=== PATIENT | female | born 1965 | race Caucasian/White ===

== ENCOUNTER 2018-03-11 19:14 | Inpatient (IN) ==
[2018-03-11] MEDS ORDERED: Piperacillin/Tazobactam 3.375 GM in 0.9 % Sodium Chloride Mini Bag 100 ML IVPB ONE (19:53)
--- NOTE | 2018-03-11 20:03 | Emergency Department Note ---
Disposition Clinical Impression: Hyperglycemia, Cellulitis Diabetic foot ulcer Qualifiers: Diabetic foot ulcer location: unspecified part of foot Diabetes mellitus type: type 2 Laterality: right Non-pressure ulcer stage: unspecified non-pressure ulcer stage Qualified Code(s): E11.621 - Type 2 diabetes mellitus with foot ulcer Disposition: Admitted As Inpatient Condition: Fair Time of Disposition: 20:56 General Adult HPI - General Chief complaint: ED Wound/Laceration Stated complaint: Rt foot infection Time Seen by Provider: 03/11/18 19:41 Source: patient Mode of arrival: wheelchair Limitations: no limitations Nursing Notes Reviewed: Yes Vital Signs Reviewed: Yes - History of Present Illness HPI Narrative: 52-year-old female with significant past medical history of diabetes who was previously on insulin but no longer presenting to the emergency department chief complaint of right foot infection. Patient states she noticed a small ulceration on the bottom of her right foot approximately one month ago. Over the past week it has acutely gotten worse and severe redness. She was seen by her primary care physician 2 days ago and given clindamycin. She has been taking as prescribed but the redness has gotten worse and now starting to track up her leg. Patient is unable to walk on the foot. She states she is overall just not feeling well. Denies any fevers but does disclose nausea. Pain Scale: 10 - Related Data Home Medications Medication Instructions Recorded Confirmed Bifidobacterium Infantis [Align] 4 mg PO DAILY 04/20/17 03/11/18 Colestipol HCl [Colestid] 2 gm PO DAILY 04/20/17 03/11/18 Dicyclomine [Bentyl] 20 mg PO QID 04/20/17 03/11/18 Gabapentin [Neurontin] 1,200 mg PO HS 04/20/17 03/11/18 Gabapentin [Neurontin] 800 mg PO BID 04/20/17 03/11/18 Insulin ASPART [Novolog Flexpen] 30 unit SQ DAILY 04/20/17 03/11/18 Insulin Glargine,Hum.rec.anlog 35 unit SQ HS 04/20/17 03/11/18 [Lantus Solostar] Lisinopril-HCTZ 10-12.5 [Prinzide 1 tab PO DAILY 04/20/17 03/11/18 10-12.5] Simvastatin [Zocor] 40 mg PO DAILY 04/20/17 03/11/18 Clindamycin HCl [Cleocin HCl] 300 mg PO TID 03/11/18 03/11/18 Previous Rx's Medication Instructions Recorded Acetaminophen [Tylenol] 650 mg PO Q6HR PRN #0 tablet 01/10/16 Allergies Allergy/AdvReac Type Severity Reaction Status Date / Time No Known Allergies Allergy Verified 04/20/17 08:52 All systems ED: reviewed and negative except as stated. Constitutional: Denies: fever, chills Eyes: Reports: as per HPI ENT ED: Reports: as per HPI Cardiovascular: Denies: chest pain, palpitations, dyspnea on exertion Respiratory: Denies: cough, dyspnea, wheezes Gastrointestinal: Reports: nausea. Denies: abdominal pain, vomiting, diarrhea Genitourinary: Reports: as per HPI Musculoskeletal: Reports: as per HPI Integumentary: Reports: other (Ulceration) Neurological: Denies: headache, weakness Psychiatric: Reports: as per HPI Endocrine: Reports: as per HPI Hematological/Lymphatic: Reports: as per HPI Allergic/Immunologic: Reports: as per HPI Past Medical History - Past Medical History Attestation: Yes The following information was validated with the patient. Medical history: Reports: arthritis, DVT, diabetes, GERD, hyperlipidemia, hypertension, pulmonary embolus Surgical history: Reports: , cholecystectomy, orthopedic, other Psychiatric history: Reports: no psych history ASSISTANT HAIRSTYLIST history: Reports: no ASSISTANT HAIRSTYLIST history - Social History Smoking Status: Never smoker Smokeless Tobacco Status: No Alcohol use: Reports: none Drug use: Reports: none Physical Exam - General Limitations: no limitations General appearance: alert, in no apparent distress - Head Head exam: atraumatic, normocephalic, normal inspection - Eye Eye exam: Present: normal appearance. Absent: scleral icterus, conjunctival injection - ENT ENT exam: normal exam, mucous membranes moist - Neck Neck exam: Present: normal inspection, full ROM. Absent: tenderness, meningismus - Chest Chest inspection: Present: normal inspection, symmetric chest wall rise. Absent : tenderness, rash - Respiratory Respiratory exam: Present: normal lung sounds bilaterally. Absent: respiratory distress, wheezes - Cardiovascular Cardiovascular exam: Present: normal rhythm, tachycardia, normal heart sounds - Abdominal Exam Abdominal exam: Present: soft, Non-Tender. Absent: distention, guarding, rebound - Extremities Exam Extremities exam: Present: other (Ulceration noted to the right all of the foot. Redness surrounding the area with tenderness and swelling. Mild redness tracking up the right lower extremity) - Neurological Exam Neurological exam: Present: alert, oriented X3 - Psychiatric Psychiatric exam: Present: normal affect, normal mood - Skin Skin exam: Present: warm, intact Course Course Narrative: 52-year-old female presenting with diabetic ulcer of the right lower extremity. Patient has failed outpatient therapy with clindamycin. Redness is worse and is starting to track up her leg. Patient also is tachycardic and nauseous but otherwise hemodynamically stable. Patient is alert and oriented 3. At this time will obtain basic laboratory analysis including CBC, BMP along with blood cultures. We will start the patient on IV Zosyn and vancomycin and plan to admit her for further evaluation. Patient agrees with this plan. - Reevaluation(s) Reevaluation #1: Patient's laboratory analysis shows hyperglycemia at 512. We will provide the patient with a liter of fluids and 10 units of insulin at this time. Patient does not have a Therefore no concern for DKA. I spoke with the hospitalist manager transition Dr. Ruiz who agrees to accept the patient at this time. Patient remains alert and oriented 3 with hemodynamically stable vital signs. Patient agrees with this plan. Vital Signs Temperature 98.7 F 03/11/18 19:33 Pulse Rate 117 03/11/18 19:33 Respiratory Rate 20 03/11/18 19:33 Blood Pressure 145/97 03/11/18 19:33 O2 Sat by Pulse Oximetry 98 03/11/18 19:33 Temperature 98.7 F 03/11/18 20:43 Pulse Rate 117 03/11/18 20:43 Respiratory Rate 20 03/11/18 20:43 Blood Pressure 145/97 03/11/18 20:43 O2 Sat by Pulse Oximetry 98 03/11/18 20:43 Oxygen Delivery Oxygen Delivery Room Air Medical Decision Making - Lab Data Result diagrams: 03/11/18 19:59 03/11/18 19:59 Lab Results 03/11/18 03/11/18 Range/Units 19:59 19:59 WBC 10.2 (4.3-11.1) K/mcL RBC 4.41 (3.82-4.97) M/mcL Hgb 13.4 (11.5-15.4) g/dL Hct 37.6 (35.3-44.9) % MCV 85.3 (83.0-100.0) fL MCH 30.4 (28.0-33.3) pg MCHC 35.6 H (31.6-35.5) g/dL RDW 11.8 (11.5-14.5) % Plt Count 241 (140-400) K/mcL MPV 9.6 (9.4-12.4) fL Immature Gran % 0.5 (0-4) % Seg Neutrophils % 84.4 % Lymphocytes % 10.9 % Monocytes % 3.9 % Eosinophils % 0.2 % Basophils % 0.1 % Neutrophils # 8.6 (1.6-8.9) K/mcL Lymphocytes # 1.1 (0.6-4.6) K/mcL Monocytes # 0.4 (0.0-1.3) K/mcL Eosinophils # 0.0 (0.0-0.6) K/mcL Basophils # 0.0 (0.0-0.2) K/mcL Sodium 126 L (136-145) mEq/L Potassium 4.4 (3.5-5.1) mEq/L Chloride 93 L (98-107) mEq/L Carbon Dioxide 24 (23-29) mEq/L BUN 11 (6-20) mg/dL Creatinine 0.72 (0.60-1.20) mg/dL Est GFR ( Amer) > 60 (> 60) Est GFR (Non-Af Amer) > 60 (> 60) BUN/Creatinine Ratio 15 (6-26) Glucose 512 H* (70-105) mg/dL Calculated Osmolality 284 (280-300) Calcium 9.6 (8.6-10.3) mg/dL Attestation Statement - Attestation Attestation: I, Mateusz Serrano DO, examined this patient [id number] and my medical decision-making was reviewed with Dr. Kaye Kemp, Resident Physician. I agree with the documented findings, disposition and treatment plan as described except to the extent set forth below. Please see my progress notes for details.
[2018-03-11 20:13] LABS: Basophils % 0.1 %; Eosinophils % 0.2 %; Hematocrit 37.6 % (35.3-44.9); Hemoglobin 13.4 g/dL (11.5-15.4); Immature Granulocytes % 0.5 % (0-4); Lymphocytes # 1.1 K/mcL (0.6-4.6); Lymphocytes % 10.9 %; Mean Corpuscular HGB Conc 35.6 g/dL (31.6-35.5); Mean Corpuscular Hemoglobin 30.4 pg (28.0-33.3); Mean Corpuscular Volume 85.3 fL (83.0-100.0); Mean Platelet Volume 9.6 fL (9.4-12.4); Monocytes # 0.4 K/mcL (0.0-1.3); Monocytes % 3.9 %; Neutrophils # 8.6 K/mcL (1.6-8.9); Platelet Count 241 K/mcL (140-400); Red Blood Count 4.41 M/mcL (3.82-4.97); Red Cell Distribution Width 11.8 % (11.5-14.5); Segmented Neutrophils % 84.4 %
[2018-03-11] MEDS ORDERED: Ondansetron 4 MG/2 ML VIAL IVP ONE (20:20)
[2018-03-11 20:42] LABS: BUN/Creatinine Ratio 15 (6-26); Blood Urea Nitrogen 11 mg/dL (6-20); Calcium 9.6 mg/dL (8.6-10.3); Carbon Dioxide 24 mEq/L (23-29); Chloride 93 mEq/L (98-107); Glucose 512 mg/dL (70-105); Osmolality,Calculated 284 (280-300); Potassium 4.4 mEq/L (3.5-5.1); Sodium 126 mEq/L (136-145); eGFR For Non-African Americans > 60 (> 60)
[2018-03-11] MEDS ORDERED: Insulin Human Regular 10 UNIT in 0.9 % Sodium Chloride 10 ML IV ONE (20:43)
[2018-03-11] MEDS ORDERED: 0.9 % Sodium Chloride 1,000 ML IVC ONE (20:44)
[2018-03-11] MEDS ORDERED: *HR* HYDROcodone/Acet 5/325 mg TABLET PO ONE (20:56)
[2018-03-11 21:05] LABS: Estimated Average Glucose 332 mg/dl; Hemoglobin A1C 13.2 %
--- NOTE | 2018-03-11 21:07 | Emergency Department Note ---
Disposition Clinical Impression: Hyperglycemia, Cellulitis Diabetic foot ulcer Qualifiers: Diabetic foot ulcer location: unspecified part of foot Diabetes mellitus type: type 2 Laterality: right Non-pressure ulcer stage: unspecified non-pressure ulcer stage Qualified Code(s): E11.621 - Type 2 diabetes mellitus with foot ulcer Disposition: Admitted As Inpatient Condition: Fair Time of Disposition: 21:07 General Adult HPI - General Chief complaint: ED Extremity Problem,Nontraumatic Stated complaint: Rt foot infection Time Seen by Provider: 03/11/18 19:41 Source: patient Mode of arrival: wheelchair Limitations: no limitations - History of Present Illness Pain Scale: 10 - Related Data Home Medications Medication Instructions Recorded Confirmed Bifidobacterium Infantis [Align] 4 mg PO DAILY 04/20/17 03/11/18 Colestipol HCl [Colestid] 2 gm PO DAILY 04/20/17 03/11/18 Dicyclomine [Bentyl] 20 mg PO QID 04/20/17 03/11/18 Gabapentin [Neurontin] 1,200 mg PO HS 04/20/17 03/11/18 Gabapentin [Neurontin] 800 mg PO BID 04/20/17 03/11/18 Insulin ASPART [Novolog Flexpen] 30 unit SQ DAILY 04/20/17 03/11/18 Insulin Glargine,Hum.rec.anlog 35 unit SQ HS 04/20/17 03/11/18 [Lantus Solostar] Lisinopril-HCTZ 10-12.5 [Prinzide 1 tab PO DAILY 04/20/17 03/11/18 10-12.5] Simvastatin [Zocor] 40 mg PO DAILY 04/20/17 03/11/18 Clindamycin HCl [Cleocin HCl] 300 mg PO TID 03/11/18 03/11/18 Previous Rx's Medication Instructions Recorded Acetaminophen [Tylenol] 650 mg PO Q6HR PRN #0 tablet 01/10/16 Allergies Allergy/AdvReac Type Severity Reaction Status Date / Time No Known Allergies Allergy Verified 04/20/17 08:52 Constitutional: Denies: fever, chills Eyes: Reports: as per HPI ENT ED: Reports: as per HPI Cardiovascular: Denies: chest pain, palpitations, dyspnea on exertion Respiratory: Denies: cough, dyspnea, wheezes Gastrointestinal: Reports: nausea. Denies: abdominal pain, vomiting, diarrhea Genitourinary: Reports: as per HPI Musculoskeletal: Reports: as per HPI Integumentary: Reports: other (Ulceration) Neurological: Denies: headache, weakness Psychiatric: Reports: as per HPI Endocrine: Reports: as per HPI Hematological/Lymphatic: Reports: as per HPI Allergic/Immunologic: Reports: as per HPI Past Medical History - Past Medical History Medical history: Reports: arthritis, DVT, diabetes, GERD, hyperlipidemia, hypertension, pulmonary embolus Surgical history: Reports: , cholecystectomy, orthopedic, other Psychiatric history: Reports: no psych history AIRPLANE COVERER history: Reports: no AIRPLANE COVERER history - Social History Smoking Status: Never smoker Smokeless Tobacco Status: No Alcohol use: Reports: none Drug use: Reports: none Physical Exam - General Limitations: no limitations General appearance: alert, in no apparent distress Course Vital Signs Temperature 98.7 F 03/11/18 19:33 Pulse Rate 117 03/11/18 19:33 Respiratory Rate 20 03/11/18 19:33 Blood Pressure 145/97 03/11/18 19:33 O2 Sat by Pulse Oximetry 98 03/11/18 19:33 Temperature 98.7 F 03/11/18 20:43 Pulse Rate 117 03/11/18 20:43 Respiratory Rate 20 03/11/18 20:43 Blood Pressure 145/97 03/11/18 20:43 O2 Sat by Pulse Oximetry 98 03/11/18 20:43 Oxygen Delivery Oxygen Delivery Room Air Medical Decision Making - Lab Data Result diagrams: 03/11/18 19:59 03/11/18 19:59 Lab Results 03/11/18 03/11/18 Range/Units 19:59 19:59 WBC 10.2 (4.3-11.1) K/mcL RBC 4.41 (3.82-4.97) M/mcL Hgb 13.4 (11.5-15.4) g/dL Hct 37.6 (35.3-44.9) % MCV 85.3 (83.0-100.0) fL MCH 30.4 (28.0-33.3) pg MCHC 35.6 H (31.6-35.5) g/dL RDW 11.8 (11.5-14.5) % Plt Count 241 (140-400) K/mcL MPV 9.6 (9.4-12.4) fL Immature Gran % 0.5 (0-4) % Seg Neutrophils % 84.4 % Lymphocytes % 10.9 % Monocytes % 3.9 % Eosinophils % 0.2 % Basophils % 0.1 % Neutrophils # 8.6 (1.6-8.9) K/mcL Lymphocytes # 1.1 (0.6-4.6) K/mcL Monocytes # 0.4 (0.0-1.3) K/mcL Eosinophils # 0.0 (0.0-0.6) K/mcL Basophils # 0.0 (0.0-0.2) K/mcL Sodium 126 L (136-145) mEq/L Potassium 4.4 (3.5-5.1) mEq/L Chloride 93 L (98-107) mEq/L Carbon Dioxide 24 (23-29) mEq/L BUN 11 (6-20) mg/dL Creatinine 0.72 (0.60-1.20) mg/dL Est GFR ( Amer) > 60 (> 60) Est GFR (Non-Af Amer) > 60 (> 60) BUN/Creatinine Ratio 15 (6-26) Glucose 512 H* (70-105) mg/dL Calculated Osmolality 284 (280-300) Calcium 9.6 (8.6-10.3) mg/dL Attestation Statement - Attestation Attestation: I, Mateusz Serrano DO, examined this patient [id number] and my medical decision-making was reviewed with Dr. Kaye Kemp, Resident Physician. I agree with the documented findings, disposition and treatment plan as described except to the extent set forth below. Please see my progress notes for details. 52-year-old female presents emergency room for evaluation of right foot wound. Patient has had poorly controlled diabetes for several months. She has not been able to get her medications for her diabetes secondary to insurance related issues. Currently she is denying chest pain shortness of breath headache vision changes nausea vomiting or diarrhea. No fevers no chills. Patient has had generalized funny sensation across her body over the last several days mainly when this wound or redness is coming up on her foot. Patient denies any trauma or injuries no puncture wounds noted. She is up-to- date on her tetanus within the last 5 years. She has not traveled outside the country and has no other concerning issues. Main complaint is the wound in the foot no redness. On physical exam she has warmth redness and discomfort into the calf of the right leg and goes down over the ankle and into the foot. At the plantar aspect of the great toe over the base of the MTP the patient has redness and what appears to be diabetic foot ulcer that still has skin and thickened callus over the apex of the MTP with redness and stranding going away from it. There is concern for diabetic foot ulcer is infected. X-ray was completed yesterday outside facility did not show any bony deterioration or abnormality. Refrain from reordering x-ray this time. Patient will be started on IV antibiotics as well as fluids. She was tachycardic initially but was afebrile. Being labs including CBC and chemistry will be added on at this time as well as a glucose and an A1c. Concern is noted for the patient having severe. Controlled glucose that is requiring other intervention. She does not have any specific history of diabetic ketoacidosis. Patient was symptomatic control. Admission process will be established. See detailed documentation of the physical exam, medical intervention, medical decision-making and disposition the resident physician's note. No critical care provider the patient's treatment course at this time. 2100 Patient has a glucose of greater than 500. 10 units of insulin will be given at this time for symptomatic control. She does not have any signs of diabetic ketoacidosis. IV antibiotics have been provided. Hospitalist Dr. Allred has reviewed the case and has no other recommendations or concern. Patient will be admitted for continuation of care endocrinology evaluation, diabetes control, podiatry evaluation. Patient is informed she is comfortable this plan. No other intervention is required at this point. Patient will be admitted for continuation of care. She will be observed in emergency room until admission process is completed.
[2018-03-12] MEDS ORDERED: Naloxone 0.4 MG/ML INJ IVP PRN (00:21)
[2018-03-12] MEDS ORDERED: D5% in Water 1,000 ML IVC PRN (00:31)
[2018-03-12] MEDS ORDERED: *HR* Dextrose 50 % in Water (Syg) 50 ML SYRINGE IVP PRN (00:31)
[2018-03-12] MEDS ORDERED: Dextrose Gel 15 GM/37.5 ML TUBE PO PRN ×2 (00:31)
--- NOTE | 2018-03-12 00:34 | Internal Med History&Physical ---
Date of Encounter: 03/12/18 Time of Encounter: 00:34 Internal Medicine - H&P: HPI Chief complaint: Diabetic Foot Ulcer Admitted From: Emergency Dept Plans for Post Hospital Care: Home History of present illness: Ms. Santo is a 52 year old female with a past medical history of deep venous thrombosis, diabetes mellitus, GERD, hyperlipidemia, hypertension, pulmonary embolism. She presented to the ED on 03/11 with the chief complaint of worsening redness, pain, and swelling of a right foot wound. She states she visited her PCP 2 days ago and was started on clindamycin however it has not improved. She admits to additional chills, nausea, and intermittent chest pain. She denies fever or shortness of breath. She denies tobacco/acohol/drug use. In the ED she was slightly tachycardic but vital signs were otherwise within normal limits. White count was not elevated. Blood cultures were drawn and she was given 1L bolus normal saline, 1 dose IV Vancomycin and 1 dose IV Zosyn. Past Med Surg Social Fam HX - Past Medical History Medical history: arthritis, DVT, diabetes, GERD, hyperlipidemia, hypertension, pulmonary embolus Psychiatric history: depression - Past Surgical History Surgical History: , cholecystectomy, orthopedic, other, IVC filter Additional surgical history: ANNMARIE FILTER. uterine ablation. right achilles tendon repair. colonoscopy - Social History Smoking Status: Never smoker Smokeless Tobacco Status: No Alcohol use: none Drug use: none - Family History Mother Adopted: [place]: Amelia Age: 70 Living Status: Age at : 70 Cause of : cancer and diabetes Hx Family Cardiac Disorders: Yes (PACEMAKER, [place] X3 WITH STENTS, HTN) Hx Family Respiratory Disorders: Yes (COPD) Hx Family Cancer: Yes (stomach) Hx Family GI Disorders: (GERD) Hx Family Endocrine Disorder: Yes (diabetes) Father Adopted: [place]: Santhosh Age: 36 Family Member Ethnicity: Non- Living Status: Age at : 36 Cause of : etoh Hx Family Cardiac Disorders: No Hx Family Respiratory Disorders: No Hx Family Cancer: No Hx Family GI Disorders: No Hx Family Endocrine Disorder: Yes (cirrohsis) Hx Family Neuromuscular Disorders: No Hx Family Neurologic Disorders: No Hx Family HEENT Disorders: No Hx Family Autoimmune Disorders: No Sister Adopted: [place]: Marsha Age: 36 Living Status: Age at : 36 Cause of : sepsis and diabetes Hx Family Endocrine Disorder: Yes (diabetes) Internal Medicine - H&P: Meds Acetaminophen [Tylenol] 650 mg PO Q6HR PRN #0 tablet 01/10/16 [Rx] Bifidobacterium Infantis [Align] 4 mg PO DAILY 04/20/17 [History] Colestipol HCl [Colestid] 2 gm PO DAILY 04/20/17 [History] Dicyclomine [Bentyl] 20 mg PO QID 04/20/17 [History] Gabapentin [Neurontin] 1,600 mg PO HS 04/20/17 [History] Gabapentin [Neurontin] 800 mg PO BID 04/20/17 [History] Insulin ASPART [Novolog Flexpen] 30 unit SQ DAILY 04/20/17 [History] Insulin Glargine,Hum.rec.anlog [Lantus Solostar] 35 unit SQ HS 04/20/17 [History ] Lisinopril-HCTZ 10-12.5 [Prinzide 10-12.5] 1 tab PO DAILY 04/20/17 [History] Simvastatin [Zocor] 40 mg PO DAILY 04/20/17 [History] Clindamycin HCl [Cleocin HCl] 300 mg PO TID 03/11/18 [History] 3 Allergy/AdvReac Type Severity Reaction Status Date / Time No Known Allergies Allergy Verified 04/20/17 08:52 All Systems PM: A 10-system review of systems was performed and is negative for pertinent findings except as documented above in the HPI. - Constitutional Constitutional: chills, no fever(s), no malaise - Cardiovascular Cardiovascular ROS IM: chest pain, no diaphoresis, no dyspnea, no dyspnea on exertion, no irregular heart rhythm, no palpitations, no syncope - Respiratory Respiratory: no cough, no dyspnea, no dyspnea on exertion - Gastrointestinal Gastrointestinal: nausea, vomiting, no abdominal pain, no diarrhea - Musculoskeletal Musculoskeletal ROS IM: arthralgias, numbness - Integumentary Integumentary IM: erythema, new lesions, non-healing lesions - Neurological Neurological ROS: no abnormal speech, no focal weakness, no weakness - Psychiatric Psychiatric: no confusion - Constitutional Vitals: Temp Pulse Resp BP Pulse Ox 98.9 F 112 14 131/85 99 03/11/18 22:38 03/11/18 22:38 03/11/18 22:38 03/11/18 22:38 03/11/18 22:38 Exam: Patient no acute distress, alert and oriented 3 Cranial nerves II through XII intact Heart in regular rate and rhythm, no murmur or gallop Lungs clear to auscultation bilaterally without wheeze or rales or rhonchi Abdomen soft and nontender with normal bowel sounds present Bilateral lower extremities 1+ pitting edematous Right foot exhibits heavy callus formation the plantar aspect of the first MTP, with surrounding edema and erythema that is contiguous throughout the medial aspect of the forefoot, the edema continues up past the ankle, there is no open wound area Motor is intact in all 5 digits and in the ankle, sensation is intact throughout the foot but diminished in the toes Right foot is tender to palpation throughout up past the ankle and into the lower leg Skin is warm and dry Internal Med - H&P Results - Labs CBC & Chem 7: 03/12/18 01:30 03/11/18 19:59 - Assessment and plan (1) Diabetic foot ulcer Current Visit: Yes Status: Acute Assessment and plan: Patient presented with worsening right foot wound Exam does not reveal open wound however there is most likely ulcer underneath chronic callus formation resulting in concurrent cellulitis She was tried on 2 days of clindamycin via PCP but had increasing redness, swelling, and pain On presentation she was tachycardic but vitals were otherwise within normal limits White blood cell count was within normal limits, does not meet SIRS criteria Received 1 L bolus normal saline, 1 dose of vancomycin, 1 dose Zosyn Blood Cultures drawn, patient has history of MRSA wound 01/05/18 Plan MIVF normal saline 125ml/hr x 2L IV Vancomycin, IV Zosyn Monitor Blood Cultures Podiatry Consult Qualifiers: Diabetic foot ulcer location: unspecified part of foot Diabetes mellitus type: type 2 Laterality: right Non-pressure ulcer stage: unspecified non- pressure ulcer stage Qualified Code(s): E11.621 - Type 2 diabetes mellitus with foot ulcer; L97.519 - Non-pressure chronic ulcer of other part of right foot with unspecified severity (2) Chest pain Current Visit: Yes Status: Acute Assessment and plan: Patient mentioned 1 day of sharp intermittent chest pain Patient does not have cardiac history EKG showed sinus rhythm, troponin <0.03 Plan Continue to monitor Qualifiers: Chest pain type: unspecified Qualified Code(s): R07.9 - Chest pain, unspecified (3) DVT (deep venous thrombosis) Current Visit: Yes Status: Suspected Assessment and plan: Patient complains of right lower leg pain with swelling She has a history of recurrent DVTs and pulmonary embolism She has a Kingsley IVC filter and is not on anticoagulation. Plan Heparin Drip standard dose Doppler scheduled in AM Qualifiers: DVT location: lower extremity Affected thrombotic vein of extremity: unspecified lower extremity distal vein Chronicity: unspecified Laterality: right Qualified Code(s): I82.4Z1 - Acute embolism and thrombosis of unspecified deep veins of right distal lower extremity (4) Hyperglycemia due to type 2 diabetes mellitus Current Visit: Yes Status: Acute Assessment and plan: Glucose found to be 512 on admission She states that she has been unable to get her home insulin because of an insurance change 10 units short-acting insulin were given Glucose recheck was in the low 200s Plan 10 units basal levemir HS low dose SSI protocol with glucose checks ACHS Diabetic Diet Qualifiers: Diabetes mellitus mcc insulin use: with mcc use Qualified Code( s): E11.65 - Type 2 diabetes mellitus with hyperglycemia; Z79.4 - [facility] ( current) use of insulin (5) HTN (hypertension) Current Visit: No Status: Chronic Assessment and plan: Patient has chronic hypertension managed with home medications Blood pressure stable here We will continue home lisinopril Qualifiers: Hypertension type: essential hypertension Qualified Code(s): I10 - Essential (primary) hypertension (6) HLD (hyperlipidemia) Current Visit: No Status: Chronic Assessment and plan: Patient has history of chronic hyperlipidemia managed with home medications We will resume home simvastatin Qualifiers: Hyperlipidemia type: unspecified Qualified Code(s): E78.5 - Hyperlipidemia , unspecified (7) DVT prophylaxis Current Visit: No Status: Acute Assessment and plan: Heparin drip - Time Spent With Patient Total time spent is greater than 50% in coordination of care (as documented) at patient's floor/unit and/or counseling patient:
[2018-03-12] MEDS ORDERED: *HR* Heparin 5,000 UNIT/ML VIAL IVP PRN ×2 (01:14)
[2018-03-12] MEDS ORDERED: *HR* Heparin 5,000 UNIT/ML VIAL IVP ONE (01:14)
[2018-03-12] MEDS ORDERED: Heparin 25,000 UNIT/500 ML D5W 25,000 UNIT/500 ML BAG IVC SCH (01:15)
[2018-03-12] MEDS: Gabapentin 400 MG CAPSULE PO SCH ×4 (01:22→20:09)
[2018-03-12] MEDS: 0.9 % Sodium Chloride 1,000 ML IVC SCH ×2 (01:23→10:26)
[2018-03-12 01:56] LABS: Basophils % 0.2 %; Eosinophils # 0.1 K/mcL (0.0-0.6); Eosinophils % 0.6 %; Hematocrit 32.7 % (35.3-44.9); Immature Granulocytes % 0.3 % (0-4); Lymphocytes # 1.8 K/mcL (0.6-4.6); Lymphocytes % 18.1 %; Mean Corpuscular HGB Conc 35.2 g/dL (31.6-35.5); Mean Corpuscular Hemoglobin 30.2 pg (28.0-33.3); Mean Corpuscular Volume 85.8 fL (83.0-100.0); Mean Platelet Volume 9.6 fL (9.4-12.4); Monocytes # 0.5 K/mcL (0.0-1.3); Monocytes % 5.2 %; Neutrophils # 7.7 K/mcL (1.6-8.9); Platelet Count 225 K/mcL (140-400); Red Blood Count 3.81 M/mcL (3.82-4.97); Red Cell Distribution Width 11.9 % (11.5-14.5); Segmented Neutrophils % 75.6 %
[2018-03-12 01:58] LABS: Hematocrit 35.3 % (35.3-44.9); Hemoglobin 12.1 g/dL (11.5-15.4); Mean Corpuscular HGB Conc 34.3 g/dL (31.6-35.5); Mean Corpuscular Hemoglobin 29.7 pg (28.0-33.3); Mean Corpuscular Volume 86.7 fL (83.0-100.0); Mean Platelet Volume 9.3 fL (9.4-12.4); Platelet Count 232 K/mcL (140-400); Red Blood Count 4.07 M/mcL (3.82-4.97); Red Cell Distribution Width 11.6 % (11.5-14.5)
[2018-03-12 02:00] LABS: Hemoglobin 11.5 g/dL (11.5-15.4)
[2018-03-12 02:01] LABS: Heparin anti-factor XA UFH 0.04 IU/mL (0.30-0.70); Prothrombin Time 10.8 Seconds (9.4-12.1)
[2018-03-12 02:11] LABS: BUN/Creatinine Ratio 19 (6-26); Blood Urea Nitrogen 9 mg/dL (6-20); Calcium 8.5 mg/dL (8.6-10.3); Carbon Dioxide 21 mEq/L (23-29); Chloride 102 mEq/L (98-107); Glucose 295 mg/dL (70-105); Osmolality,Calculated 286 (280-300); Potassium 3.6 mEq/L (3.5-5.1); Sodium 133 mEq/L (136-145); eGFR For Non-African Americans > 60 (> 60)
[2018-03-12] MEDS ORDERED: Insulin LISPRO 300 UNITS/3 ML VIAL SQ SCH (07:30)
--- NOTE | 2018-03-12 08:53 | Podiatry Progress Note ---
Date of Encounter: 03/12/18 Time of Encounter: 08:50 - Assessment and Plan (1) Cellulitis Current Visit: Yes Status: Acute Continue IV antibiotics. Patient advised to elevate and compression on the right foot. Qualifiers: Qualified Code(s): L03.115 - Cellulitis of right lower limb (2) Diabetic foot ulcer Current Visit: Yes Status: Acute X-rays are reviewed of the right foot. No evidence of soft tissue emphysema at this time. No evidence of foreign body. Given elevated ESR and CRP, I recommend MRI of the right foot to evaluate for soft tissue involvement or deep abscess. Continue IV antibiotics. We will discuss any surgical treatment plan based on MRI results. Qualifiers: Diabetic foot ulcer location: unspecified part of foot Diabetes mellitus type: type 2 Laterality: right Non-pressure ulcer stage: unspecified non- pressure ulcer stage Qualified Code(s): E11.621 - Type 2 diabetes mellitus with foot ulcer; L97.519 - Non-pressure chronic ulcer of other part of right foot with unspecified severity (3) Abscess Current Visit: Yes Status: Acute Culture taken at bedside. Aerobe and anaerobe cultures sent to micro. Antibiotics to be tailored toward sensitivities. Subjective Principal diagnosis: cellulitis Interval history: Ms. Santo is an uncontrolled type II diabetic presenting with acute diabetic foot infection. She reports that she developed worsening redness and drainage from a chronic right plantar foot wound over the past week. She reports nausea over the past 2 days. She denies any history of non-healing wounds or diabetic foot infections. She is not sure what caused the initial wound. The foot feels warm and redness has worsened. Objective - Vital Signs Vital Signs: Vital Signs Temp Pulse Resp BP Pulse Ox 03/12/18 06:54 98.4 F 98 16 121/80 95 03/12/18 03:00 98.5 F 91 15 117/75 97 03/11/18 22:38 98.9 F 112 14 131/85 99 03/11/18 21:50 100.0 F H 18 144/97 Intake and Output 03/11/18 03/12/18 03/12/18 23:59 07:59 15:59 Intake Total 1350 / 1350 0 / 0 Output Total 0 / 0 1050 / 1050 Balance 1350 / 1350 -1050 / -1050 Intake: IV Fluids 1350 / 1350 0.9 % Sodium Chloride 1,000 ML 1000 / 1000 @ 999 mls/hr IVC .Q1H1M [facility] Rx# :[id number] Zosyn 3.375 GM In 0.9 % Sodium 100 / 100 Chloride (Mini-Bag +) 100 ML @ 25 mls/hr IVPB ONCE [facility] Rx#: [id number] Vancocin 1,250 MG In 0.9 % 250 / 250 Sodium Chloride 250 ML @ 167 mls/hr IVPB ONCE [facility] Rx#: [id number] Oral 0 / 0 0 / 0 Output: Urine 0 / 0 1050 / 1050 Other: # Voids 1 # Bowel Movements 0 0 Weight 77.6 kg 76.4 kg Blood Glucose* 512 318 Patient Weight 03/12/18 23:59 Weight 76.4 kg - Exam Exam: Vascular: DP and PT 1+ bilateral. Capillary refill less than 3 seconds all digits. Right forefoot warm to touch. Dermatology: Right plantar first metatarsal head and hyperkeratotic tissue with underlying ulceration approximately 1cm x 1cm x 1.5cm. Small amount of purulence expressed from the ulceration upon debridement. Wound did not probe to bone. Erythema extending dorsally to level of midfoot. Musculoskeletal: Tenderness with palpation right plantar first MPJ. Mild pain with range of motion of first MPJ. No crepitus noted. Neuro: Sensation diminished to forefoot. - Lab Result Diagrams: 03/12/18 01:30 03/12/18 01:05 Labs: Abnormal lab results MPV 9.3 fL (9.4-12.4) L 03/12/18 01:30 Sodium 133 mEq/L (136-145) L 03/12/18 01:05 Carbon Dioxide 21 mEq/L (23-29) L 03/12/18 01:05 Creatinine 0.48 mg/dL (0.60-1.20) L 03/12/18 01:05 Glucose 295 mg/dL (70-105) H 03/12/18 01:05 POC Glucose 277 mg/dL (70-99) H 03/12/18 01:23 Hemoglobin A1c 13.2 % (-5.6) H 03/11/18 20:32 Calcium 8.5 mg/dL (8.6-10.3) L 03/12/18 01:05 Consult Discharge Plan - Plan Referrals: Heriberto Quach DO [Primary Care Provider] -
[2018-03-12] MEDS ORDERED: COLESTIPOL HCL 2 GM PO SCH (09:00)
[2018-03-12] MEDS ORDERED: Insulin DETEMIR 100 UNIT/ML X5UNITS SQ SCH ×2 (09:00→21:00)
[2018-03-12] MEDS: Piperacillin/Tazobactam 3.375 GM in 0.9 % Sodium Chloride Mini Bag 100 ML IVPB SCH ×3 (10:29→23:47)
[2018-03-12] MEDS: Acetaminophen 325 MG TABLET PO PRN (10:56)
--- NOTE | 2018-03-12 11:40 | Internal Med Progress Note ---
Hospitalist Progress Note - Encounter Date of Encounter: 03/12/18 Time of Encounter: 17:00 - Exam Vitals: Temp Pulse Resp BP Pulse Ox 98.4 F 93 16 153/93 98 03/12/18 11:05 03/12/18 11:05 03/12/18 11:05 03/12/18 11:05 03/12/18 11:05 Exam: Patient no acute distress, alert and oriented 3 Cranial nerves II through XII intact Heart in regular rate and rhythm, no murmur or gallop Lungs clear to auscultation bilaterally without wheeze or rales or rhonchi Abdomen soft and nontender with normal bowel sounds present Bilateral lower extremities 1+ pitting edematous Right foot warm and tender to palpation, dressing applied by podiatry team after examination Motor is intact in all 5 digits and in the ankle, sensation is intact throughout the foot but diminished in the toes - Assessment and Plan (1) Chest pain Current Visit: Yes Status: Acute Code(s): R07.9 - Chest pain, unspecified SNOMED Code(s): 22455738 (2) Hyperglycemia due to type 2 diabetes mellitus Current Visit: Yes Status: Acute Code(s): E11.65 - Type 2 diabetes mellitus with hyperglycemia SNOMED Code(s): 705734251943843, 026697173882902 (3) HTN (hypertension) Current Visit: No Status: Chronic Code(s): I10 - Essential (primary) hypertension SNOMED Code(s): 69340991 (4) HLD (hyperlipidemia) Current Visit: No Status: Chronic Code(s): E78.5 - Hyperlipidemia, unspecified SNOMED Code(s): 24894139 (5) DVT prophylaxis Current Visit: No Status: Acute (6) Diabetic foot ulcer Current Visit: Yes Status: Acute (7) DVT (deep venous thrombosis) Current Visit: Yes Status: Suspected (8) Chronic pancreatitis Current Visit: Yes Status: Acute - Summary of Assessment and Plan Summary of Assessment and Plan: Continue current antibiotic, awaiting MRI results, adjust insulin dosing, with her history of chronic diarrhea associated with food, history of pancreatitis in the past. Counseling patient about pancreatic replacement as a therapeutic and diagnostic option, will add pancreatic enzyme and monitor. - Time Spent with Patient Total time spent is greater than 50% in coordination of care (as documented) at patient's floor/unit and/or counseling patient: 25 - 35 minutes Internal Medicine: Result - Labs CBC & Chem 7: 03/12/18 01:30 03/12/18 01:05 Labs: Short CBC 03/12/18 03/12/18 Range/Units 01:05 01:30 WBC 10.2 11.0 (4.3-11.1) K/mcL Hgb 11.5 D 12.1 (11.5-15.4) g/dL Hct 32.7 L 35.3 (35.3-44.9) % Plt Count 225 232 (140-400) K/mcL Neutrophils # 7.7 (1.6-8.9) K/mcL BMP 03/12/18 01:05 Sodium 133 L Potassium 3.6 Chloride 102 Carbon Dioxide 21 L BUN 9 Creatinine 0.48 L Glucose 295 H Calcium 8.5 L Cardiac Enzymes 03/12/18 Range/Units 01:34 Troponin I < 0.03 (< 0.04) ng/mL - ABG Interpretation ABG results: PT/INR, D-dimer PT 10.8 Seconds (9.4-12.1) 03/12/18 01:30 - Impressions Impressions Foot X-Ray 03/12/18 08:47 IMPRESSION: Severe soft tissue swelling of the forefoot which has worsened since 03/10. No radiographic evidence of soft tissue abscess or osteomyelitis. D/ / Jeanmarie Robbins MD / Jeanmarie Robbins MD Interpreting Provider: Jeanmarie Robbins MD Consult Discharge Plan - Plan Referrals: Heriberto Quach DO [Primary Care Provider] - (1) Chest pain Qualifiers: Chest pain type: unspecified Qualified Code(s): R07.9 - Chest pain, unspecified (2) Hyperglycemia due to type 2 diabetes mellitus Qualifiers: Diabetes mellitus shelter insulin use: with director long term care use Qualified Code(s) : E11.65 - Type 2 diabetes mellitus with hyperglycemia; Z79.4 - [facility] ( current) use of insulin (3) HTN (hypertension) Qualifiers: Hypertension type: essential hypertension Qualified Code(s): I10 - Essential (primary) hypertension (4) HLD (hyperlipidemia) Qualifiers: Hyperlipidemia type: unspecified Qualified Code(s): E78.5 - Hyperlipidemia, unspecified (6) Diabetic foot ulcer Qualifiers: Diabetic foot ulcer location: unspecified part of foot Diabetes mellitus type : type 2 Laterality: right Non-pressure ulcer stage: unspecified non-pressure ulcer stage Qualified Code(s): E11.621 - Type 2 diabetes mellitus with foot ulcer; L97.519 - Non-pressure chronic ulcer of other part of right foot with unspecified severity (7) DVT (deep venous thrombosis) Qualifiers: DVT location: lower extremity Affected thrombotic vein of extremity: unspecified lower extremity distal vein Chronicity: unspecified Laterality: right Qualified Code(s): I82.4Z1 - Acute embolism and thrombosis of unspecified deep veins of right distal lower extremity (8) Chronic pancreatitis Qualifiers: Pancreatitis type: idiopathic Qualified Code(s): K86.1 - Other chronic pancreatitis
[2018-03-12] MEDS ORDERED: Gadolinium Contrast Agent (WT Based) IV PRN (12:00)
[2018-03-12] MEDS: Insulin LISPRO 300 UNITS/3 ML VIAL SQ SCH ×3 (13:01→22:21)
[2018-03-12] MEDS: traMADol 50 MG TABLET PO PRN (20:14)
[2018-03-12] MEDS ORDERED: Gabapentin 400 MG CAPSULE PO SCH (21:00)
[2018-03-12] MEDS: Insulin DETEMIR 100 UNIT/ML X5UNITS SQ SCH (22:21)
[2018-03-12] MEDS: *HR* Heparin 5,000 UNIT/ML VIAL SQ SCH (22:22)
[2018-03-13 01:30] LABS: Basophils % 0.4 %; Eosinophils # 0.1 K/mcL (0.0-0.6); Eosinophils % 0.7 %; Hematocrit 32.3 % (35.3-44.9); Hemoglobin 11.3 g/dL (11.5-15.4); Immature Granulocytes % 0.5 % (0-4); Lymphocytes # 1.3 K/mcL (0.6-4.6); Lymphocytes % 15.6 %; Mean Corpuscular Hemoglobin 30.2 pg (28.0-33.3); Mean Corpuscular Volume 86.4 fL (83.0-100.0); Mean Platelet Volume 9.3 fL (9.4-12.4); Monocytes # 0.5 K/mcL (0.0-1.3); Monocytes % 5.7 %; Neutrophils # 6.6 K/mcL (1.6-8.9); Platelet Count 216 K/mcL (140-400); Red Blood Count 3.74 M/mcL (3.82-4.97); Red Cell Distribution Width 11.7 % (11.5-14.5); Segmented Neutrophils % 77.1 %
[2018-03-13 01:54] LABS: BUN/Creatinine Ratio 12 (6-26); Blood Urea Nitrogen 7 mg/dL (6-20); Calcium 8.6 mg/dL (8.6-10.3); Carbon Dioxide 23 mEq/L (23-29); Chloride 99 mEq/L (98-107); Glucose 323 mg/dL (70-105); Magnesium 1.6 mg/dL (1.6-2.6); Osmolality,Calculated 278 (280-300); Phosphorous 2.2 mg/dL (2.7-4.5); Potassium 3.7 mEq/L (3.5-5.1); Sodium 129 mEq/L (136-145); eGFR For Non-African Americans > 60 (> 60)
[2018-03-13] MEDS: traMADol 50 MG TABLET PO PRN (04:08)
[2018-03-13] MEDS: *HR* Heparin 5,000 UNIT/ML VIAL SQ SCH ×3 (06:24→21:39)
[2018-03-13] MEDS: Piperacillin/Tazobactam 3.375 GM in 0.9 % Sodium Chloride Mini Bag 100 ML IVPB SCH ×3 (08:18→23:54)
[2018-03-13] MEDS: Gabapentin 400 MG CAPSULE PO SCH ×3 (08:19→21:39)
[2018-03-13] MEDS: Insulin LISPRO 300 UNITS/3 ML VIAL SQ SCH ×6 (08:19→21:40)
[2018-03-13] MEDS: Insulin DETEMIR 100 UNIT/ML X5UNITS SQ SCH ×2 (09:03→21:45)
--- NOTE | 2018-03-13 11:10 | Podiatry Progress Note ---
Date of Encounter: 03/13/18 Time of Encounter: 11:20 - Assessment and Plan (1) Cellulitis Current Visit: Yes Status: Acute Continue IV antibiotics. Patient advised to elevate and compression on the right foot. Can likely discharge on PO antibiotics tomorrow if improved. Qualifiers: Qualified Code(s): L03.115 - Cellulitis of right lower limb (2) Diabetic foot ulcer Current Visit: Yes Status: Acute X-rays and MRI reviewed. No evidence of soft tissue emphysema at this time. No evidence of deep abscess, osteomyelitis, or septic arthritis. No evidence of foreign body. Continue with local wound care and IV antibiotics. Patient can likely discharge tomorrow with PO antibiotics if cellulitis continues to improve. Will need follow up with Dr. Fredis Moser at [facility] 2 weeks after discharge. Qualifiers: Diabetic foot ulcer location: unspecified part of foot Diabetes mellitus type: type 2 Laterality: right Non-pressure ulcer stage: unspecified non- pressure ulcer stage Qualified Code(s): E11.621 - Type 2 diabetes mellitus with foot ulcer; L97.519 - Non-pressure chronic ulcer of other part of right foot with unspecified severity (3) Abscess Current Visit: Yes Status: Acute Culture taken at bedside. Aerobe and anaerobe cultures pending. Antibiotics to be tailored toward sensitivities. Subjective Principal diagnosis: cellulitis Interval history: Patient reports improvement in pain and swelling. MRI without evidence of deep abscess or septic arthritis. She denies n/v/f/c. Objective - Vital Signs Vital Signs: Vital Signs Temp Pulse Resp BP Pulse Ox 03/13/18 07:15 98.7 F 99 16 146/80 97 03/13/18 04:45 98.2 F 104 14 126/80 95 03/12/18 19:17 99.1 F 96 18 154/95 97 Intake and Output 03/12/18 03/13/18 03/13/18 23:59 07:59 15:59 Intake Total 2080 / 2080 340 / 340 410 / 410 Output Total 800 / 800 400 / 400 Balance 1280 / 1280 -60 / -60 410 / 410 Intake: IV Fluids 1600 / 1600 100 / 100 250 / 250 0.9 % Sodium Chloride 1,000 ML 1000 / 1000 @ 125 mls/hr IVC .Q8H [facility] Rx#: [id number] Heparin 25,000 UNIT/500 ML D5W 250 / 250 25,000 unit In 500 ml @ 14 UNIT /KG/HR 21.728 mls/hr IVC . Q23H1M [facility] Rx#:[id number] Zosyn 3.375 GM In 0.9 % Sodium 100 / 100 100 / 100 Chloride (Mini-Bag +) 100 ML @ 25 mls/hr IVPB Q8HR [facility] Rx#: [id number] Vancocin 1,250 MG In 0.9 % 250 / 250 250 / 250 Sodium Chloride 250 ML @ 167 mls/hr IVPB Q12H [facility] Rx#: [id number] Oral 480 / 480 240 / 240 160 / 160 Output: Urine 800 / 800 400 / 400 Other: Meal Dinner snack Breakfast Percent of Meal Consumed 100% 100% 85% # Bowel Movements 0 Weight 76.1 kg Blood Glucose* 267 320 Patient Weight 03/13/18 23:59 Weight 76.1 kg - Exam Exam: Vascular: DP and PT 1+ bilateral. Capillary refill less than 3 seconds all digits. Right forefoot warm to touch. Dermatology: Right plantar first metatarsal head and hyperkeratotic tissue with underlying ulceration approximately 1cm x 1cm x 1.5cm. No active drainage. Wound did not probe to bone. Erythema extending dorsally to level of midfoot, improved. Edema improved. Musculoskeletal: Tenderness with palpation right plantar first MPJ. Mild pain with range of motion of first MPJ. No crepitus noted. Neuro: Sensation diminished to forefoot. - Lab Result Diagrams: 03/13/18 00:53 03/13/18 00:53 Labs: Abnormal lab results RBC 3.74 M/mcL (3.82-4.97) L 03/13/18 00:53 Hgb 11.3 g/dL (11.5-15.4) L 03/13/18 00:53 Hct 32.3 % (35.3-44.9) L 03/13/18 00:53 MPV 9.3 fL (9.4-12.4) L 03/13/18 00:53 ESR 63 mm/hr (0-15) H 03/12/18 09:47 Heparin Anti-Xa, Unfract 0.18 IU/mL (0.30-0.70) L 03/12/18 14:12 Sodium 129 mEq/L (136-145) L 03/13/18 00:53 Creatinine 0.58 mg/dL (0.60-1.20) L 03/13/18 00:53 Glucose 323 mg/dL (70-105) H 03/13/18 00:53 POC Glucose 320 mg/dL (70-99) H 03/13/18 07:21 Hemoglobin A1c 13.2 % (-5.6) H 03/11/18 20:32 Calculated Osmolality 278 (280-300) L 03/13/18 00:53 Phosphorus 2.2 mg/dL (2.7-4.5) L 03/13/18 00:53 C-Reactive Protein 134 mg/L (Less than 10) H 03/12/18 09:47 Consult Discharge Plan - Plan Referrals: Heriberto Quach DO [Primary Care Provider] -
[2018-03-13] MEDS ORDERED: Magnesium Oxide 400 MG TABLET PO ONE (13:12)
--- NOTE | 2018-03-13 13:18 | Internal Med Progress Note ---
Hospitalist Progress Note - Encounter Date of Encounter: 03/13/18 Time of Encounter: 13:15 - Subjective Interval History: Patient is complaining of palpitation occasionally, her blood sugar continue to be above 200. No chest pain or shortness of breath - Exam Vitals: Temp Pulse Resp BP Pulse Ox 98.3 F 93 16 104/69 95 03/13/18 11:04 03/13/18 11:04 03/13/18 11:04 03/13/18 11:04 03/13/18 11:04 Exam: Patient no acute distress, alert and oriented 3 Cranial nerves II through XII intact Heart in regular rate and rhythm, no murmur or gallop Lungs clear to auscultation bilaterally without wheeze or rales or rhonchi Abdomen soft and nontender with normal bowel sounds present Bilateral lower extremities 1+ pitting edematous, Right foot warm and tender to palpation, dressing changes and wound check done by podiatry will differ that to podiatry team Motor is intact in all 5 digits and in the ankle, sensation is intact throughout the foot but diminished in the toes - Assessment and Plan (1) Chest pain Current Visit: Yes Status: Acute Code(s): R07.9 - Chest pain, unspecified SNOMED Code(s): 36199557 (2) Hyperglycemia due to type 2 diabetes mellitus Current Visit: Yes Status: Acute Code(s): E11.65 - Type 2 diabetes mellitus with hyperglycemia SNOMED Code(s): 745089024697495, 542447874057812 (3) HTN (hypertension) Current Visit: No Status: Chronic Code(s): I10 - Essential (primary) hypertension SNOMED Code(s): 39838172 (4) HLD (hyperlipidemia) Current Visit: No Status: Chronic Code(s): E78.5 - Hyperlipidemia, unspecified SNOMED Code(s): 60277338 (5) Diabetic foot ulcer Current Visit: Yes Status: Acute (6) DVT (deep venous thrombosis) Current Visit: Yes Status: Suspected (7) Hypophosphatemia Current Visit: Yes Status: Acute - Summary of Assessment and Plan Summary of Assessment and Plan: Will add pre-meal coverage, increase levimer. will rplace electrolytes , keep potassium more than 4 magnesium more than 2 - Time Spent with Patient Total time spent is greater than 50% in coordination of care (as documented) at patient's floor/unit and/or counseling patient: 25 - 35 minutes Internal Medicine: Result - Labs CBC & Chem 7: 03/13/18 00:53 03/13/18 00:53 Labs: Short CBC 03/13/18 Range/Units 00:53 WBC 8.5 (4.3-11.1) K/mcL Hgb 11.3 L (11.5-15.4) g/dL Hct 32.3 L (35.3-44.9) % Plt Count 216 (140-400) K/mcL Neutrophils # 6.6 (1.6-8.9) K/mcL BMP 03/13/18 00:53 Sodium 129 L Potassium 3.7 Chloride 99 Carbon Dioxide 23 BUN 7 Creatinine 0.58 L Glucose 323 H Calcium 8.6 - ABG Interpretation ABG results: PT/INR, D-dimer PT 10.8 Seconds (9.4-12.1) 03/12/18 01:30 - Impressions Impressions Foot MRI 03/12/18 12:00 IMPRESSION: Shallow appearing open wound/ulcer to the plantar forefoot at the level of the 1st MTP joint with underlying subcutaneous edema and adjacent skin thickening. No discrete focal fluid collection or sinus tract is identified. Relatively focal absence of enhancement to the underlying soft tissues on postcontrast sequences. No signal voids to suggest soft tissue gas. Findings concerning for cellulitis with possible phlegmon/devascularized tissue but without evidence for abscess. Bone marrow signal intensities are maintained. This excludes osteomyelitis. Moderately sized nonspecific joint effusion to the 1st MTP joint without findings suggestive for septic arthritis. Likely denervation changes to intrinsic musculature of the foot. D/ / 03/12/2018 16:29:42 Aquiles Bob MD / [facility] Interpreting Provider: Aquiles Bob MD Consult Discharge Plan - Plan Referrals: Heriberto Quach DO [Primary Care Provider] - (1) Chest pain Qualifiers: Chest pain type: unspecified Qualified Code(s): R07.9 - Chest pain, unspecified (2) Hyperglycemia due to type 2 diabetes mellitus Qualifiers: Diabetes mellitus nursing home insulin use: with nursing home use Qualified Code(s) : E11.65 - Type 2 diabetes mellitus with hyperglycemia; Z79.4 - emt intermediate ( current) use of insulin (3) HTN (hypertension) Qualifiers: Hypertension type: essential hypertension Qualified Code(s): I10 - Essential (primary) hypertension (4) HLD (hyperlipidemia) Qualifiers: Hyperlipidemia type: unspecified Qualified Code(s): E78.5 - Hyperlipidemia, unspecified (5) Diabetic foot ulcer Qualifiers: Diabetic foot ulcer location: unspecified part of foot Diabetes mellitus type : type 2 Laterality: right Non-pressure ulcer stage: unspecified non-pressure ulcer stage Qualified Code(s): E11.621 - Type 2 diabetes mellitus with foot ulcer; L97.519 - Non-pressure chronic ulcer of other part of right foot with unspecified severity (6) DVT (deep venous thrombosis) Qualifiers: DVT location: lower extremity Affected thrombotic vein of extremity: unspecified lower extremity distal vein Chronicity: unspecified Laterality: right Qualified Code(s): I82.4Z1 - Acute embolism and thrombosis of unspecified deep veins of right distal lower extremity
[2018-03-13] MEDS: Thiamine (B-1) 100 MG TABLET PO SCH (13:47)
[2018-03-13] MEDS: Acetaminophen 325 MG TABLET PO PRN (16:02)
[2018-03-14] MEDS ORDERED: OXYCODONE Oral CONC 10 MG/0.5 ML ORAL.SYG SL ONE (03:55)
[2018-03-14] MEDS: Ondansetron 4 MG/2 ML VIAL IVP PRN ×2 (04:20→10:34)
[2018-03-14] MEDS: *HR* Heparin 5,000 UNIT/ML VIAL SQ SCH ×3 (06:26→22:03)
[2018-03-14] MEDS: Piperacillin/Tazobactam 3.375 GM in 0.9 % Sodium Chloride Mini Bag 100 ML IVPB SCH ×2 (07:57→16:33)
[2018-03-14] MEDS: traMADol 50 MG TABLET PO PRN ×3 (08:00→22:48)
[2018-03-14] MEDS: Gabapentin 400 MG CAPSULE PO SCH ×3 (08:01→22:03)
[2018-03-14] MEDS: Insulin DETEMIR 100 UNIT/ML X5UNITS SQ SCH ×3 (08:01→22:03)
[2018-03-14] MEDS: Magnesium Oxide 400 MG TABLET PO SCH ×2 (08:01→22:03)
[2018-03-14] MEDS: Thiamine (B-1) 100 MG TABLET PO SCH (08:02)
[2018-03-14] MEDS: Insulin LISPRO 300 UNITS/3 ML VIAL SQ SCH ×7 (08:03→22:04)
--- NOTE | 2018-03-14 10:16 | Internal Med Progress Note ---
Hospitalist Progress Note - Encounter Date of Encounter: 03/14/18 Time of Encounter: 10:00 - Subjective Interval History: Patient stated overnight days she has episodes of nausea and a 2 episode of nonbilious nonbloody vomitus , patient denies any dysuria or hematuria, patient denies any cough, patient denies any chest pain or shortness of breath - Exam Vitals: Temp Pulse Resp BP Pulse Ox 98.6 F 93 16 151/88 94 03/14/18 08:00 03/14/18 08:00 03/14/18 08:00 03/14/18 08:00 03/14/18 08:00 Exam: Patient no acute distress, alert and oriented 3 Cranial nerves II through XII intact Heart in regular rate and rhythm, no murmur or gallop Lungs clear to auscultation bilaterally without wheeze or rales or rhonchi Abdomen soft epigastric tenderness with normal bowel sounds present Bilateral lower extremities 1+ pitting edematous, Right foot warm and tender to palpation, dressing changes and wound check done by podiatry will differ that to podiatry team Motor is intact in all 5 digits and in the ankle, sensation is intact throughout the foot but diminished in the toes - Assessment and Plan (1) Chest pain Current Visit: Yes Status: Acute Code(s): R07.9 - Chest pain, unspecified SNOMED Code(s): 34877426 (2) Hyperglycemia due to type 2 diabetes mellitus Current Visit: Yes Status: Acute Code(s): E11.65 - Type 2 diabetes mellitus with hyperglycemia SNOMED Code(s): 132415846636076, 783202856106383 (3) HTN (hypertension) Current Visit: No Status: Chronic Code(s): I10 - Essential (primary) hypertension SNOMED Code(s): 80806289 (4) HLD (hyperlipidemia) Current Visit: No Status: Chronic Code(s): E78.5 - Hyperlipidemia, unspecified SNOMED Code(s): 69342235 (5) Diabetic foot ulcer Current Visit: Yes Status: Acute (6) Hypophosphatemia Current Visit: Yes Status: Acute (7) Gastritis Current Visit: Yes Status: Acute (8) Constipation Current Visit: Yes Status: Acute - Summary of Assessment and Plan Summary of Assessment and Plan: Patient had episode of nausea vomiting, no no bowel movement for 3 days, increase laxative, bowel sounds positive, increase laxative, if not better will check a KUB, clinically no evidence of small bowel obstruction, add Protonix twice a day, increase it The documentation in the history of HPI and plan were at least partially created by [employer] recognition technology by Dr. Bridges. Errors in grammar, wording or other phrases may exist. If errors are found after the documentation signed, they will be addressed individually in the addendum section of this document when appropriate. For better control blood sugar. Close monitoring of electrolytes, close monitoring of H&H.Sharp debridement performed of hyperkeratotic tissue. Increased drainage from plantar foot ulcer which does probe deep to soft tissue. Continue current antibiotic, podiatry on board, awaiting final culture - Time Spent with Patient Total time spent is greater than 50% in coordination of care (as documented) at patient's floor/unit and/or counseling patient: 25 - 35 minutes Internal Medicine: Result - Labs CBC & Chem 7: 03/14/18 11:27 03/13/18 00:53 - ABG Interpretation ABG results: PT/INR, D-dimer PT 10.8 Seconds (9.4-12.1) 03/12/18 01:30 Consult Discharge Plan - Plan Referrals: Heriberto Quach DO [Primary Care Provider] - (1) Chest pain Qualifiers: Chest pain type: unspecified Qualified Code(s): R07.9 - Chest pain, unspecified (2) Hyperglycemia due to type 2 diabetes mellitus Qualifiers: Diabetes mellitus alf insulin use: with publishing specialist use Qualified Code(s) : E11.65 - Type 2 diabetes mellitus with hyperglycemia; Z79.4 - [facility] ( current) use of insulin (3) HTN (hypertension) Qualifiers: Hypertension type: essential hypertension Qualified Code(s): I10 - Essential (primary) hypertension (4) HLD (hyperlipidemia) Qualifiers: Hyperlipidemia type: unspecified Qualified Code(s): E78.5 - Hyperlipidemia, unspecified (5) Diabetic foot ulcer Qualifiers: Diabetic foot ulcer location: unspecified part of foot Diabetes mellitus type : type 2 Laterality: right Non-pressure ulcer stage: unspecified non-pressure ulcer stage Qualified Code(s): E11.621 - Type 2 diabetes mellitus with foot ulcer; L97.519 - Non-pressure chronic ulcer of other part of right foot with unspecified severity (7) Gastritis Qualifiers: Gastritis type: other gastritis Chronicity: acute Gastritis bleeding: without bleeding Qualified Code(s): K29.00 - Acute gastritis without bleeding (8) Constipation Qualifiers: Constipation type: chronic idiopathic constipation Qualified Code(s): K59.04 - Chronic idiopathic constipation
[2018-03-14] MEDS ORDERED: Metoclopramide 10 MG in 0.9 % Sodium Chloride 50 ML IVPB ONE (10:30)
[2018-03-14] MEDS: Sennosides/Docusate Sodium TABLET PO SCH ×2 (10:36→22:02)
[2018-03-14] MEDS: Acetaminophen 325 MG TABLET PO PRN (10:44)
--- NOTE | 2018-03-14 11:35 | Podiatry Progress Note ---
Date of Encounter: 03/14/18 Time of Encounter: 11:33 - Assessment and Plan (1) Cellulitis Current Visit: Yes Status: Acute Continue IV antibiotics. Patient advised to elevate and compression on the right foot. Qualifiers: Qualified Code(s): L03.115 - Cellulitis of right lower limb (2) Diabetic foot ulcer Current Visit: Yes Status: Acute X-rays and MRI reviewed. No evidence of soft tissue emphysema at this time. No evidence of deep abscess, osteomyelitis, or septic arthritis. No evidence of foreign body. Continue with local wound care and IV antibiotics. Qualifiers: Diabetic foot ulcer location: unspecified part of foot Diabetes mellitus type: type 2 Laterality: right Non-pressure ulcer stage: unspecified non- pressure ulcer stage Qualified Code(s): E11.621 - Type 2 diabetes mellitus with foot ulcer; L97.519 - Non-pressure chronic ulcer of other part of right foot with unspecified severity (3) Abscess Current Visit: Yes Status: Acute Sharp debridement performed of hyperkeratotic tissue. Increased drainage from plantar foot ulcer which does probe deep to soft tissue. Wound irrigated with normal saline then packed with iodoform and covered with dry dressing. If cellultis doesn't improve and she continues to have systemic symptoms, will consider formal I&D. Continue to follow cultures and will tailor antibiotics towards sensitivities. Subjective Principal diagnosis: cellulitis Interval history: Patient reports improvement in pain and swelling. MRI without evidence of deep abscess or septic arthritis. She reports nausea and vomiting overnight. Objective - Vital Signs Vital Signs: Vital Signs Temp Pulse Resp BP Pulse Ox 03/14/18 08:00 98.6 F 93 16 151/88 94 03/14/18 06:25 145/85 03/14/18 03:39 98.8 F 102 16 172/117 95 03/13/18 18:32 98.4 F 97 16 126/79 96 03/13/18 15:31 98.7 F 101 16 119/81 94 Intake and Output 03/13/18 03/14/18 03/14/18 23:59 07:59 15:59 Intake Total 470 / 470 400 / 400 310 / 310 Output Total 300 / 300 1000 / 1000 0 / 0 Balance 170 / 170 -600 / -600 310 / 310 Intake: IV Fluids 350 / 350 100 / 100 250 / 250 Zosyn 3.375 GM In 0.9 % Sodium 100 / 100 100 / 100 Chloride (Mini-Bag +) 100 ML @ 25 mls/hr IVPB Q8HR EILE[facility] Rx#: [id number] Vancocin 1,250 MG In 0.9 % 250 / 250 250 / 250 Sodium Chloride 250 ML @ 167 mls/hr IVPB Q12H EILEEN Rx#: [id number] Oral 120 / 120 300 / 300 60 / 60 Output: Urine 300 / 300 1000 / 1000 0 / 0 Other: Meal Dinner Percent of Meal Consumed 40% Weight 76 kg Blood Glucose* 285 277 Patient Weight 03/14/18 23:59 Weight 76 kg - Exam Exam: Vascular: DP and PT 1+ bilateral. Capillary refill less than 3 seconds all digits. Right forefoot warm to touch. Dermatology: Right plantar first metatarsal head and hyperkeratotic tissue with underlying ulceration approximately 1.5cm x 1.5cm x 1.5cm. Increased purulent drainage. Wound did not probe to bone. Erythema extending medially to level of midfoot, improved. Dorsal foot erythema improved. Edema improved. Musculoskeletal: Tenderness with palpation right plantar first MPJ. Mild pain with range of motion of first MPJ. No crepitus noted. Neuro: Sensation diminished to forefoot. - Lab Result Diagrams: 03/13/18 00:53 03/13/18 00:53 Labs: Abnormal lab results RBC 3.74 M/mcL (3.82-4.97) L 03/13/18 00:53 Hgb 11.3 g/dL (11.5-15.4) L 03/13/18 00:53 Hct 32.3 % (35.3-44.9) L 03/13/18 00:53 MPV 9.3 fL (9.4-12.4) L 03/13/18 00:53 ESR 63 mm/hr (0-15) H 03/12/18 09:47 Heparin Anti-Xa, Unfract 0.18 IU/mL (0.30-0.70) L 03/12/18 14:12 Sodium 129 mEq/L (136-145) L 03/13/18 00:53 Creatinine 0.58 mg/dL (0.60-1.20) L 03/13/18 00:53 Glucose 323 mg/dL (70-105) H 03/13/18 00:53 POC Glucose 277 mg/dL (70-99) H 03/14/18 08:03 Hemoglobin A1c 13.2 % (-5.6) H 03/11/18 20:32 Calculated Osmolality 278 (280-300) L 03/13/18 00:53 Phosphorus 2.2 mg/dL (2.7-4.5) L 03/13/18 00:53 C-Reactive Protein 134 mg/L (Less than 10) H 03/12/18 09:47 Microbiology, Last 48 Hours 03/12/18 11:00 Wound Culture - Final Right Foot Strep agalactiae - (Group B) Consult Discharge Plan - Plan Referrals: Heriberto Quach DO [Primary Care Provider] -
[2018-03-14 11:54] LABS: Basophils % 0.4 %; Eosinophils % 0.2 %; Hematocrit 37.8 % (35.3-44.9); Lymphocytes % 11.9 %; Mean Corpuscular HGB Conc 34.7 g/dL (31.6-35.5); Mean Corpuscular Volume 86.5 fL (83.0-100.0); Monocytes # 0.4 K/mcL (0.0-1.3); Monocytes % 4.7 %; Neutrophils # 6.6 K/mcL (1.6-8.9); Platelet Count 263 K/mcL (140-400); Red Blood Count 4.37 M/mcL (3.82-4.97); Red Cell Distribution Width 11.4 % (11.5-14.5); Segmented Neutrophils % 81.8 %
[2018-03-14 12:11] LABS: Hemoglobin 13.1 g/dL (11.5-15.4)
[2018-03-14 12:13] LABS: Magnesium 1.7 mg/dL (1.6-2.6); Phosphorous 2.9 mg/dL (2.7-4.5)
[2018-03-14] MEDS ORDERED: Lactulose Oral Soln 20 GM/30 ML UDC PO ONE (15:54)
[2018-03-15] MEDS: Piperacillin/Tazobactam 3.375 GM in 0.9 % Sodium Chloride Mini Bag 100 ML IVPB SCH ×2 (00:54→10:18)
[2018-03-15] MEDS: *HR* Heparin 5,000 UNIT/ML VIAL SQ SCH ×3 (05:03→21:56)
[2018-03-15 05:37] LABS: Basophils % 0.6 %; Eosinophils # 0.1 K/mcL (0.0-0.6); Eosinophils % 0.8 %; Hematocrit 34.1 % (35.3-44.9); Hemoglobin 11.7 g/dL (11.5-15.4); Immature Granulocytes % 0.6 % (0-4); Lymphocytes # 1.7 K/mcL (0.6-4.6); Lymphocytes % 25.2 %; Mean Corpuscular HGB Conc 34.3 g/dL (31.6-35.5); Mean Corpuscular Volume 87.4 fL (83.0-100.0); Mean Platelet Volume 9.7 fL (9.4-12.4); Monocytes # 0.4 K/mcL (0.0-1.3); Monocytes % 5.8 %; Neutrophils # 4.4 K/mcL (1.6-8.9); Platelet Count 278 K/mcL (140-400); Red Cell Distribution Width 11.7 % (11.5-14.5)
[2018-03-15 05:59] LABS: BUN/Creatinine Ratio 15 (6-26); Blood Urea Nitrogen 8 mg/dL (6-20); Calcium 8.9 mg/dL (8.6-10.3); Carbon Dioxide 28 mEq/L (23-29); Chloride 99 mEq/L (98-107); Glucose 315 mg/dL (70-105); Osmolality,Calculated 290 (280-300); Potassium 3.4 mEq/L (3.5-5.1); Sodium 135 mEq/L (136-145); eGFR For Non-African Americans > 60 (> 60)
[2018-03-15] MEDS: traMADol 50 MG TABLET PO PRN (07:38)
[2018-03-15] MEDS: Insulin LISPRO 300 UNITS/3 ML VIAL SQ SCH ×7 (07:57→21:56)
[2018-03-15] MEDS ORDERED: Aminoglycoside Consult 1 EACH MC ONE (08:00)
[2018-03-15] MEDS: Ondansetron 4 MG/2 ML VIAL IVP PRN (08:10)
[2018-03-15] MEDS: Acetaminophen 325 MG TABLET PO PRN ×2 (09:53→19:48)
[2018-03-15] MEDS: Gabapentin 400 MG CAPSULE PO SCH ×3 (09:53→19:49)
[2018-03-15] MEDS: Sennosides/Docusate Sodium TABLET PO SCH ×2 (09:53→19:47)
[2018-03-15] MEDS: Thiamine (B-1) 100 MG TABLET PO SCH (10:12)
[2018-03-15] MEDS: Magnesium Oxide 400 MG TABLET PO SCH ×2 (10:13→19:50)
[2018-03-15] MEDS: Insulin DETEMIR 100 UNIT/ML X5UNITS SQ SCH ×2 (10:13→20:10)
[2018-03-15] MEDS ORDERED: Ketorolac 15 MG/ML VIAL IM ONE (10:33)
[2018-03-15] MEDS ORDERED: Prochlorperazine 10 MG/2 ML VIAL IVP ONE (10:35)
--- NOTE | 2018-03-15 10:38 | Event Note ---
Date of Encounter: 03/15/18 Time of Encounter: 10:35 Informed by nurse that pt is complaining of FLORES 03/17. Pt had been given ultram and tylenol and states FLORES is still 9-03/17. Pt states FLORES is located in te back of her head and denies prior hx of FLORES or migraines. Vitals are stable and last hgb 11. Pt denies double or blurry vision or any other neurolgic deficits. She is sitting laying in bed with her head elevated and calm. Will check STAT non-contrast CT head and treat with FLORES cocktail, Toradol, compazine and benadryl and will reassess.
--- NOTE | 2018-03-15 12:40 | Podiatry Progress Note ---
Date of Encounter: 03/15/18 Time of Encounter: 12:39 - Assessment and Plan (1) Cellulitis Current Visit: Yes Status: Acute Continue IV antibiotics. Patient advised to elevate and compression on the right foot. Plan for I&D tomorrow. Qualifiers: Qualified Code(s): L03.90 - Cellulitis, unspecified (2) Diabetic foot ulcer Current Visit: Yes Status: Acute X-rays and MRI reviewed. No evidence of abscess, but given increased drainage, undermining of wound, and continued local and systemic symptoms of infection, I recommended surgical I&D of the wound. Risks, benefits, and expected post operative course was reviewed. She agreed with this plan. Plan for OR on Thursday , 03/16/2018. Please make patient NPO at midnight tonight. Wound irrigated today then packed with iodoform and dry dressing. Continue with local wound care and IV antibiotics for now. Qualifiers: Diabetic foot ulcer location: unspecified part of foot Diabetes mellitus type: type 2 Laterality: right Non-pressure ulcer stage: unspecified non- pressure ulcer stage Qualified Code(s): E11.621 - Type 2 diabetes mellitus with foot ulcer; L97.519 - Non-pressure chronic ulcer of other part of right foot with unspecified severity (3) Abscess Current Visit: Yes Status: Acute Plan for I&D tomorrow, 03/16/18. Subjective Principal diagnosis: cellulitis Interval history: Patient continues to have 1st MPJ pain and swelling that has not improved. MRI without evidence of deep abscess or septic arthritis. She reports continued headaches, nausea and vomiting overnight. Objective - Vital Signs Vital Signs: Vital Signs Temp Pulse Resp BP Pulse Ox 03/15/18 10:47 98.1 F 90 14 124/85 96 03/15/18 07:07 98.1 F 86 14 124/84 93 03/15/18 03:46 98.2 F 86 16 107/72 92 03/14/18 20:51 98.2 F 85 16 114/75 96 03/14/18 16:46 98 F 82 16 109/72 97 Intake and Output 03/14/18 03/15/18 03/15/18 23:59 07:59 15:59 Intake Total 340 / 340 590 / 590 0 / 0 Output Total 150 / 150 0 / 0 Balance 340 / 340 440 / 440 0 / 0 Intake: IV Fluids 100 / 100 350 / 350 Zosyn 3.375 GM In 0.9 % Sodium 100 / 100 100 / 100 Chloride (Mini-Bag +) 100 ML @ 25 mls/hr IVPB Q8HR [facility] Rx#: [id number] Vancocin 1,500 MG In 0.9 % 250 / 250 Sodium Chloride 250 ML @ 166.67 mls/hr IVPB Q12H EILE[facility] Rx#: [id number] Oral 240 / 240 240 / 240 0 / 0 Output: Urine 150 / 150 0 / 0 Other: Meal Dinner Breakfast Percent of Meal Consumed 100% 0% # Voids 2 Weight 76.5 kg Blood Glucose* 318 276 188 Patient Weight 03/15/18 23:59 Weight 76.5 kg - Exam Exam: Vascular: DP and PT 1+ bilateral. Capillary refill less than 3 seconds all digits. Right forefoot warm to touch. Dermatology: Right plantar first metatarsal head ulceration approximately 1.5cm x 1.5cm x 1.5cm. Continued mild purulent drainage. Wound did not probe to bone but there is significant undermining circumferential within the wound. Erythema extending medially to level of midfoot. Dorsal foot erythema improved. Edema improved. Musculoskeletal: Tenderness with palpation right plantar first MPJ. Mild pain with range of motion of first MPJ. No crepitus noted. Neuro: Sensation diminished to forefoot. - Lab Result Diagrams: 03/15/18 03:56 03/15/18 03:56 Labs: Abnormal lab results Hct 34.1 % (35.3-44.9) L 03/15/18 03:56 ESR 63 mm/hr (0-15) H 03/12/18 09:47 Heparin Anti-Xa, Unfract 0.18 IU/mL (0.30-0.70) L 03/12/18 14:12 Sodium 135 mEq/L (136-145) L 03/15/18 03:56 Potassium 3.4 mEq/L (3.5-5.1) L 03/15/18 03:56 Creatinine 0.54 mg/dL (0.60-1.20) L 03/15/18 03:56 Glucose 315 mg/dL (70-105) H 03/15/18 03:56 POC Glucose 276 mg/dL (70-99) H 03/15/18 07:10 Hemoglobin A1c 13.2 % (-5.6) H 03/11/18 20:32 C-Reactive Protein 134 mg/L (Less than 10) H 03/12/18 09:47 Consult Discharge Plan - Plan Referrals: Heriberto Quach DO [Primary Care Provider] -
--- NOTE | 2018-03-15 14:05 | Internal Med Progress Note ---
Hospitalist Progress Note - Encounter Date of Encounter: 03/15/18 Time of Encounter: 14:05 - Subjective Interval History: Pt reporting FLORES this am. She denies blurry vision but reports nausea without vomiting. She denies CP or SOB. She denies fever or chills. - Exam Vitals: Temp Pulse Resp BP Pulse Ox 98.1 F 90 14 124/85 96 03/15/18 10:47 03/15/18 10:47 03/15/18 10:47 03/15/18 10:47 03/15/18 10:47 Exam: . - Assessment and Plan (1) Diabetic foot ulcer Current Visit: Yes Status: Acute Assessment and Plan: Patient presented with worsening right foot wound Exam does not reveal open wound however there is most likely ulcer underneath chronic callus formation resulting in concurrent cellulitis She was tried on 2 days of clindamycin via PCP but had increasing redness, swelling, and pain On presentation she was tachycardic but vitals were otherwise within normal limits White blood cell count was within normal limits, does not meet SIRS criteria Received 1 L bolus normal saline, 1 dose of vancomycin, 1 dose Zosyn Blood Cultures drawn, patient has history of MRSA wound 01/05/18 Plan IVF normal saline 125ml/hr x 2L given COntinue with IV Vancomycin and Zosyn for now X ray and MRI neg for abcess. but given hx of drainage podiatry palning I and D for 03/16/18. Monitoring Blood Cultures Podiatry Consulting (2) Hyperglycemia due to type 2 diabetes mellitus Current Visit: Yes Status: Acute Assessment and Plan: Glucose found to be 512 on admission She states that she has been unable to get her home insulin because of an insurance change 10 units short-acting insulin were given in ED. Glucose recheck was in the low 200s Glucose uncontrolled Basal levemir HS increased to 30 units SQ BID. low dose SSI protocol with glucose checks ACHS Diabetic Diet Code(s): E11.65 - Type 2 diabetes mellitus with hyperglycemia SNOMED Code(s): 251469105772861, 792262404008804 (3) HTN (hypertension) Current Visit: No Status: Chronic Assessment and Plan: Lisinopril and HCTZ Code(s): I10 - Essential (primary) hypertension SNOMED Code(s): 88957719 (4) HLD (hyperlipidemia) Current Visit: No Status: Chronic Assessment and Plan: On home simvastatin Code(s): E78.5 - Hyperlipidemia, unspecified SNOMED Code(s): 39473919 (5) Hypophosphatemia Current Visit: Yes Status: Acute Assessment and Plan: Phos 2.2 repeat 2.9, corrected (6) Constipation Current Visit: Yes Status: Acute Assessment and Plan: Senna prn (7) Chest pain Current Visit: Yes Status: Acute Assessment and Plan: Most likely epigastric Patient does not have cardiac history EKG showed sinus rhythm, troponin <0.03 CP ruled out Code(s): R07.9 - Chest pain, unspecified SNOMED Code(s): 54070232 (8) Headache Current Visit: Yes Status: Acute Assessment and Plan: STAT noon-contrast head CT ordered and neg. Given FLORES cocktail. No further complaints at this time. DVT Prophylaxis: Heparin - Summary of Assessment and Plan Summary of Assessment and Plan: Ms. Santo is a 52 year old female with a past medical history of deep venous thrombosis, diabetes mellitus, GERD, hyperlipidemia, hypertension, pulmonary embolism. She presented to the ED on 03/11 with the chief complaint of worsening redness, pain, and swelling of a right foot wound. She states she visited her PCP 2 days ago and was started on clindamycin however it has not improved. She admits to additional chills, nausea, and intermittent chest pain. She denies fever or shortness of breath. She denies tobacco/acohol/drug use. In the ED she was slightly tachycardic but vital signs were otherwise within normal limits. White count was not elevated. Blood cultures were drawn and she was given 1L bolus normal saline, 1 dose IV Vancomycin and 1 dose IV Zosyn. - Time Spent with Patient Total time spent is greater than 50% in coordination of care (as documented) at patient's floor/unit and/or counseling patient: less than 15 minutes Plan of Care Discussed with: patient Internal Medicine: Result - Labs CBC & Chem 7: 03/15/18 03:56 03/15/18 03:56 Labs: Short CBC 03/15/18 Range/Units 03:56 WBC 6.6 (4.3-11.1) K/mcL Hgb 11.7 (11.5-15.4) g/dL Hct 34.1 L (35.3-44.9) % Plt Count 278 (140-400) K/mcL Neutrophils # 4.4 (1.6-8.9) K/mcL BMP 03/15/18 03:56 Sodium 135 L Potassium 3.4 L Chloride 99 Carbon Dioxide 28 BUN 8 Creatinine 0.54 L Glucose 315 H Calcium 8.9 - ABG Interpretation ABG results: PT/INR, D-dimer PT 10.8 Seconds (9.4-12.1) 03/12/18 01:30 - Impressions Impressions Head CT 03/15/18 10:32 IMPRESSION: No acute intracranial abnormality. D/ / 03/15/2018 11:32:41 Cinda Chambers MD / [facility] Interpreting Provider: Cinda Chambers MD Consult Discharge Plan - Plan Referrals: Heriberto Quach DO [Primary Care Provider] - (1) Diabetic foot ulcer Qualifiers: Diabetic foot ulcer location: unspecified part of foot Diabetes mellitus type : type 2 Laterality: right Non-pressure ulcer stage: unspecified non-pressure ulcer stage Qualified Code(s): E11.621 - Type 2 diabetes mellitus with foot ulcer; L97.519 - Non-pressure chronic ulcer of other part of right foot with unspecified severity (2) Hyperglycemia due to type 2 diabetes mellitus Qualifiers: Diabetes mellitus mcc insulin use: with manager terminal use Qualified Code(s) : E11.65 - Type 2 diabetes mellitus with hyperglycemia; Z79.4 - long-term ( current) use of insulin (3) HTN (hypertension) Qualifiers: Hypertension type: essential hypertension Qualified Code(s): I10 - Essential (primary) hypertension (4) HLD (hyperlipidemia) Qualifiers: Hyperlipidemia type: unspecified Qualified Code(s): E78.5 - Hyperlipidemia, unspecified (6) Constipation Qualifiers: Constipation type: chronic idiopathic constipation Qualified Code(s): K59.04 - Chronic idiopathic constipation (7) Chest pain Qualifiers: Chest pain type: unspecified Qualified Code(s): R07.9 - Chest pain, unspecified
--- NOTE | 2018-03-15 16:06 | Electrocardiograph Report ---
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
[2018-03-15] MEDS: Ampicillin 2 GM in 0.9 % Sodium Chloride Mini Bag 100 ML IVPB SCH ×2 (17:08→20:05)
--- NOTE | 2018-03-15 18:33 | Internal Med Progress Note ---
Hospitalist Progress Note - Encounter Date of Encounter: 03/15/18 - Exam Vitals: Temp Pulse Resp BP Pulse Ox 97.5 F L 78 16 101/68 94 03/15/18 14:45 03/15/18 14:45 03/15/18 14:45 03/15/18 14:45 03/15/18 14:45 - Assessment and Plan (1) Chest pain Current Visit: Yes Status: Acute Code(s): R07.9 - Chest pain, unspecified SNOMED Code(s): 52774030 (2) Hyperglycemia due to type 2 diabetes mellitus Current Visit: Yes Status: Acute Code(s): E11.65 - Type 2 diabetes mellitus with hyperglycemia SNOMED Code(s): 646310916495975, 593000778709122 (3) HTN (hypertension) Current Visit: No Status: Chronic Code(s): I10 - Essential (primary) hypertension SNOMED Code(s): 69278111 (4) HLD (hyperlipidemia) Current Visit: No Status: Chronic Code(s): E78.5 - Hyperlipidemia, unspecified SNOMED Code(s): 40790869 (5) Diabetic foot ulcer Current Visit: Yes Status: Acute (6) Hypophosphatemia Current Visit: Yes Status: Acute (7) Gastritis Current Visit: Yes Status: Acute (8) Constipation Current Visit: Yes Status: Acute - Time Spent with Patient Total time spent is greater than 50% in coordination of care (as documented) at patient's floor/unit and/or counseling patient: Internal Medicine: Result - Labs CBC & Chem 7: 03/15/18 03:56 03/15/18 03:56 Labs: Short CBC 03/15/18 Range/Units 03:56 WBC 6.6 (4.3-11.1) K/mcL Hgb 11.7 (11.5-15.4) g/dL Hct 34.1 L (35.3-44.9) % Plt Count 278 (140-400) K/mcL Neutrophils # 4.4 (1.6-8.9) K/mcL BMP 03/15/18 03:56 Sodium 135 L Potassium 3.4 L Chloride 99 Carbon Dioxide 28 BUN 8 Creatinine 0.54 L Glucose 315 H Calcium 8.9 - ABG Interpretation ABG results: PT/INR, D-dimer PT 10.8 Seconds (9.4-12.1) 03/12/18 01:30 - Impressions Impressions Head CT 03/15/18 10:32 IMPRESSION: No acute intracranial abnormality. D/ : / 03/15/2018 11:32:41 Cinda Chambers MD / [facility] Interpreting Provider: Cinda Chambers MD Consult Discharge Plan - Plan Referrals: Heriberto Quach DO [Primary Care Provider] - (1) Chest pain Qualifiers: Chest pain type: unspecified Qualified Code(s): R07.9 - Chest pain, unspecified (2) Hyperglycemia due to type 2 diabetes mellitus Qualifiers: Diabetes mellitus long term care phlebotomist insulin use: with group home use Qualified Code(s) : E11.65 - Type 2 diabetes mellitus with hyperglycemia; Z79.4 - nursing home ( current) use of insulin (3) HTN (hypertension) Qualifiers: Hypertension type: essential hypertension Qualified Code(s): I10 - Essential (primary) hypertension (4) HLD (hyperlipidemia) Qualifiers: Hyperlipidemia type: unspecified Qualified Code(s): E78.5 - Hyperlipidemia, unspecified (5) Diabetic foot ulcer Qualifiers: Diabetic foot ulcer location: unspecified part of foot Diabetes mellitus type : type 2 Laterality: right Non-pressure ulcer stage: unspecified non-pressure ulcer stage Qualified Code(s): E11.621 - Type 2 diabetes mellitus with foot ulcer; L97.519 - Non-pressure chronic ulcer of other part of right foot with unspecified severity (7) Gastritis Qualifiers: Gastritis type: other gastritis Chronicity: acute Gastritis bleeding: without bleeding Qualified Code(s): K29.00 - Acute gastritis without bleeding (8) Constipation Qualifiers: Constipation type: chronic idiopathic constipation Qualified Code(s): K59.04 - Chronic idiopathic constipation
[2018-03-16] MEDS: Ampicillin 2 GM in 0.9 % Sodium Chloride Mini Bag 100 ML IVPB SCH ×5 (01:05→20:32)
[2018-03-16] MEDS: *HR* Heparin 5,000 UNIT/ML VIAL SQ SCH ×3 (03:58→21:46)
[2018-03-16] MEDS ORDERED: Vancomycin 1,000 MG, 0.9 % Sodium Chloride 1,000 ML IR ONE ×2 (06:00→18:20)
[2018-03-16] MEDS: Magnesium Oxide 400 MG TABLET PO SCH (08:11)
[2018-03-16] MEDS: Thiamine (B-1) 100 MG TABLET PO SCH (08:11)
[2018-03-16] MEDS: Sennosides/Docusate Sodium TABLET PO SCH (08:11)
[2018-03-16] MEDS: Gabapentin 400 MG CAPSULE PO SCH ×2 (08:12→20:35)
[2018-03-16] MEDS: traMADol 50 MG TABLET PO PRN (08:18)
[2018-03-16] MEDS: Insulin LISPRO 300 UNITS/3 ML VIAL SQ SCH ×5 (08:22→21:55)
[2018-03-16 08:56] LABS: Basophils % 0.6 %; Eosinophils # 0.1 K/mcL (0.0-0.6); Hematocrit 36.9 % (35.3-44.9); Hemoglobin 12.5 g/dL (11.5-15.4); Lymphocytes # 1.7 K/mcL (0.6-4.6); Lymphocytes % 24.7 %; Mean Corpuscular HGB Conc 33.9 g/dL (31.6-35.5); Mean Corpuscular Volume 88.5 fL (83.0-100.0); Mean Platelet Volume 8.9 fL (9.4-12.4); Monocytes # 0.4 K/mcL (0.0-1.3); Monocytes % 6.4 %; Neutrophils # 4.5 K/mcL (1.6-8.9); Platelet Count 297 K/mcL (140-400); Red Blood Count 4.17 M/mcL (3.82-4.97); Red Cell Distribution Width 11.6 % (11.5-14.5); Segmented Neutrophils % 66.3 %
[2018-03-16 09:17] LABS: BUN/Creatinine Ratio 16 (6-26); Blood Urea Nitrogen 9 mg/dL (6-20); Carbon Dioxide 29 mEq/L (23-29); Chloride 101 mEq/L (98-107); Glucose 291 mg/dL (70-105); Osmolality,Calculated 293 (280-300); Potassium 3.9 mEq/L (3.5-5.1); Sodium 137 mEq/L (136-145); eGFR For Non-African Americans > 60 (> 60)
[2018-03-16] MEDS: Insulin DETEMIR 100 UNIT/ML X5UNITS SQ SCH ×2 (09:47→21:45)
[2018-03-16] MEDS ORDERED: Ibuprofen 600 MG TABLET PO PRN ×2 (10:56→18:20)
[2018-03-16] MEDS ORDERED: Bupivacaine/EPI 1:200k 0.25%PF 10 ML VIAL INFILT ONE (16:37)
[2018-03-16] MEDS ORDERED: Lidocaine -MPF 2% 2 ML VIAL ONE (16:40)
[2018-03-16] MEDS ORDERED: Propofol 500 MG/50 ML INFUS..BTL ONE (16:41)
[2018-03-16] MEDS ORDERED: *HR* FentaNYL (PF) 100 MCG/2 ML VIAL ONE (16:41)
[2018-03-16] MEDS ORDERED: *HR* Midazolam HCl 2 MG/2 ML VIAL ONE (16:41)
--- NOTE | 2018-03-16 16:42 | Anesthesia Evaluation PreOp ---
Date of Encounter: 03/16/18 Time of Encounter: 16:40 - Past History Planned Operation: Incision and Drainage Rt Foot Cardiac History: HTN, Hyperlipidemia, Other (DVT and PE has IVC Filter) Pulmonary History: Denies Any Significant HX FIELD ACCOUNT MANAGER History: Denies Any Significant HX Other Medical History: Diabetes Type II, Other (Arthritis Depression) Anesthesia History: No Prior Anesthetic Complications : No Alcohol Use: none Drug use: none Medications and Allergies Acetaminophen [Tylenol] 650 mg PO Q6HR PRN #0 tablet 01/10/16 [Rx] Bifidobacterium Infantis [Align] 4 mg PO DAILY 04/20/17 [History] Colestipol HCl [Colestid] 2 gm PO DAILY 04/20/17 [History] Dicyclomine [Bentyl] 20 mg PO QID 04/20/17 [History] Gabapentin [Neurontin] 1,600 mg PO HS 04/20/17 [History] Gabapentin [Neurontin] 800 mg PO BID 04/20/17 [History] Insulin ASPART [Novolog Flexpen] 30 unit SQ DAILY 04/20/17 [History] Insulin Glargine,Hum.rec.anlog [Lantus Solostar] 35 unit SQ HS 04/20/17 [History ] Lisinopril-HCTZ 10-12.5 [Prinzide 10-12.5] 1 tab PO DAILY 04/20/17 [History] Simvastatin [Zocor] 40 mg PO DAILY 04/20/17 [History] Clindamycin HCl [Cleocin HCl] 300 mg PO TID 03/11/18 [History] Amitriptyline [Elavil] 10 mg PO HS 03/12/18 [History] Citalopram [CeleXA] 20 mg PO DAILY 03/12/18 [History] 3 Allergy/AdvReac Type Severity Reaction Status Date / Time No Known Allergies Allergy Verified 04/20/17 08:52 - Meds/Allergy Pre-op Review Medications Reviewed: Yes Allergies Reviewed: Yes Beta Blockers on Current Med List: No Anesthesia Results - Labs 03/16/18 08:38 03/16/18 08:38 Laboratory Tests 08/01/16 03/16/18 03/16/18 10:49 08:38 08:38 Hgb 12.5 Hct 36.9 Plt Count 297 Sodium 137 Potassium 3.9 BUN 9 POC Creatinine 0.70 - Imaging EKG: report reviewed (SR) Anesthesia Exam O2 Sat Weight 76.1 kg O2 Sat by Pulse Oximetry 97 O2 Sat by Pulse Oximetry 98 O2 Sat by Pulse Oximetry 96 O2 Sat by Pulse Oximetry 97 O2 Sat by Pulse Oximetry 98 Vital Signs Temp Pulse Resp BP Pulse Ox 98.7 F 117 20 145/97 98 03/11/18 19:33 03/11/18 19:33 03/11/18 19:33 03/11/18 19:33 03/11/18 19:33 Height: 5'7 Weight: 167 lbs NPO (# of Hours): MN Pain Scale: 0 - HEENT Pupil (Motor): Pupils equal, EOMI Mallampati: III Teeth: Normal Oral Opening: Less than or equal to 3 - FIELD ACCOUNT MANAGER LOC: Oriented FIELD ACCOUNT MANAGER Motor: Normal RUE, Normal LUE, Normal RLE, Normal LLE, Normal Face FIELD ACCOUNT MANAGER Sensory: Normal: RUE, LUE, RLE, LLE, Face - Cardiac Rhythm: Regular Murmur: None JVD: No Carotid Bruit: No - Pulmonary Breath Sounds: bilateral Clear Respiratory Effort: Symmetrical Anesthesia Assess/Plan ASA Score: 3 (HTN DM) Modified Roosevelt Scale for Level of Consciousness: Cooperative, oriented, and tranquil Anesthetic Plan: MAC Monitoring Plan: Standard Monitors Recovery Plan: Other (Discussed MAC,possible GA, agrees to proceed)
[2018-03-16] MEDS ORDERED: *HR* OxyCODONE Immed Rel 5 MG TABLET PO PRN ×2 (17:13→18:20)
--- NOTE | 2018-03-16 17:37 | Internal Med Progress Note ---
Hospitalist Progress Note - Encounter Date of Encounter: 03/16/18 Time of Encounter: 11:00 - Subjective Interval History: Patient scheduled for incision and drainage podiatry today Antibiotics as been Descalated to ampicillin - Exam Vitals: Temp Pulse Resp BP Pulse Ox 98.6 F 81 12 126/87 97 03/16/18 14:19 03/16/18 14:19 03/16/18 14:19 03/16/18 14:19 03/16/18 14:19 Exam: Gen.: Nonacute distress, alert and oriented 3 ENT: Mucosal membranes moist Respiratory: Lungs are clear to auscultation bilaterally without any wheezing rhonchi or rales Cardiovascular: Normal S1 and S2 regular rate rhythm no murmurs rubs or gallops Abdomen: Soft, nontender and nondistended with positive bowel sounds Extremities: No lower extremity edema Skin: Normal color - Assessment and Plan (1) Diabetic foot ulcer Current Visit: Yes Status: Acute Assessment and Plan: Patient presented with worsening right foot wound Patient taken to the OR for incision and drainage by podiatry Antibiotic has been Descalated to ampicillin (2) Hyperglycemia due to type 2 diabetes mellitus Current Visit: Yes Status: Acute Assessment and Plan: Blood glucose continues to be uncontrolled so basal insulin was increased Continue to monitor Code(s): E11.65 - Type 2 diabetes mellitus with hyperglycemia SNOMED Code(s): 545425294333506, 179739496090802 (3) HTN (hypertension) Current Visit: No Status: Chronic Assessment and Plan: Controlled; continue Lisinopril and HCTZ Code(s): I10 - Essential (primary) hypertension SNOMED Code(s): 69698841 (4) HLD (hyperlipidemia) Current Visit: No Status: Chronic Assessment and Plan: Continue simvastatin Code(s): E78.5 - Hyperlipidemia, unspecified SNOMED Code(s): 30794958 (5) Hypophosphatemia Current Visit: Yes Status: Acute Assessment and Plan: Resolved with supplementation; continue to monitor (6) Headache Current Visit: Yes Status: Acute Assessment and Plan: CT of the head without acute findings Patient reports of not drinking caffeine as she did not as an outpatient so will resume caffeinated beverages (7) Chest pain Current Visit: Yes Status: Acute Assessment and Plan: Most likely epigastric Patient does not have cardiac history EKG showed sinus rhythm, troponin <0.03 CP ruled out Code(s): R07.9 - Chest pain, unspecified SNOMED Code(s): 32156145 DVT Prophylaxis: Heparin subcutaneous - Time Spent with Patient Total time spent is greater than 50% in coordination of care (as documented) at patient's floor/unit and/or counseling patient: Internal Medicine: Result - Labs CBC & Chem 7: 03/16/18 08:38 03/16/18 08:38 Labs: Short CBC 03/16/18 Range/Units 08:38 WBC 6.8 (4.3-11.1) K/mcL Hgb 12.5 (11.5-15.4) g/dL Hct 36.9 (35.3-44.9) % Plt Count 297 (140-400) K/mcL Neutrophils # 4.5 (1.6-8.9) K/mcL BMP 03/16/18 08:38 Sodium 137 Potassium 3.9 Chloride 101 Carbon Dioxide 29 BUN 9 Creatinine 0.55 L Glucose 291 H Calcium 9.0 - ABG Interpretation ABG results: PT/INR, D-dimer PT 10.8 Seconds (9.4-12.1) 03/12/18 01:30 Consult Discharge Plan - Plan Referrals: Heriberto Quach DO [Primary Care Provider] - (1) Diabetic foot ulcer Qualifiers: Diabetic foot ulcer location: unspecified part of foot Diabetes mellitus type : type 2 Laterality: right Non-pressure ulcer stage: unspecified non-pressure ulcer stage Qualified Code(s): E11.621 - Type 2 diabetes mellitus with foot ulcer; L97.519 - Non-pressure chronic ulcer of other part of right foot with unspecified severity (2) Hyperglycemia due to type 2 diabetes mellitus Qualifiers: Diabetes mellitus electrocardiograph repairer insulin use: with electrocardiograph repairer use Qualified Code(s) : E11.65 - Type 2 diabetes mellitus with hyperglycemia; 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
--- NOTE | 2018-03-16 17:53 | Anesthesia Evaluation Post Op ---
Date of Encounter: 03/16/18 Time of Encounter: 18:00 - Vital Signs Vital Signs: Vital Signs/O2 Sat/Glucose, Most Current Temp Pulse Resp BP Pulse Ox 03/16/18 14:19 98.6 F 81 12 126/87 97 - Lungs Lungs: Clear Ascult./Percussion - Airway Airway: Non-obstructed - Cardiovascular Regular Rate - Mental Status Mental Status: Alert & Oriented, Answers Appropriately - Pain Pain Scale: 0 - Nausea Vomiting Nausea Vomiting: Not Present - Hydration Hydration: NPO - Discharge PostOp Status: Transfer Patient to floor
--- NOTE | 2018-03-16 18:14 | Orthopedic Operative Note ---
Date of procedure: 03/16/18 Pre-op diagnosis: right foot diabetic infection, abscess right foot Post-op diagnosis: same Procedure: 03/16/18 18:02 1. Incision and drainage right foot abscess Complications: none Anesthesia: MAC, local Local Anesthetics: 1% Lidocaine HCL SubQ (cc), Other (0.5% marcaine plain) Surgeon: Fredis Moser Was there an assistant teaching professor present: No Estimated blood loss (cc): 5 Tourniquet Time (Minutes): 0 Specimen: soft tissue to micro, aerobe and anaerobe Condition: stable Disposition: floor Procedure in Detail: 03/16/18 18:16 INDICATIONS AND CONSENT Ruth Santo is a 52 year old female, type II diabetic who originally presented with right plantar foot callus with underlying abscess. She failed oral antibiotics as well as a course of IV antibiotics. She had worsening cellulitis and tracking of the plantar foot abscess. MRI showed no evidence of septic joint or sinus tract deep to the ulcer. Initial treatment included debridement of the callus tissue, irrigation, and packing of the wound with iodoform. However, the wound continued to drain purulent fluid and the cellulitis worsened. Surgical intervention was warranted for incision and drainage of the abscess. We discussed the above procedures in detail. This included a discussion on the indications, contraindications, and possible complications including but not limited to: worsening infection, non-healing wound, pain, swelling, bleeding, blood clots, heart complications, nerve injury , vascular injury, loss of limb, loss of life, need for prolonged antibiotics, and need for further surgery. We also reviewed the expected post operative course, including a discussion on the non-weightbearing status after this procedure. She related understanding of our discussion regarding this surgery. All questions were answered to her satisfaction, and a proper written informed consent was obtained, signed, and placed in the chart. No guarantees were given , stated or implied, as to the outcome of this procedure. PROCEDURE IN DETAIL The patient was seen in the pre-operative holding area by Anesthesia, where she was consented for MAC anesthesia with local block. The patient was brought back into the operating room placed on the bed in a supine position. A sign in was performed. A right ankle tourniquet was placed, but was not inflated at any point during the procedure. MAC was initiated by anesthesia team. The right lower extremity was scrubbed, prepped, and draped in the usual sterile technique. A timeout was then performed. The right first ray was injected with a total of 10 mL of 1% lidocaine plain and a Barrett block distribution. Right plantar foot wound measured 1.5cm x 1.5cm x 1.5cm prior to the incision and drainage. Attention was then directed to the right plantar foot where an ellipse incision was made to excise the plantar foot ulcer and a 3-1 orientation. Purulent drainage was expressed from the wound. Nonviable soft tissue from the plantar foot wound was sent to [facility]opa for aerobe and anaerobe cultures. A curved hemostat and 15 blade were used to remove any nonviable soft tissue from the plantar foot wound down to the level of deep fascia and plantar foot musculature. The debridement did not go deep to the level of bone. The plantar foot abscess tracked to a medial first metatarsophalangeal joint abscess which was then incised and non-viable soft tissue was debrided with a 15 blade down to bleeding, healthy tissue. The wounds were then irrigated with 3 L of normal saline with cysto tubing. A single retention suture was then placed at the central aspect of the plantar foot wound using 2-0 nylon. Both the plantar medial wounds were then packed with 1/4 inch iodoform. A total of 10 mL of 0.5% marcaine plain was injected to the medial right foot in a Barrett block technique. The wounds were then covered with Adaptic, Kerlix fluff, Kerlix roll, ABDs, and VERNA wrap. Following the procedure, proper hyperemic response was noted to the digits on the right foot. Capillary refill time of the toes on the right foot was also noted to be brisk at this time. A sign-out was performed. The patient tolerated anesthesia and the procedure well, and was transferred to PAC-U with vital signs stable and vascular status intact to the right lower extremity. Needle and sponge counts were correct X 2 at the end of the case. Dr. Fredis Moser was present, scrubbed, and participated in all vital aspects of the procedure. After a brief stay in PAC-U, the patient will be admitted back to the floor for continued IV antibiotics and wound care. Patient will likely require repeat incision and drainage with delayed primary closure. Will follow up repeat wound cultures and tailor antibiotics accordingly. 03/16/18 18:36 03/16/18 18:39
[2018-03-16] MEDS ORDERED: Dextrose Gel 15 GM/37.5 ML TUBE PO PRN ×2 (18:20)
[2018-03-16] MEDS ORDERED: Naloxone 0.4 MG/ML INJ IVP PRN (18:20)
[2018-03-16] MEDS ORDERED: *HR* Dextrose 50 % in Water (Syg) 50 ML SYRINGE IVP PRN (18:20)
[2018-03-16] MEDS ORDERED: Acetaminophen 325 MG TABLET PO PRN (18:20)
[2018-03-16] MEDS ORDERED: Ondansetron 4 MG/2 ML VIAL IVP PRN (18:20)
[2018-03-16] MEDS ORDERED: D5% in Water 1,000 ML IVC PRN (18:20)
[2018-03-16] MEDS ORDERED: Insulin DETEMIR 100 UNIT/ML X5UNITS SQ SCH (21:00)
[2018-03-17] MEDS: Sennosides/Docusate Sodium TABLET PO SCH ×2 (00:30→08:57)
[2018-03-17] MEDS: Magnesium Oxide 400 MG TABLET PO SCH ×3 (00:31→21:56)
[2018-03-17] MEDS: Ampicillin 2 GM in 0.9 % Sodium Chloride Mini Bag 100 ML IVPB SCH ×6 (01:00→21:55)
[2018-03-17] MEDS: *HR* Heparin 5,000 UNIT/ML VIAL SQ SCH ×3 (05:26→21:56)
[2018-03-17] MEDS: Insulin LISPRO 300 UNITS/3 ML VIAL SQ SCH ×7 (08:56→21:57)
[2018-03-17] MEDS: Thiamine (B-1) 100 MG TABLET PO SCH (08:58)
[2018-03-17] MEDS: Gabapentin 400 MG CAPSULE PO SCH ×3 (08:58→21:54)
[2018-03-17 08:59] LABS: Basophils % 0.4 %; Eosinophils # 0.1 K/mcL (0.0-0.6); Eosinophils % 0.9 %; Hematocrit 35.8 % (35.3-44.9); Hemoglobin 12.3 g/dL (11.5-15.4); Immature Granulocytes % 0.9 % (0-4); Lymphocytes # 1.7 K/mcL (0.6-4.6); Lymphocytes % 21.1 %; Mean Corpuscular HGB Conc 34.4 g/dL (31.6-35.5); Mean Corpuscular Hemoglobin 29.9 pg (28.0-33.3); Mean Corpuscular Volume 87.1 fL (83.0-100.0); Mean Platelet Volume 8.8 fL (9.4-12.4); Monocytes # 0.5 K/mcL (0.0-1.3); Monocytes % 6.3 %; Neutrophils # 5.6 K/mcL (1.6-8.9); Platelet Count 296 K/mcL (140-400); Red Blood Count 4.11 M/mcL (3.82-4.97); Red Cell Distribution Width 11.5 % (11.5-14.5); Segmented Neutrophils % 70.4 %
[2018-03-17] MEDS: Insulin DETEMIR 100 UNIT/ML X5UNITS SQ SCH (08:59)
[2018-03-17] MEDS: traMADol 50 MG TABLET PO PRN ×2 (09:02→17:05)
[2018-03-17 09:19] LABS: BUN/Creatinine Ratio 10 (6-26); Blood Urea Nitrogen 5 mg/dL (6-20); Calcium 9.2 mg/dL (8.6-10.3); Carbon Dioxide 27 mEq/L (23-29); Chloride 100 mEq/L (98-107); Glucose 286 mg/dL (70-105); Osmolality,Calculated 286 (280-300); Potassium 3.9 mEq/L (3.5-5.1); Sodium 134 mEq/L (136-145); eGFR For Non-African Americans > 60 (> 60)
--- NOTE | 2018-03-17 14:03 | Infectious Disease Consult ---
Date of Encounter: 03/17/18 Time of Encounter: 14:00 Assessment and Plan (1) Cellulitis Status: Acute Assessment and plan: Location: Right foot. Causative organism: Likely group B strep. Likely secondary to right foot diabetic foot ulcer. Failed outpatient oral antibiotics. ESR 63, CRP 134. X-ray of the right foot showed severe soft tissue swelling of the forefoot that has increased since previous imaging, but no abscess or ostium myelitis. MRI of the right foot showed no abscess or soft tissue gas, but there were findings concerning for phlegmon and a nonspecific joint effusion of the first MTP without septic arthritis. Podiatry was consulted. The patient underwent a bedside I&D on 03/14/18 that revealed probing to the deep soft tissue and increased drainage. She was taken to the operating room on 03/16/18 and underwent an I&D of the right foot abscess. Intraoperative cultures are pending. Gram stain is positive for few gram-positive cocci. Wound care and activity restrictions per the podiatry team. Continue ampicillin 2 g IV every 4 hours. Duration of treatment depends on the clinical picture. We will discuss the case with podiatry to determine a final plan for antibiotics IV versus by mouth. Monitor renal function and dose adjust antibiotics. Per the podiatry notes, the patient may require additional washout and return to the OR later this week. Qualifiers: Site of cellulitis: extremity Site of cellulitis of extremity: lower extremity Laterality: right Qualified Code(s): L03.115 - Cellulitis of right lower limb (2) Wound abscess Status: Acute Assessment and plan: Location: Right foot. Causative organism: Likely group B strep. Status post bedside I&D 03/14/18 by podiatry. Status post operative I&D of the right foot abscess 03/16/[address] Serrano. Operative note reviewed. Purulence noted Intra-Op. Intraoperative cultures are pending. Gram stain is positive for few gram-positive cocci. Wound care and activity restrictions per the podiatry team. Continue antibiotics as above. Duration of treatment depends on the clinical picture. (3) Diabetic foot ulcer Status: Acute Assessment and plan: Location: Right foot. Etiology unclear. The patient denies any known trauma or foreign body. Wound care per the podiatry team Qualifiers: Diabetic foot ulcer location: unspecified part of foot Diabetes mellitus type: type 2 Laterality: right Non-pressure ulcer stage: unspecified non- pressure ulcer stage Qualified Code(s): E11.621 - Type 2 diabetes mellitus with foot ulcer; L97.519 - Non-pressure chronic ulcer of other part of right foot with unspecified severity (4) Hyperglycemia due to type 2 diabetes mellitus Status: Chronic Assessment and plan: Hemoglobin A1c 13.2. Blood sugars continue to run high in the 203 100 range. Recommend aggressive glucose monitoring and control to promote wound healing and prevent reinfection. Management per the primary team. 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 Appears resolved. Qualifiers: Vomiting type: projectile vomiting Nausea presence: with nausea Qualified Code(s): R11.12 - Projectile vomiting (6) Headache Status: Acute Assessment and plan: Etiology unclear. CT of the head negative. Pain management per the primary team. Qualifiers: Headache type: unspecified Headache chronicity pattern: acute headache Intractability: not intractable Qualified Code(s): R51 - Headache Infectious Disease HPI - Data of Consult Patient: new to practice Consult date: 03/17/18 Requesting Physician: Xavier Fair Primary Care Provider: Heriberto Quach DO - Consult Narrative Reason for consult: Right foot infection History of present illness: Ms. Santo is a 52 year old female with a past medical history of diabetes, DVT , pulmonary embolism, GERD, hyperlipidemia, and hypertension. The patient was admitted to the hospital March 11 for hyperglycemia and cellulitis of the right foot. We are consulted March 17 for antibiotic recommendations for right foot infection. Briefly, the patient is a 52-year-old female with a past medical history as stated above. The patient presented to the emergency department with a one- week history of worsening redness and regression of a diabetic foot ulcer to the plantar aspect of the right foot. She had seen her PCP 2 days prior was placed on oral clindamycin, but had worsening of her symptoms so she presented to the emergency department. Upon arrival, the patient was afebrile. She was tachycardic, but was otherwise hemodynamically stable. Laboratory studies revealed a normal white blood cell count. Renal function was normal. She was noted to have hyponatremia as well as a markedly elevated blood glucose level at 512. Her A1c was 13.2. Blood cultures were obtained 2 sets. She was started empirically on Vanco and Zosyn and admitted to the hospital for further evaluation. Since admission, the patient has had one episode of low-grade fever with a MAXIMUM TEMPERATURE of 100. She has otherwise remained hemodynamically stable. Her white blood cell count has remained normal. She had a venous Doppler study that was negative for DVT of the bilateral lower extremities. She underwent an x-ray of the right foot that showed severe soft tissue swelling of the forefoot that had increased since previous imaging on 03/10/18. There was no abscess or ostial myelitis noted. Inflammatory markers were elevated with an ESR of 63 and a CRP of 134. Podiatry was consulted and recommended an MRI which showed no abscess or soft tissue gas. There was a possible phlegmon and a nonspecific joint effusion of the first MTP joint without evidence of septic arthritis. Superficial wound culture was obtained at that time and came back positive for group B strep. She was maintained on IV vancomycin and IV Zosyn until yesterday when she was D escalated to IV ampicillin. On 03/14/18 she underwent bedside I&D and the wound was noted to probe deep to the soft tissue and there is increased drainage. She was taken to the operating room on March 16 and underwent an I&D of the right foot abscess. Intraoperative cultures are pending, but the Gram stain shows few gram-positive cocci. Currently, the patient is on IV ampicillin. We have been asked to evaluate and make further recommendations. During my exam today, the patient endorses a history as stated above. She reports some subjective fevers and chills, but denies any rigors. She states overall she still felt very well. She denies any headache until being admitted to the hospital, and now she reports a persistent posterior head headache with associated nausea and vomiting and dry heaving. She denies any chest pain or shortness of breath or cough. She denies any abdominal pain or urinary complaints. She states her appetite is been okay. She reports that her blood sugars are poorly controlled at home. She states that she noticed an ulceration that appeared to be a wart to the plantar aspect of her right foot about a month ago they continue to increase in size and eventually developed an open sore that continued to worsen and eventually developed redness and pain. She took 2 days' worth of clindamycin, but had progression of her symptoms so she presented to the emergency department. He denies any foul odor or purulent drainage from the wound. She denies any oral thrush or additional skin lesions. The patient lives at home with her . She does have several animals, but denies any animal exposure to the affected area. She denies any tobacco, alcohol, illicit drug use. She denies any chronic infectious diseases. She denies any travel outside the [facility]. CC: Xavier Fair Past Med Surg Social Fam HX - Past Medical History Attestation: Yes The following information was validated with the patient. Source: patient, old records reviewed, nursing notes reviewed Medical history: arthritis, DVT, diabetes, GERD, hyperlipidemia, hypertension, pulmonary embolus Psychiatric history: depression - Past Surgical History Surgical History: , cholecystectomy, orthopedic, other, IVC filter Additional surgical history: ANNMARIE FILTER. uterine ablation. right achilles tendon repair. colonoscopy - Social History Smoking Status: Never smoker Smokeless Tobacco Status: No Alcohol use: none Drug use: none Current living situation: Home, With Family Activity Level: Independent ambulation Recent Out of Country Travel Within the Last 8 Weeks: No Exposure or Possible Exposure to Illness During Travel: No - Family History Mother Adopted: [place]: Amelia Age: 70 Living Status: Age at : 70 Cause of : cancer and diabetes Hx Family Cardiac Disorders: Yes (PACEMAKER, [place] X3 WITH STENTS, HTN) Hx Family Respiratory Disorders: Yes (COPD) Hx Family Cancer: Yes (stomach) Hx Family GI Disorders: (GERD) Hx Family Endocrine Disorder: Yes (diabetes) Father Adopted: [place]: Santhosh Age: 36 Family Member Ethnicity: Non- Living Status: Age at : 36 Cause of : etoh Hx Family Cardiac Disorders: No Hx Family Respiratory Disorders: No Hx Family Cancer: No Hx Family GI Disorders: No Hx Family Endocrine Disorder: Yes (cirrohsis) Hx Family Neuromuscular Disorders: No Hx Family Neurologic Disorders: No Hx Family HEENT Disorders: No Hx Family Autoimmune Disorders: No Sister Adopted: [place]: Marsha Age: 36 Living Status: Age at : 36 Cause of : sepsis and diabetes Hx Family Endocrine Disorder: Yes (diabetes) Infectious Disease-CN:Meds Acetaminophen [Tylenol] 650 mg PO Q6HR PRN #0 tablet 01/10/16 [Rx] Bifidobacterium Infantis [Align] 4 mg PO DAILY 04/20/17 [History] Colestipol HCl [Colestid] 2 gm PO DAILY 04/20/17 [History] Dicyclomine [Bentyl] 20 mg PO QID 04/20/17 [History] Gabapentin [Neurontin] 1,600 mg PO HS 04/20/17 [History] Gabapentin [Neurontin] 800 mg PO BID 04/20/17 [History] Insulin ASPART [Novolog Flexpen] 30 unit SQ DAILY 04/20/17 [History] Insulin Glargine,Hum.rec.anlog [Lantus Solostar] 35 unit SQ HS 04/20/17 [History ] Lisinopril-HCTZ 10-12.5 [Prinzide 10-12.5] 1 tab PO DAILY 04/20/17 [History] Simvastatin [Zocor] 40 mg PO DAILY 04/20/17 [History] Clindamycin HCl [Cleocin HCl] 300 mg PO TID 03/11/18 [History] Amitriptyline [Elavil] 10 mg PO HS 03/12/18 [History] Citalopram [CeleXA] 20 mg PO DAILY 03/12/18 [History] 3 Allergy/AdvReac Type Severity Reaction Status Date / Time No Known Allergies Allergy Verified 04/20/17 08:52 All systems: reviewed and no additional remarkable complaints except as stated Exam - Constitutional Vitals: Temp Pulse Resp BP Pulse Ox 98.2 F 91 15 162/114 99 03/17/18 11:10 03/17/18 11:10 03/17/18 11:10 03/17/18 11:10 03/17/18 11:10 General appearance: average body habitus, cooperative, no acute distress - Head Head exam: Present: atraumatic, normal inspection, normocephalic - Eye Eye exam: Present: EOMI, normal appearance, PERRL Pupils: Present: normal accommodation - ENT ENT exam: Present: mucous membranes moist - Neck Neck exam: Present: normal inspection - Respiratory Respiratory exam: Present: CTAB. Absent: rales, respiratory distress, rhonchi, wheezes - Cardiovascular Cardiovascular exam: Present: RRR, +S1, +S2 - GI/Abdominal GI/Abdominal exam: Present: normal bowel sounds, soft. Absent: distended, tenderness - Extremities Exam Extremities exam: Present: normal inspection, tenderness (Right foot). Absent: pedal edema Additional comments: Right foot dressing is clean, dry, and intact. - Neurological Exam Neurological exam: Present: alert, oriented X3, no focal deficits - Psychiatric Psychiatric exam: Present: normal affect, normal mood - Skin Skin exam: Present: dry, intact, normal color, warm Infectious Disease CN: Results - Labs CBC & Chem 7: 03/17/18 08:46 03/17/18 08:46 Cultures: Cultures 03/16/18 17:35 Surgical Biopsy Culture - Preliminary Right Foot Consult Discharge Plan - Plan Referrals: Fredis Moser DPM [Partnered Physician] - Heriberto Quach DO [Primary Care Provider] - - Attending Attestation I examined this patient and my medical decision-making was reviewed with the Resident Physician. I agree with the documented findings, disposition and treatment plan as described except to the extent set forth below. This is an addendum to original report dictated by Ofelia Pedro CNP. Please refer to Ofelia's consult for full detail. Patient is [id number] woman with past medical history mentioned below and diabetes mellitus that is poorly controlled. Topical. Diabetes mellitus has had her PCP Dr. 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 I recommended patient sees endocrinology at [place]. Patient came in apparently with right foot cellulitis and abscess. Patient had a bedside I&D by podiatry and the wound appeared to be deep. Patient was then taken to surgery yesterday and had I&D done. Intra-Op cultures were sent. MRI did not reveal any osteomyelitis. The only culture that we have is group B strep. Patient questions about the causative organism and I discussed that with her older the group B strep usually comes from the female pelvic region but without seen anywhere from meningitis to osteomyelitis and in between. Assessment and plan: Cellulitis with an abscess of the right foot causative organism group B strep. MRI not suggestive of osteomyelitis. Status post bedside I&D on 03/14/2018 and was taken to the OR for I&D on 2017. Patient doing clinically great. Does not appear toxic. Continues to be on ampicillin. On discharge probably switch the patient to oral antibiotics including Keflex I spoke with the patient at length regarding the importance of controlling her blood sugar and she is aware. Monitor labs and for drug toxicity.
--- NOTE | 2018-03-17 14:33 | Podiatry Progress Note ---
Date of Encounter: 03/17/18 Time of Encounter: 12:00 - Assessment and Plan (1) Diabetic foot ulcer Current Visit: Yes Status: Acute POD #1 I&D of right foot wound per Ehsan Dressing and packing removed, flushed with saline at bedside Appears to be healing as expected and slight improvement in edema and erythema noted to foot At this time we will monitor over next 2-3 days, if cellulitis continues to improve will plan for closure of surgical wound later this week. Discussed plan with patient and agrees BID dressing changes, flush with saline, pack with iodoform, 4x4 and kerlix bulk dressing with VERNA for compression Replaced at this time. Will need changed tonight Elevate at all times Minimal weight bearing to heel only Will need ortho wedge shoe at bedside for discharge ID has been consulted and pending recommendations- appreciated- current positive for Group B strep and being treated with IV ampicillin Intra op cultures are pending. Temp today 98.2 Qualifiers: Diabetic foot ulcer location: unspecified part of foot Diabetes mellitus type: type 2 Laterality: right Non-pressure ulcer stage: unspecified non- pressure ulcer stage Qualified Code(s): E11.621 - Type 2 diabetes mellitus with foot ulcer; L97.519 - Non-pressure chronic ulcer of other part of right foot with unspecified severity Subjective Principal diagnosis: cellulitis Interval history: Patient is POD #1 1. Incision and drainage right foot abscess per . Patient resting comfortably in bed. Dressing CDI- States pain is 4/10 and constant but tolerable. Patient denies any fevers, chills,n v. or fls. Patient denies calf pain or sob Objective - Vital Signs Vital Signs: Vital Signs Temp Pulse Resp BP Pulse Ox 03/17/18 11:10 98.2 F 91 15 162/114 99 03/17/18 06:53 98.4 F 82 15 135/84 98 03/17/18 04:14 98.4 F 82 14 132/78 96 03/17/18 00:05 98.5 F 84 14 129/86 97 03/16/18 21:05 98.3 F 84 145/93 03/16/18 20:05 98.3 F 83 142/92 03/16/18 19:05 97.6 F 85 150/89 03/16/18 18:35 97.8 F 76 14 137/88 93 Intake and Output 10/09/18 10/10/18 10/10/18 23:59 07:59 15:59 Intake Total 100 / 100 700 / 700 Output Total 1850 / 1850 Balance 95 / 95 -1150 / -1150 Intake: IV Fluids 100 / 100 100 / 100 Ampicillin 2 GM In 0.9 % Sodium 100 / 100 100 / 100 Chloride (Mini-Bag +) 100 ML @ 200 mls/hr IVPB Q4HR [facility] Rx#: [id number] Oral 600 / 600 Output: Urine 1849 / 0 Estimated Blood Loss Other: Meal NPO NPO Weight 77 kg Blood Glucose* 288 198 Patient Weight 03/17/18 23:59 Weight 77 kg - Exam Exam: Podiatry General Exam: General appearance: alert awake oriented X 3. Calm and pleasant, no acute distress.. Vascular: Pedal pulses +2/4 DP/PT , No evidence of cyanosis, pallor or rubor, Edema graded at 1+/4, Skin Temperature warm, No calf pain with manual compression. capillary refill time is immediate to digits. Neurologic: Sensation intact with light touch to foot. . Postop Exam: S/P Sutures intact to incision line to plantar aspect sub mt head #1 right, small opening to plantar and medial surgical wounds open for drainage and packing. scant serous drainage noted, mild erythema to periwound and medial aspect of foot, mild to dorsal aspect of foot. Majority of edema remains to dorsal aspect of foot, no streaking. . No ascending cellultiis. Appears to be improving. . - Lab Result Diagrams: 03/17/18 08:46 03/17/18 08:46 Labs: Abnormal lab results MPV 8.8 fL (9.4-12.4) L 03/17/18 08:46 ESR 63 mm/hr (0-15) H 03/12/18 09:47 Heparin Anti-Xa, Unfract 0.18 IU/mL (0.30-0.70) L 03/12/18 14:12 Sodium 134 mEq/L (136-145) L 03/17/18 08:46 BUN 5 mg/dL (6-20) L 03/17/18 08:46 Creatinine 0.49 mg/dL (0.60-1.20) L 03/17/18 08:46 Glucose 286 mg/dL (70-105) H 03/17/18 08:46 POC Glucose 218 mg/dL (70-99) H 03/16/18 20:49 Hemoglobin A1c 13.2 % (-5.6) H 03/11/18 20:32 C-Reactive Protein 134 mg/L (Less than 10) H 03/12/18 09:47 Microbiology, Last 48 Hours 03/16/18 17:35 Surgical Biopsy Culture - Preliminary Right Foot Consult Discharge Plan - Plan Referrals: Fredis Moser DPM [Partnered Physician] - Heriberto Quach DO [Primary Care Provider] -
--- NOTE | 2018-03-17 19:54 | Internal Med Progress Note ---
Hospitalist Progress Note - Encounter Date of Encounter: 03/17/18 Time of Encounter: 11:00 - Subjective Interval History: Podiatry with recommendations to monitor for the next 2 days with possible surgical intervention Antibiotics as been Descalated to IV ampicillin - Exam Vitals: Temp Pulse Resp BP Pulse Ox 98.1 F 83 15 116/76 97 03/17/18 18:58 03/17/18 18:58 03/17/18 18:58 03/17/18 18:58 03/17/18 18:58 Exam: Gen.: Nonacute distress, alert and oriented 3 ENT: Mucosal membranes moist Respiratory: Lungs are clear to auscultation bilaterally without any wheezing rhonchi or rales Cardiovascular: Normal S1 and S2 regular rate rhythm no murmurs rubs or gallops Abdomen: Soft, nontender and nondistended with positive bowel sounds Extremities: No lower extremity edema Skin: Normal color - Assessment and Plan (1) Diabetic foot ulcer Current Visit: Yes Status: Acute Assessment and Plan: Patient presented with worsening right foot wound Patient taken to the OR for incision and drainage by podiatry Antibiotic has been Descalated to ampicillin Podiatry with recommendations to monitor for the next couple days with possible additional surgical procedure (2) Hyperglycemia due to type 2 diabetes mellitus Current Visit: Yes Status: Acute Assessment and Plan: Blood glucose continues to be uncontrolled so basal insulin was increased Continue to monitor Code(s): E11.65 - Type 2 diabetes mellitus with hyperglycemia SNOMED Code(s): 442166646051842, 187370452912118 (3) HTN (hypertension) Current Visit: No Status: Chronic Assessment and Plan: Controlled; continue Lisinopril and HCTZ Code(s): I10 - Essential (primary) hypertension SNOMED Code(s): 88464839 (4) HLD (hyperlipidemia) Current Visit: No Status: Chronic Assessment and Plan: Continue simvastatin Code(s): E78.5 - Hyperlipidemia, unspecified SNOMED Code(s): 12253011 - Time Spent with Patient Total time spent is greater than 50% in coordination of care (as documented) at patient's floor/unit and/or counseling patient: Internal Medicine: Result - Labs CBC & Chem 7: 03/17/18 08:46 03/17/18 08:46 Labs: Short CBC 03/17/18 Range/Units 08:46 WBC 8.0 (4.3-11.1) K/mcL Hgb 12.3 (11.5-15.4) g/dL Hct 35.8 (35.3-44.9) % Plt Count 296 (140-400) K/mcL Neutrophils # 5.6 (1.6-8.9) K/mcL BMP 03/17/18 08:46 Sodium 134 L Potassium 3.9 Chloride 100 Carbon Dioxide 27 BUN 5 L Creatinine 0.49 L Glucose 286 H Calcium 9.2 - ABG Interpretation ABG results: PT/INR, D-dimer PT 10.8 Seconds (9.4-12.1) 03/12/18 01:30 Consult Discharge Plan - Plan Referrals: Fredis Moser DPM [Partnered Physician] - Heriberto Quach DO [Primary Care Provider] - (1) Diabetic foot ulcer Qualifiers: Diabetic foot ulcer location: unspecified part of foot Diabetes mellitus type : type 2 Laterality: right Non-pressure ulcer stage: unspecified non-pressure ulcer stage Qualified Code(s): E11.621 - Type 2 diabetes mellitus with foot ulcer; L97.519 - Non-pressure chronic ulcer of other part of right foot with unspecified severity (2) Hyperglycemia due to type 2 diabetes mellitus Qualifiers: Diabetes mellitus mcc insulin use: with terminal superintendent use Qualified Code(s) : E11.65 - Type 2 diabetes mellitus with hyperglycemia; Z79.4 - long term care social worker ( current) use of insulin (3) HTN (hypertension) Qualifiers: Hypertension type: essential hypertension Qualified Code(s): I10 - Essential (primary) hypertension (4) HLD (hyperlipidemia) Qualifiers: Hyperlipidemia type: unspecified Qualified Code(s): E78.5 - Hyperlipidemia, unspecified
[2018-03-18] MEDS: Sennosides/Docusate Sodium TABLET PO SCH ×3 (00:11→21:10)
[2018-03-18] MEDS: Insulin DETEMIR 100 UNIT/ML X5UNITS SQ SCH ×3 (00:11→22:31)
[2018-03-18] MEDS: *HR* Heparin 5,000 UNIT/ML VIAL SQ SCH ×3 (06:02→21:12)
[2018-03-18] MEDS: Ampicillin 2 GM in 0.9 % Sodium Chloride Mini Bag 100 ML IVPB SCH ×6 (07:49→21:07)
[2018-03-18] MEDS: Insulin LISPRO 300 UNITS/3 ML VIAL SQ SCH ×7 (07:53→22:31)
[2018-03-18] MEDS: Magnesium Oxide 400 MG TABLET PO SCH ×2 (07:54→21:10)
[2018-03-18] MEDS: Gabapentin 400 MG CAPSULE PO SCH ×3 (07:54→21:09)
[2018-03-18] MEDS: Thiamine (B-1) 100 MG TABLET PO SCH (07:55)
--- NOTE | 2018-03-18 09:58 | Internal Med Progress Note ---
Hospitalist Progress Note - Encounter Date of Encounter: 03/18/18 Time of Encounter: 11:00 - Subjective Interval History: Podiatry with recommendations to monitor for the next several days for improvement in edema/cellulitis to determine plan for closer of surgical wound later in the week Continue IV antibiotics per ID recommendations - Exam Vitals: Temp Pulse Resp BP Pulse Ox 97.6 F 73 18 115/74 97 03/18/18 07:12 03/18/18 07:12 03/18/18 07:12 03/18/18 07:12 03/18/18 07:12 Exam: Gen.: Nonacute distress, alert and oriented 3 ENT: Mucosal membranes moist Respiratory: Lungs are clear to auscultation bilaterally without any wheezing rhonchi or rales Cardiovascular: Normal S1 and S2 regular rate rhythm no murmurs rubs or gallops Abdomen: Soft, nontender and nondistended with positive bowel sounds Extremities: No lower extremity edema Skin: Normal color - Assessment and Plan (1) Diabetic foot ulcer Current Visit: Yes Status: Acute Assessment and Plan: Patient presented with worsening right foot wound Status post incision and drainage by podiatry Podiatry with recommendations to monitor for the next several days for improvement in edema/cellulitis to determine plan for closer of surgical wound later in the week Continue IV antibiotics per ID recommendations (2) Hyperglycemia due to type 2 diabetes mellitus Current Visit: Yes Status: Acute Assessment and Plan: Continue basal insulin and coverage with sliding-scale insulin Code(s): E11.65 - Type 2 diabetes mellitus with hyperglycemia SNOMED Code(s): 944054675027996, 560681531847671 (3) HTN (hypertension) Current Visit: No Status: Chronic Assessment and Plan: Controlled; continue Lisinopril and HCTZ Code(s): I10 - Essential (primary) hypertension SNOMED Code(s): 63139228 (4) HLD (hyperlipidemia) Current Visit: No Status: Chronic Assessment and Plan: Continue simvastatin Code(s): E78.5 - Hyperlipidemia, unspecified SNOMED Code(s): 83177774 DVT Prophylaxis: Heparin subcutaneous - Time Spent with Patient Total time spent is greater than 50% in coordination of care (as documented) at patient's floor/unit and/or counseling patient: Internal Medicine: Result - Labs CBC & Chem 7: 03/18/18 10:06 03/18/18 10:06 - ABG Interpretation ABG results: PT/INR, D-dimer PT 10.8 Seconds (9.4-12.1) 03/12/18 01:30 Consult Discharge Plan - Plan Referrals: Fredis Moser DPM [Partnered Physician] - Heriberto Quach DO [Primary Care Provider] - (1) Diabetic foot ulcer Qualifiers: Diabetic foot ulcer location: unspecified part of foot Diabetes mellitus type : type 2 Laterality: right Non-pressure ulcer stage: unspecified non-pressure ulcer stage Qualified Code(s): E11.621 - Type 2 diabetes mellitus with foot ulcer; L97.519 - Non-pressure chronic ulcer of other part of right foot with unspecified severity (2) Hyperglycemia due to type 2 diabetes mellitus Qualifiers: Diabetes mellitus termination clerk insulin use: with mcc use Qualified Code(s) : E11.65 - Type 2 diabetes mellitus with hyperglycemia; Z79.4 - termination clerk ( current) use of insulin (3) HTN (hypertension) Qualifiers: Hypertension type: essential hypertension Qualified Code(s): I10 - Essential (primary) hypertension (4) HLD (hyperlipidemia) Qualifiers: Hyperlipidemia type: unspecified Qualified Code(s): E78.5 - Hyperlipidemia, unspecified
--- NOTE | 2018-03-18 10:25 | Podiatry Progress Note ---
Date of Encounter: 03/18/18 Time of Encounter: 10:23 - Assessment and Plan (1) Cellulitis Current Visit: Yes Status: Acute Continue IV antibiotics. Patient advised to elevate and compression on the right foot. Plan for repeat I&D with delayed primary closure tomorrow. Qualifiers: Site of cellulitis: extremity Site of cellulitis of extremity: lower extremity Laterality: right Qualified Code(s): L03.115 - Cellulitis of right lower limb (2) Diabetic foot ulcer Current Visit: Yes Status: Acute Infection improving. Cellulitis has improved and wound with less drainage today. Will plan for I&D with delayed primary closure tomorrow. Patient can discharge when medically stable following the procedure, hopefully over the weekend. Patient can discharge with PO antibiotics, but will collaborate with ID for final recommendations. Please make patient NPO at midnight. Qualifiers: Diabetic foot ulcer location: unspecified part of foot Diabetes mellitus type: type 2 Laterality: right Non-pressure ulcer stage: unspecified non- pressure ulcer stage Qualified Code(s): E11.621 - Type 2 diabetes mellitus with foot ulcer; L97.519 - Non-pressure chronic ulcer of other part of right foot with unspecified severity (3) Abscess Current Visit: Yes Status: Acute Plan for I&D with delayed primary closure tomorrow, 03/19/18. Subjective Principal diagnosis: cellulitis Interval history: Patient progressing well POD 2 s/p right foot I&D. Denies n/v/f/c. WBC normal. Plan for I&D with delayed primary closure right foot tomorrow (03/19/18). Objective - Vital Signs Vital Signs: Vital Signs Temp Pulse Resp BP Pulse Ox 03/18/18 07:12 97.6 F 73 18 115/74 97 03/18/18 04:22 97.5 F L 79 14 118/73 97 03/17/18 18:58 98.1 F 83 15 116/76 97 03/17/18 14:56 98.1 F 85 15 116/78 97 03/17/18 11:10 98.2 F 91 15 162/114 99 Intake and Output 03/17/18 03/18/18 03/18/18 23:59 07:59 15:59 Intake Total 340 / 340 100 / 100 100 / 100 Output Total 0 / 0 300 / 300 Balance 340 / 340 -200 / -200 100 / 100 Intake: IV Fluids 100 / 100 100 / 100 100 / 100 Ampicillin 2 GM In 0.9 % Sodium 100 / 100 100 / 100 100 / 100 Chloride (Mini-Bag +) 100 ML @ 200 mls/hr IVPB Q4HR [facility] Rx#: [id number] Oral 240 / 240 Output: Urine 0 / 0 300 / 300 Other: Meal Dinner Percent of Meal Consumed 100% Weight 77.8 kg Blood Glucose* 230 238 Patient Weight 03/18/18 23:59 Weight 77.8 kg - Exam Exam: Right foot dressing clean, dry, intact. Right plantar and medial foot surgical wounds without active drainage. Cellulitis improved. Decreased depth and tracking of wound. Capillary refill less than 3 seconds to right 3rd toe. - Lab Result Diagrams: 03/17/18 08:46 03/17/18 08:46 Labs: Abnormal lab results MPV 8.8 fL (9.4-12.4) L 03/17/18 08:46 ESR 63 mm/hr (0-15) H 03/12/18 09:47 Heparin Anti-Xa, Unfract 0.18 IU/mL (0.30-0.70) L 03/12/18 14:12 Sodium 134 mEq/L (136-145) L 03/17/18 08:46 BUN 5 mg/dL (6-20) L 03/17/18 08:46 Creatinine 0.49 mg/dL (0.60-1.20) L 03/17/18 08:46 Glucose 286 mg/dL (70-105) H 03/17/18 08:46 POC Glucose 238 mg/dL (70-99) H 03/18/18 07:13 Hemoglobin A1c 13.2 % (-5.6) H 03/11/18 20:32 C-Reactive Protein 134 mg/L (Less than 10) H 03/12/18 09:47 Microbiology, Last 48 Hours 03/16/18 17:35 Surgical Biopsy Culture - Preliminary Right Foot Strep agalactiae - (Group B) Consult Discharge Plan - Plan Referrals: Fredis Moser, JOEYM [Partnered Physician] - Heriberto Quach DO [Primary Care Provider] -
[2018-03-18 10:50] LABS: Basophils % 0.7 %; Eosinophils # 0.1 K/mcL (0.0-0.6); Eosinophils % 1.6 %; Hematocrit 37.9 % (35.3-44.9); Hemoglobin 12.9 g/dL (11.5-15.4); Immature Granulocytes % 1.6 % (0-4); Lymphocytes # 1.5 K/mcL (0.6-4.6); Lymphocytes % 25.6 %; Mean Corpuscular Hemoglobin 29.9 pg (28.0-33.3); Mean Corpuscular Volume 87.7 fL (83.0-100.0); Mean Platelet Volume 8.8 fL (9.4-12.4); Monocytes # 0.4 K/mcL (0.0-1.3); Monocytes % 6.6 %; Neutrophils # 3.7 K/mcL (1.6-8.9); Platelet Count 309 K/mcL (140-400); Red Blood Count 4.32 M/mcL (3.82-4.97); Red Cell Distribution Width 11.7 % (11.5-14.5); Segmented Neutrophils % 63.9 %
[2018-03-18 10:59] LABS: BUN/Creatinine Ratio 11 (6-26); Blood Urea Nitrogen 6 mg/dL (6-20); Calcium 9.3 mg/dL (8.6-10.3); Carbon Dioxide 30 mEq/L (23-29); Chloride 100 mEq/L (98-107); Glucose 283 mg/dL (70-105); Osmolality,Calculated 292 (280-300); Sodium 137 mEq/L (136-145); eGFR For Non-African Americans > 60 (> 60)
--- NOTE | 2018-03-18 15:36 | Infectious Disease Progress No ---
Date of Encounter: 03/18/18 Time of Encounter: 15:34 - Assessment and Plan (1) Cellulitis Current Visit: Yes Status: Acute Location: Right foot. Causative organism: Likely group B strep. Likely secondary to right foot diabetic foot ulcer. Failed outpatient oral antibiotics. ESR 63, CRP 134. X-ray of the right foot showed severe soft tissue swelling of the forefoot that has increased since previous imaging, but no abscess or ostium myelitis. MRI of the right foot showed no abscess or soft tissue gas, but there were findings concerning for phlegmon and a nonspecific joint effusion of the first MTP without septic arthritis. Podiatry was consulted. The patient underwent a bedside I&D on 03/14/18 that revealed probing to the deep soft tissue and increased drainage. She was taken to the operating room on 03/16/18 and underwent an I&D of the right foot abscess. Intraoperative cultures are positive for GBS as well. Wound care and activity restrictions per the podiatry team. Continue ampicillin 2 g IV every 4 hours. Duration of treatment depends on the clinical picture. Discussed with Dr. Moser. Will plan on two weeks of PO antibiotics initially if the patient is agreeable and follow how she does clinically and her inflammatory markers and base further antibiotics on that. Monitor renal function and dose adjust antibiotics. Per the podiatry notes, the patient may require additional washout and return to the OR tomorrow. Qualifiers: Site of cellulitis: extremity Site of cellulitis of extremity: lower extremity Laterality: right Qualified Code(s): L03.115 - Cellulitis of right lower limb (2) Wound abscess Current Visit: No Status: Acute Location: Right foot. Causative organism: Likely group B strep. Status post bedside I&D 03/14/18 by podiatry. Status post operative I&D of the right foot abscess 03/16/[address] Serrano. Operative note reviewed. Purulence noted Intra-Op. Intraoperative cultures are positive for GBS. Wound care and activity restrictions per the podiatry team. Continue antibiotics as above. Duration of treatment depends on the clinical picture. (3) Diabetic foot ulcer Current Visit: Yes Status: Acute Location: Right foot. Etiology unclear. The patient denies any known trauma or foreign body. Wound care per the podiatry team Qualifiers: Diabetic foot ulcer location: unspecified part of foot Diabetes mellitus type: type 2 Laterality: right Non-pressure ulcer stage: unspecified non- pressure ulcer stage Qualified Code(s): E11.621 - Type 2 diabetes mellitus with foot ulcer; L97.519 - Non-pressure chronic ulcer of other part of right foot with unspecified severity (4) Hyperglycemia due to type 2 diabetes mellitus Current Visit: No Status: Chronic Hemoglobin A1c 13.2. Blood sugars continue to run high in the 200-300 range. Recommend aggressive glucose monitoring and control to promote wound healing and prevent reinfection. Management per the primary team. Qualifiers: Diabetes mellitus bed bug exterminator insulin use: with bed bug exterminator use Qualified Code( s): E11.65 - Type 2 diabetes mellitus with hyperglycemia; Z79.4 - detention ( current) use of insulin (5) Headache Current Visit: Yes Status: Acute Etiology unclear. CT of the head negative. Pain management per the primary team. Qualifiers: Headache type: unspecified Headache chronicity pattern: acute headache Intractability: not intractable Qualified Code(s): R51 - Headache - Subjective Interval history: Patient seen and examined. No acute events noted overnight. Patient states that overall she feels okay. Continues to have persistent posterior headache. Denies nausea, vomiting, or diarrhea. Denies abdominal pain or urinary complaints. Denies pain at the surgical site. States appetite is okay. Denies chest pain, shortness of breath, or cough. Denies oral thrush or new skin lesions. Infect Dis PN-Objective Data - Labs CBC & Chem 7: 03/19/18 09:36 03/19/18 09:36 Labs: Laboratory Results - last 24 hr 03/17/18 03/17/18 03/17/18 07:03 11:16 16:17 WBC RBC Hgb Hct MCV MCH MCHC RDW Plt Count MPV Immature Gran % Seg Neutrophils % Lymphocytes % Monocytes % Eosinophils % Basophils % Neutrophils # Lymphocytes # Monocytes # Eosinophils # Basophils # Sodium Potassium Chloride Carbon Dioxide BUN Creatinine Est GFR ( Amer) Est GFR (Non-Af Amer) BUN/Creatinine Ratio Glucose POC Glucose 288 H 198 H 178 H Calculated Osmolality Calcium 03/17/18 03/18/18 03/18/18 20:17 07:13 10:06 WBC 5.7 RBC 4.32 Hgb 12.9 Hct 37.9 MCV 87.7 MCH 29.9 MCHC 34.0 RDW 11.7 Plt Count 309 MPV 8.8 L Immature Gran % 1.6 Seg Neutrophils % 63.9 Lymphocytes % 25.6 Monocytes % 6.6 Eosinophils % 1.6 Basophils % 0.7 Neutrophils # 3.7 Lymphocytes # 1.5 Monocytes # 0.4 Eosinophils # 0.1 Basophils # 0.0 Sodium Potassium Chloride Carbon Dioxide BUN Creatinine Est GFR ( Amer) Est GFR (Non-Af Amer) BUN/Creatinine Ratio Glucose POC Glucose 230 H 238 H Calculated Osmolality Calcium 03/18/18 03/18/18 10:06 11:17 WBC RBC Hgb Hct MCV MCH MCHC RDW Plt Count MPV Immature Gran % Seg Neutrophils % Lymphocytes % Monocytes % Eosinophils % Basophils % Neutrophils # Lymphocytes # Monocytes # Eosinophils # Basophils # Sodium 137 Potassium 4.0 Chloride 100 Carbon Dioxide 30 H BUN 6 Creatinine 0.55 L Est GFR ( Amer) > 60 Est GFR (Non-Af Amer) > 60 BUN/Creatinine Ratio 11 Glucose 283 H POC Glucose 251 H Calculated Osmolality 292 Calcium 9.3 Cultures: Cultures 03/16/18 17:35 Surgical Biopsy Culture - Preliminary Right Foot Strep agalactiae - (Group B) Exam - Constitutional Vitals: Temp Pulse Resp BP Pulse Ox 98.1 F 102 18 136/93 99 03/18/18 13:30 03/18/18 13:30 03/18/18 13:30 03/18/18 13:30 03/18/18 13:30 General appearance: average body habitus, cooperative, no acute distress - Head Head exam: Present: atraumatic, normal inspection, normocephalic - Eye Eye exam: Present: EOMI, normal appearance, PERRL Pupils: Present: normal accommodation - ENT ENT exam: Present: mucous membranes moist - Neck Neck exam: Present: normal inspection - Respiratory Respiratory exam: Present: CTAB. Absent: rales, respiratory distress, rhonchi, wheezes - Cardiovascular Cardiovascular exam: Present: RRR, +S1, +S2 - GI/Abdominal GI/Abdominal exam: Present: normal bowel sounds, soft. Absent: distended, tenderness - Extremities Exam Extremities exam: Present: normal inspection. Absent: joint swelling, pedal edema, tenderness Additional comments: Right foot dressing C/D/I. - Neurological Exam Neurological exam: Present: alert, oriented X3, no focal deficits - Psychiatric Psychiatric exam: Present: normal affect, normal mood - Skin Skin exam: Present: dry, intact, normal color, warm Consult Discharge Plan - Plan Referrals: Fredis Moser DPM [Partnered Physician] - Heriberto Quach DO [Primary Care Provider] - - Attending Attestation I examined this patient and my medical decision-making was reviewed with the Resident Physician. I agree with the documented findings, disposition and treatment plan as described except to the extent set forth below.
[2018-03-18] MEDS: traMADol 50 MG TABLET PO PRN (16:54)
[2018-03-19] MEDS: *HR* Heparin 5,000 UNIT/ML VIAL SQ SCH ×3 (06:16→23:41)
--- NOTE | 2018-03-19 09:26 | Internal Med Progress Note ---
Hospitalist Progress Note - Encounter Date of Encounter: 03/19/18 Time of Encounter: 11:00 - Subjective Interval History: Podiatry with recommendations for closer of surgical wound today Continue IV antibiotics per ID recommendations - Exam Vitals: Temp Pulse Resp BP Pulse Ox 97.9 F 79 15 115/70 97 03/19/18 05:56 03/19/18 05:56 03/19/18 05:56 03/19/18 05:56 03/19/18 05:56 Exam: Gen.: Nonacute distress, alert and oriented 3 ENT: Mucosal membranes moist Respiratory: Lungs are clear to auscultation bilaterally without any wheezing rhonchi or rales Cardiovascular: Normal S1 and S2 regular rate rhythm no murmurs rubs or gallops Abdomen: Soft, nontender and nondistended with positive bowel sounds Extremities: No lower extremity edema Skin: Normal color - Assessment and Plan (1) Diabetic foot ulcer Current Visit: Yes Status: Acute Assessment and Plan: Patient presented with worsening right foot wound Status post incision and drainage by podiatry on 03/16/18 Podiatry with recommendations for closer of surgical wound today Continue IV antibiotics per ID recommendations (2) Hyperglycemia due to type 2 diabetes mellitus Current Visit: Yes Status: Acute Assessment and Plan: Continue basal insulin and coverage with sliding-scale insulin Code(s): E11.65 - Type 2 diabetes mellitus with hyperglycemia SNOMED Code(s): 424854641759051, 421941944996431 (3) HTN (hypertension) Current Visit: No Status: Chronic Assessment and Plan: Controlled; continue Lisinopril and HCTZ Code(s): I10 - Essential (primary) hypertension SNOMED Code(s): 69446818 (4) HLD (hyperlipidemia) Current Visit: No Status: Chronic Assessment and Plan: Continue simvastatin Code(s): E78.5 - Hyperlipidemia, unspecified SNOMED Code(s): 29043411 DVT Prophylaxis: Heparin subcutaneous - Time Spent with Patient Total time spent is greater than 50% in coordination of care (as documented) at patient's floor/unit and/or counseling patient: Internal Medicine: Result - Labs CBC & Chem 7: 03/19/18 09:36 03/19/18 09:36 Labs: Short CBC 03/18/18 Range/Units 10:06 WBC 5.7 (4.3-11.1) K/mcL Hgb 12.9 (11.5-15.4) g/dL Hct 37.9 (35.3-44.9) % Plt Count 309 (140-400) K/mcL Neutrophils # 3.7 (1.6-8.9) K/mcL BMP 03/18/18 10:06 Sodium 137 Potassium 4.0 Chloride 100 Carbon Dioxide 30 H BUN 6 Creatinine 0.55 L Glucose 283 H Calcium 9.3 - ABG Interpretation ABG results: PT/INR, D-dimer PT 10.8 Seconds (9.4-12.1) 03/12/18 01:30 Consult Discharge Plan - Plan Referrals: Fredis Moser DPM [Partnered Physician] - Heriberto Quach DO [Primary Care Provider] - (1) Diabetic foot ulcer Qualifiers: Diabetic foot ulcer location: unspecified part of foot Diabetes mellitus type : type 2 Laterality: right Non-pressure ulcer stage: unspecified non-pressure ulcer stage Qualified Code(s): E11.621 - Type 2 diabetes mellitus with foot ulcer; L97.519 - Non-pressure chronic ulcer of other part of right foot with unspecified severity (2) Hyperglycemia due to type 2 diabetes mellitus Qualifiers: 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
[2018-03-19 09:58] LABS: Basophils % 0.4 %; Eosinophils # 0.1 K/mcL (0.0-0.6); Eosinophils % 1.1 %; Hematocrit 38.5 % (35.3-44.9); Hemoglobin 13.3 g/dL (11.5-15.4); Immature Granulocytes % 1.1 % (0-4); Lymphocytes # 1.3 K/mcL (0.6-4.6); Lymphocytes % 17.3 %; Mean Corpuscular HGB Conc 34.5 g/dL (31.6-35.5); Mean Corpuscular Hemoglobin 30.4 pg (28.0-33.3); Mean Corpuscular Volume 87.9 fL (83.0-100.0); Mean Platelet Volume 8.8 fL (9.4-12.4); Monocytes # 0.4 K/mcL (0.0-1.3); Monocytes % 4.8 %; Neutrophils # 5.7 K/mcL (1.6-8.9); Platelet Count 344 K/mcL (140-400); Red Blood Count 4.38 M/mcL (3.82-4.97); Red Cell Distribution Width 11.7 % (11.5-14.5); Segmented Neutrophils % 75.3 %
[2018-03-19 10:22] LABS: BUN/Creatinine Ratio 13 (6-26); Blood Urea Nitrogen 9 mg/dL (6-20); Calcium 9.2 mg/dL (8.6-10.3); Carbon Dioxide 26 mEq/L (23-29); Chloride 98 mEq/L (98-107); Glucose 424 mg/dL (70-105); Osmolality,Calculated 293 (280-300); Potassium 3.6 mEq/L (3.5-5.1); Sodium 133 mEq/L (136-145); eGFR For Non-African Americans > 60 (> 60)
[2018-03-19] MEDS: Magnesium Oxide 400 MG TABLET PO SCH ×2 (10:39→20:04)
[2018-03-19] MEDS: Thiamine (B-1) 100 MG TABLET PO SCH (10:39)
[2018-03-19] MEDS: Gabapentin 400 MG CAPSULE PO SCH ×2 (10:39→20:03)
[2018-03-19] MEDS: traMADol 50 MG TABLET PO PRN ×2 (10:40→20:03)
[2018-03-19] MEDS: Insulin LISPRO 300 UNITS/3 ML VIAL SQ SCH ×5 (10:40→23:48)
[2018-03-19] MEDS: Insulin DETEMIR 100 UNIT/ML X5UNITS SQ SCH ×2 (10:49→23:42)
[2018-03-19] MEDS: Sennosides/Docusate Sodium TABLET PO SCH ×2 (10:50→20:03)
[2018-03-19] MEDS: Ampicillin 2 GM in 0.9 % Sodium Chloride Mini Bag 100 ML IVPB SCH ×3 (12:47→13:11)
--- NOTE | 2018-03-19 13:17 | Infectious Disease Progress No ---
Date of Encounter: 03/19/18 Time of Encounter: 12:10 - Assessment and Plan (1) Cellulitis Current Visit: Yes Status: Acute Location: Right foot. Causative organism: Likely group B strep. Likely secondary to right foot diabetic foot ulcer. Failed outpatient oral antibiotics. ESR 63, CRP 134. X-ray of the right foot showed severe soft tissue swelling of the forefoot that has increased since previous imaging, but no abscess or ostium myelitis. MRI of the right foot showed no abscess or soft tissue gas, but there were findings concerning for phlegmon and a nonspecific joint effusion of the first MTP without septic arthritis. Podiatry was consulted. The patient underwent a bedside I&D on 03/14/18 that revealed probing to the deep soft tissue and increased drainage. She was taken to the operating room on 03/16/18 and underwent an I&D of the right foot abscess. Intraoperative cultures are positive for GBS as well. Wound care and activity restrictions per the podiatry team. Scheduled for repeat washout later today. Discussed the possibility of IV antibiotics on discharge with the patient. She would like to return to work soon after discharge when cleared by Podiatry. Ampicillin is given via continuous IV infusion in the home setting, which is not feasible if the patient is planning to return to work. Will stop ampicillin and start Rocephin 2 grams IV daily. Duration of treatment depends on the clinical picture. Discussed with Dr. Moser. Will plan on two weeks of IV antibiotics initially if the patient is agreeable and follow how she does clinically and her inflammatory markers and base further antibiotics on that. Monitor renal function and dose adjust antibiotics. Consult VAT for midline placement. Will need weekly CBC, BUN/Cr, ESR, and CRP. Will need weekly midline care per protocol. Follow up with ID 04/07/18 at 0920. Qualifiers: Site of cellulitis: extremity Site of cellulitis of extremity: lower extremity Laterality: right Qualified Code(s): L03.115 - Cellulitis of right lower limb (2) Wound abscess Current Visit: No Status: Acute Location: Right foot. Causative organism: Likely group B strep. Status post bedside I&D 03/14/18 by podiatry. Status post operative I&D of the right foot abscess 03/16/[address] Serrano. Operative note reviewed. Purulence noted Intra-Op. Intraoperative cultures are positive for GBS. Wound care and activity restrictions per the podiatry team. Continue antibiotics as above. Duration of treatment depends on the clinical picture. (3) Diabetic foot ulcer Current Visit: Yes Status: Acute Location: Right foot. Etiology unclear. The patient denies any known trauma or foreign body. Wound care per the podiatry team Qualifiers: Diabetic foot ulcer location: unspecified part of foot Diabetes mellitus type: type 2 Laterality: right Non-pressure ulcer stage: unspecified non- pressure ulcer stage Qualified Code(s): E11.621 - Type 2 diabetes mellitus with foot ulcer; L97.519 - Non-pressure chronic ulcer of other part of right foot with unspecified severity (4) Hyperglycemia due to type 2 diabetes mellitus Current Visit: No Status: Chronic Hemoglobin A1c 13.2. Blood sugars continue to run high in the 200-300 range. Recommend aggressive glucose monitoring and control to promote wound healing and prevent reinfection. Management per the primary team. 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 Appears resolved. Qualifiers: Vomiting type: projectile vomiting Nausea presence: with nausea Qualified Code(s): R11.12 - Projectile vomiting (6) Headache Current Visit: Yes Status: Acute Etiology unclear. CT of the head negative. Improved. Pain management per the primary team. Qualifiers: Headache type: unspecified Headache chronicity pattern: acute headache Intractability: not intractable Qualified Code(s): R51 - Headache - Subjective Interval history: Patient seen and examined. No acute events noted overnight. Patient states that overall she feels okay. Continues to have persistent posterior headache, but states it is better today. Denies nausea, vomiting, or diarrhea. Denies abdominal pain or urinary complaints. Denies pain at the surgical site. States appetite is okay. Denies chest pain, shortness of breath, or cough. Denies oral thrush or new skin lesions. Scheduled to go back to the OR around 4 today. Infect Dis PN-Objective Data - Labs CBC & Chem 7: 03/19/18 09:36 03/19/18 09:36 Labs: Laboratory Results - last 24 hr 03/18/18 03/18/18 03/19/18 16:03 21:13 06:27 WBC RBC Hgb Hct MCV MCH MCHC RDW Plt Count MPV Immature Gran % Seg Neutrophils % Lymphocytes % Monocytes % Eosinophils % Basophils % Neutrophils # Lymphocytes # Monocytes # Eosinophils # Basophils # Sodium Potassium Chloride Carbon Dioxide BUN Creatinine Est GFR ( Amer) Est GFR (Non-Af Amer) BUN/Creatinine Ratio Glucose POC Glucose 199 H 229 H 240 H Calculated Osmolality Calcium 03/19/18 03/19/18 03/19/18 09:36 09:36 11:07 WBC 7.5 RBC 4.38 Hgb 13.3 Hct 38.5 MCV 87.9 MCH 30.4 MCHC 34.5 RDW 11.7 Plt Count 344 MPV 8.8 L Immature Gran % 1.1 Seg Neutrophils % 75.3 Lymphocytes % 17.3 Monocytes % 4.8 Eosinophils % 1.1 Basophils % 0.4 Neutrophils # 5.7 Lymphocytes # 1.3 Monocytes # 0.4 Eosinophils # 0.1 Basophils # 0.0 Sodium 133 L Potassium 3.6 Chloride 98 Carbon Dioxide 26 BUN 9 Creatinine 0.69 Est GFR ( Amer) > 60 Est GFR (Non-Af Amer) > 60 BUN/Creatinine Ratio 13 Glucose 424 H POC Glucose 374 H Calculated Osmolality 293 Calcium 9.2 Cultures: Cultures 03/16/18 17:35 Surgical Biopsy Culture - Preliminary Right Foot Strep agalactiae - (Group B) Exam - Constitutional Vitals: Temp Pulse Resp BP Pulse Ox 97.9 F 76 16 125/80 99 03/19/18 11:11 03/19/18 11:11 03/19/18 11:11 03/19/18 11:11 03/19/18 11:11 General appearance: average body habitus, cooperative, no acute distress - Head Head exam: Present: atraumatic, normal inspection, normocephalic - Eye Eye exam: Present: EOMI, normal appearance, PERRL Pupils: Present: normal accommodation - ENT ENT exam: Present: mucous membranes moist - Neck Neck exam: Present: normal inspection - Respiratory Respiratory exam: Present: CTAB. Absent: rales, respiratory distress, rhonchi, wheezes - Cardiovascular Cardiovascular exam: Present: RRR, +S1, +S2 - GI/Abdominal GI/Abdominal exam: Present: normal bowel sounds, soft. Absent: distended, tenderness - Extremities Exam Extremities exam: Present: normal inspection. Absent: joint swelling, pedal edema, tenderness Additional comments: Right foot dressing C/D/I. - Neurological Exam Neurological exam: Present: alert, oriented X3, no focal deficits - Psychiatric Psychiatric exam: Present: normal affect, normal mood - Skin Skin exam: Present: dry, intact, normal color, warm Consult Discharge Plan - Plan Referrals: Fredis Moser DPM [Partnered Physician] - Heriberto Quach DO [Primary Care Provider] - - Attending Attestation I examined this patient and my medical decision-making was reviewed with the Resident Physician. I agree with the documented findings, disposition and treatment plan as described except to the extent set forth below.
[2018-03-19] MEDS ORDERED: Lidocaine -MPF 1% 5 ML AMPUL INFILT ONE ×2 (13:49→17:28)
[2018-03-19] MEDS ORDERED: cefTRIAXone 2,000 MG in 0.9 % Sodium Chloride Mini Bag 100 ML IVPB SCH (14:00)
[2018-03-19] MEDS ORDERED: Bupivacaine/EPI 1:200k 0.25%PF 10 ML VIAL INFILT ONE (15:34)
[2018-03-19] MEDS ORDERED: Lidocaine 1% 20 ML MDV ONE (15:35)
--- NOTE | 2018-03-19 15:43 | Anesthesia Evaluation PreOp ---
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: Denies Any Significant HX Other Medical History: Diabetes Type II, Other (Arthritis) Anesthesia History: No Prior Anesthetic Complications Alcohol Use: none Drug use: none Medications and Allergies Acetaminophen [Tylenol] 650 mg PO Q6HR PRN #0 tablet 01/10/16 [Rx] Bifidobacterium Infantis [Align] 4 mg PO DAILY 04/20/17 [History] Colestipol HCl [Colestid] 2 gm PO DAILY 04/20/17 [History] Dicyclomine [Bentyl] 20 mg PO QID 04/20/17 [History] Gabapentin [Neurontin] 1,600 mg PO HS 04/20/17 [History] Gabapentin [Neurontin] 800 mg PO BID 04/20/17 [History] Insulin ASPART [Novolog Flexpen] 30 unit SQ DAILY 04/20/17 [History] Insulin Glargine,Hum.rec.anlog [Lantus Solostar] 35 unit SQ HS 04/20/17 [History ] Lisinopril-HCTZ 10-12.5 [Prinzide 10-12.5] 1 tab PO DAILY 04/20/17 [History] Simvastatin [Zocor] 40 mg PO DAILY 04/20/17 [History] Clindamycin HCl [Cleocin HCl] 300 mg PO TID 03/11/18 [History] Amitriptyline [Elavil] 10 mg PO HS 03/12/18 [History] Citalopram [CeleXA] 20 mg PO DAILY 03/12/18 [History] 3 Allergy/AdvReac Type Severity Reaction Status Date / Time No Known Allergies Allergy Verified 04/20/17 08:52 - Meds/Allergy Pre-op Review Medications Reviewed: Yes Allergies Reviewed: Yes Beta Blockers on Current Med List: No Anesthesia Results - Labs 03/19/18 09:36 03/19/18 09:36 Anesthesia Exam O2 Sat Weight 77.8 kg O2 Sat by Pulse Oximetry 99 O2 Sat by Pulse Oximetry 99 O2 Sat by Pulse Oximetry 97 O2 Sat by Pulse Oximetry 97 O2 Sat by Pulse Oximetry 99 Vital Signs Temp Pulse Resp BP Pulse Ox 98.7 F 117 20 145/97 98 03/11/18 19:33 03/11/18 19:33 03/11/18 19:33 03/11/18 19:33 03/11/18 19:33 Height: 5'7 Weight: 171 lbs NPO (# of Hours): MN Pain Scale: 0 - HEENT Pupil (Motor): Pupils equal, EOMI Mallampati: III Teeth: Normal Oral Opening: Less than or equal to 3 - CORRECTIONAL FACILITY NURSE LOC: Oriented CORRECTIONAL FACILITY NURSE Motor: Normal RUE, Normal LUE, Normal RLE, Normal LLE, Normal Face CORRECTIONAL FACILITY NURSE Sensory: Normal: RUE, LUE, RLE, LLE, Face - Cardiac Rhythm: Regular Murmur: None JVD: No Carotid Bruit: No - Pulmonary Breath Sounds: bilateral Clear Respiratory Effort: Symmetrical Anesthesia Assess/Plan ASA Score: 3 (DM HTN PE) Modified [place] Scale for Level of Consciousness: Cooperative, oriented, and tranquil Anesthetic Plan: MAC Monitoring Plan: Standard Monitors Recovery Plan: Other (Discussed MAC, possible GA, agrees to proceed)
[2018-03-19] MEDS ORDERED: Vancomycin 1,000 MG, 0.9 % Sodium Chloride 1,000 ML IR ONE ×2 (16:00→17:28)
[2018-03-19] MEDS ORDERED: *HR* Propofol 200 MG/20 ML VIAL IVP ONE (16:03)
[2018-03-19] MEDS ORDERED: Propofol 500 MG/50 ML INFUS..BTL ONE (16:03)
[2018-03-19] MEDS ORDERED: Lidocaine -MPF 2% 2 ML VIAL ONE (16:03)
[2018-03-19] MEDS ORDERED: Vancomycin 1,000 MG VIAL ONE (16:11)
--- NOTE | 2018-03-19 17:12 | Orthopedic Operative Note ---
Date of procedure: 03/19/18 Pre-op diagnosis: right foot diabetic foot infection, abscess Post-op diagnosis: same Procedure: 1. Incision and drainage right foot wound with delayed primary closure. 03/19/18 17:10 Implants: None Complications: None Anesthesia: MAC, local Local Anesthetics: 0.5% Sensorcaine HCL SubQ (cc), 1% Lidocaine HCL SubQ (cc) Surgeon: Fredis Moser Was there an dental ceramist assistant present: No Estimated blood loss (cc): 3 Tourniquet Time (Minutes): 14 Specimen: None Condition: stable Disposition: floor Procedure in Detail: INDICATIONS AND CONSENT Ruth Santo is a 52 year old female, type II diabetic who originally presented with right plantar foot callus with underlying abscess. She failed oral antibiotics as well as a course of IV antibiotics. She had worsening cellulitis and tracking of the plantar foot abscess. MRI showed no evidence of septic joint or sinus tract deep to the ulcer. Initial treatment included debridement of the callus tissue, irrigation, and packing of the wound with iodoform. However, the wound continued to drain purulent fluid and the cellulitis worsened. She then underwent an initial incision and drainage of the abscess and the wound was left open to drain for 48 hours. The cellulitis improved, drainage decreased, and the wound depth improved. Surgical plan was to go back to the operating room for repeat incision and drainage with delayed primary closure of the wounds. We discussed the above procedures in detail. This included a discussion on the indications, contraindications, and possible complications including but not limited to: worsening infection, non-healing wound, pain, swelling, bleeding, blood clots, heart complications, nerve injury , vascular injury, loss of limb, loss of life, need for prolonged antibiotics, and need for further surgery. We also reviewed the expected post operative course, including a discussion on the non-weightbearing status after this procedure. She related understanding of our discussion regarding this surgery. All questions were answered to her satisfaction, and a proper written informed consent was obtained, signed, and placed in the chart. No guarantees were given , stated or implied, as to the outcome of this procedure. PROCEDURE IN DETAIL The patient was seen in the pre-operative holding area by Anesthesia, where she was consented for MAC anesthesia with local block. The patient was brought back into the operating room placed on the bed in a supine position. A sign in was performed. A well-padded right ankle tourniquet was placed. MAC was initiated by anesthesia team. The right lower extremity was scrubbed, prepped, and draped in the usual sterile technique. A timeout was then performed. The retention suture was removed. An esmarch was used to exsanguinate the right foot and the tourniquet was inflated to 250mmHg. The right first ray was injected with a total of 10 mL of 1% lidocaine plain and a Barrett block distribution. Right plantar foot wound measured 1.5cm x 4.0cm and probed deep to muscle fascia layer. The medial foot wound measured 0.5cm x 0.5cm x 0.3cm. The wounds did not tunnel to each other. Both wounds were sharply debrided using a 15 blade, rongeur, and curette to excise any remaining non-viable tissue and wound margins to healthy, bleeding tissue. No active drainage or purulence was noted. The wounds were then irrigated with 1g Vancomycin infused 3 L of normal saline with cysto tubing. The tourniquet was released. Both wounds were re-approximated using 2-0 nylon with the skin under minimal tension. The wounds were then covered with Xeroform, Kerlix fluff, Kerlix roll, ABDs, and VERNA wrap. Following the procedure, proper hyperemic response was noted to the digits on the right foot. Capillary refill time of the toes on the right foot was also noted to be brisk at this time. A sign-out was performed. The patient tolerated anesthesia and the procedure well, and was transferred to PAC-U with vital signs stable and vascular status intact to the right lower extremity. Needle and sponge counts were correct X 2 at the end of the case. Dr. Fredis Moser was present, scrubbed, and participated in all vital aspects of the procedure. After a brief stay in PAC-U, the patient will be admitted back to the floor for continued IV antibiotics and wound care. ID plans include 2 weeks of IV antibiotics. Wound dressing to remain intact until post op day 3, unless she is discharged prior to that time in which it will be changed in Podiatry clinic . 03/19/18 17:12
--- NOTE | 2018-03-19 17:17 | Anesthesia Evaluation Post Op ---
Date of Encounter: 03/19/18 Time of Encounter: 17:15 - Vital Signs Vital Signs: Vital Signs/O2 Sat/Glucose, Most Current Pulse Resp BP Pulse Ox 03/19/18 15:45 84 20 132/93 97 - Lungs Lungs: Clear Ascult./Percussion - Airway Airway: Non-obstructed - Cardiovascular Regular Rate - Mental Status Mental Status: Alert & Oriented, Answers Appropriately - Pain Pain Scale: 0 - Nausea Vomiting Nausea Vomiting: Not Present - Hydration Hydration: NPO - Discharge PostOp Status: Transfer Patient to floor
[2018-03-19] MEDS ORDERED: *HR* Dextrose 50 % in Water (Syg) 50 ML SYRINGE IVP PRN (17:28)
[2018-03-19] MEDS ORDERED: Acetaminophen 325 MG TABLET PO PRN (17:28)
[2018-03-19] MEDS ORDERED: D5% in Water 1,000 ML IVC PRN (17:28)
[2018-03-19] MEDS ORDERED: Ondansetron 4 MG/2 ML VIAL IVP PRN (17:28)
[2018-03-19] MEDS ORDERED: Dextrose Gel 15 GM/37.5 ML TUBE PO PRN ×2 (17:28)
[2018-03-19] MEDS ORDERED: Naloxone 0.4 MG/ML INJ IVP PRN (17:28)
[2018-03-20] MEDS: *HR* Heparin 5,000 UNIT/ML VIAL SQ SCH ×3 (05:56→21:09)
--- NOTE | 2018-03-20 08:49 | Internal Med Progress Note ---
Hospitalist Progress Note - Encounter Date of Encounter: 03/20/18 Time of Encounter: 11:00 - Subjective Interval History: Patient status post incision and drainage and most recently delayed primary closure Surgical and wound cultures have grown strep B Podiatry to determine disposition status post surgical closure on 03/19/18 Infectious disease with recommendations for a midline for long-term antibiotic treatment as an outpatient. - Exam Vitals: Temp Pulse Resp BP Pulse Ox 98.3 F 75 16 105/69 97 03/20/18 07:11 03/20/18 07:11 03/20/18 07:11 03/20/18 07:11 03/20/18 07:11 Exam: Gen.: Nonacute distress, alert and oriented 3 ENT: Mucosal membranes moist Respiratory: Lungs are clear to auscultation bilaterally without any wheezing rhonchi or rales Cardiovascular: Normal S1 and S2 regular rate rhythm no murmurs rubs or gallops Abdomen: Soft, nontender and nondistended with positive bowel sounds Extremities: No lower extremity edema Skin: Normal color - Assessment and Plan (1) Diabetic foot ulcer Current Visit: Yes Status: Acute Assessment and Plan: Patient presented with worsening right foot wound Status post incision and drainage by podiatry on 03/16/18 Patient now status post surgical primary closure on 03/19/18 Both surgical and wound cultures have grown strep B Infectious disease with recommendations to change IV antibiotics from ampicillin to Rocephin to continue for a two-week course as an outpatient; a midline has been placed. Podiatry to determine disposition of patient status post surgical closure (2) Hyperglycemia due to type 2 diabetes mellitus Current Visit: Yes Status: Acute Assessment and Plan: Continue basal insulin and coverage with sliding-scale insulin Code(s): E11.65 - Type 2 diabetes mellitus with hyperglycemia SNOMED Code(s): 603359558247571, [id number] (3) HTN (hypertension) Current Visit: No Status: Chronic Assessment and Plan: Controlled; continue Lisinopril and HCTZ Code(s): I10 - Essential (primary) hypertension SNOMED Code(s): 83656131 (4) HLD (hyperlipidemia) Current Visit: No Status: Chronic Assessment and Plan: Continue simvastatin Code(s): E78.5 - Hyperlipidemia, unspecified SNOMED Code(s): 61222339 DVT Prophylaxis: Heparin subcutaneous - Time Spent with Patient Total time spent is greater than 50% in coordination of care (as documented) at patient's floor/unit and/or counseling patient: Internal Medicine: Result - Labs CBC & Chem 7: 03/20/18 11:12 03/20/18 11:12 Labs: Short CBC 03/19/18 Range/Units 09:36 WBC 7.5 (4.3-11.1) K/mcL Hgb 13.3 (11.5-15.4) g/dL Hct 38.5 (35.3-44.9) % Plt Count 344 (140-400) K/mcL Neutrophils # 5.7 (1.6-8.9) K/mcL BMP 03/19/18 09:36 Sodium 133 L Potassium 3.6 Chloride 98 Carbon Dioxide 26 BUN 9 Creatinine 0.69 Glucose 424 H Calcium 9.2 - ABG Interpretation ABG results: PT/INR, D-dimer PT 10.8 Seconds (9.4-12.1) 03/12/18 01:30 Consult Discharge Plan - Plan Referrals: Fredis Moser DPM [Partnered Physician] - Heriberto Quach DO [Primary Care Provider] - (1) Diabetic foot ulcer Qualifiers: Diabetic foot ulcer location: unspecified part of foot Diabetes mellitus type : type 2 Laterality: right Non-pressure ulcer stage: unspecified non-pressure ulcer stage Qualified Code(s): E11.621 - Type 2 diabetes mellitus with foot ulcer; L97.519 - Non-pressure chronic ulcer of other part of right foot with unspecified severity (2) Hyperglycemia due to type 2 diabetes mellitus Qualifiers: Diabetes mellitus assisted insulin use: with assisted use Qualified Code(s) : E11.65 - Type 2 diabetes mellitus with hyperglycemia; 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
[2018-03-20] MEDS ORDERED: CefTRIAXone 2,000 MG VIAL ONE (10:49)
[2018-03-20] MEDS: Sennosides/Docusate Sodium TABLET PO SCH ×2 (10:56→21:02)
[2018-03-20] MEDS: cefTRIAXone 2,000 MG in Water for inj. (sterile) 20 ML 20 ML IVP SCH (10:57)
[2018-03-20] MEDS: Thiamine (B-1) 100 MG TABLET PO SCH (10:58)
[2018-03-20] MEDS: Magnesium Oxide 400 MG TABLET PO SCH ×2 (10:58→21:02)
[2018-03-20] MEDS: Gabapentin 400 MG CAPSULE PO SCH ×3 (10:58→21:08)
[2018-03-20] MEDS: traMADol 50 MG TABLET PO PRN (10:59)
[2018-03-20] MEDS: Insulin LISPRO 300 UNITS/3 ML VIAL SQ SCH ×7 (11:00→21:00)
[2018-03-20] MEDS: Insulin DETEMIR 100 UNIT/ML X5UNITS SQ SCH ×2 (11:00→21:09)
[2018-03-20 12:00] LABS: Basophils % 0.2 %; Eosinophils # 0.1 K/mcL (0.0-0.6); Eosinophils % 1.2 %; Hemoglobin 12.5 g/dL (11.5-15.4); Immature Granulocytes % 0.7 % (0-4); Lymphocytes # 1.6 K/mcL (0.6-4.6); Mean Corpuscular HGB Conc 33.8 g/dL (31.6-35.5); Mean Corpuscular Hemoglobin 29.8 pg (28.0-33.3); Mean Corpuscular Volume 88.1 fL (83.0-100.0); Mean Platelet Volume 8.9 fL (9.4-12.4); Monocytes # 0.4 K/mcL (0.0-1.3); Monocytes % 4.4 %; Neutrophils # 6.1 K/mcL (1.6-8.9); Platelet Count 320 K/mcL (140-400); Red Cell Distribution Width 11.7 % (11.5-14.5); Segmented Neutrophils % 74.5 %
[2018-03-20 12:09] LABS: BUN/Creatinine Ratio 18 (6-26); Blood Urea Nitrogen 12 mg/dL (6-20); Calcium 9.1 mg/dL (8.6-10.3); Carbon Dioxide 29 mEq/L (23-29); Chloride 99 mEq/L (98-107); Glucose 300 mg/dL (70-105); Osmolality,Calculated 293 (280-300); Sodium 136 mEq/L (136-145); eGFR For Non-African Americans > 60 (> 60)
[2018-03-21] MEDS: *HR* Heparin 5,000 UNIT/ML VIAL SQ SCH ×3 (05:10→21:05)
[2018-03-21] MEDS: Thiamine (B-1) 100 MG TABLET PO SCH (08:36)
[2018-03-21] MEDS: Gabapentin 400 MG CAPSULE PO SCH ×3 (08:36→21:05)
[2018-03-21] MEDS: Sennosides/Docusate Sodium TABLET PO SCH ×2 (08:37→21:06)
[2018-03-21] MEDS: cefTRIAXone 2,000 MG in Water for inj. (sterile) 20 ML 20 ML IVP SCH (08:37)
[2018-03-21] MEDS: Magnesium Oxide 400 MG TABLET PO SCH ×2 (08:37→21:06)
[2018-03-21] MEDS: Insulin DETEMIR 100 UNIT/ML X5UNITS SQ SCH ×2 (08:38→21:05)
[2018-03-21] MEDS: Insulin LISPRO 300 UNITS/3 ML VIAL SQ SCH ×7 (08:39→21:05)
--- NOTE | 2018-03-21 08:55 | Internal Med Progress Note ---
Hospitalist Progress Note - Encounter Date of Encounter: 03/21/18 Time of Encounter: 11:00 - Subjective Interval History: Patient status post incision and drainage and most recently delayed primary closure Surgical and wound cultures have grown strep B Podiatry to determine disposition status post surgical closure on 03/19/18 Patient with midline for long-term antibiotic treatment per infectious disease recommendations and IV antibiotics have been adjusted - Exam Vitals: Temp Pulse Resp BP Pulse Ox 98.2 F 75 16 105/68 97 03/21/18 07:27 03/21/18 07:27 03/21/18 07:27 03/21/18 07:27 03/21/18 07:27 Exam: Gen.: Nonacute distress, alert and oriented 3 ENT: Mucosal membranes moist Respiratory: Lungs are clear to auscultation bilaterally without any wheezing rhonchi or rales Cardiovascular: Normal S1 and S2 regular rate rhythm no murmurs rubs or gallops Abdomen: Soft, nontender and nondistended with positive bowel sounds Extremities: No lower extremity edema Skin: Normal color - Assessment and Plan (1) Diabetic foot ulcer Current Visit: Yes Status: Acute Assessment and Plan: Patient presented with worsening right foot wound Status post incision and drainage by podiatry on 03/16/18 Patient now status post surgical primary closure on 03/19/18 Both surgical and wound cultures have grown strep B Infectious disease with recommendations to continue IV Rocephin for a two-week course as an outpatient; a midline has been placed. Podiatry to determine disposition of patient status post surgical closure (2) Hyperglycemia due to type 2 diabetes mellitus Current Visit: Yes Status: Acute Assessment and Plan: Continue basal insulin and coverage with sliding-scale insulin Code(s): E11.65 - Type 2 diabetes mellitus with hyperglycemia SNOMED Code(s): 653736017665019, 214586450331217 (3) HTN (hypertension) Current Visit: No Status: Chronic Assessment and Plan: Controlled; continue Lisinopril and HCTZ Code(s): I10 - Essential (primary) hypertension SNOMED Code(s): 61670657 (4) HLD (hyperlipidemia) Current Visit: No Status: Chronic Assessment and Plan: Continue simvastatin Code(s): E78.5 - Hyperlipidemia, unspecified SNOMED Code(s): 18620856 DVT Prophylaxis: Heparin subcutaneous - Time Spent with Patient Total time spent is greater than 50% in coordination of care (as documented) at patient's floor/unit and/or counseling patient: Internal Medicine: Result - Labs CBC & Chem 7: 03/21/18 12:09 03/21/18 12:09 Labs: Short CBC 03/20/18 Range/Units 11:12 WBC 8.1 (4.3-11.1) K/mcL Hgb 12.5 (11.5-15.4) g/dL Hct 37.0 (35.3-44.9) % Plt Count 320 (140-400) K/mcL Neutrophils # 6.1 (1.6-8.9) K/mcL BMP 03/20/18 11:12 Sodium 136 Potassium 4.0 Chloride 99 Carbon Dioxide 29 BUN 12 Creatinine 0.66 Glucose 300 H Calcium 9.1 - ABG Interpretation ABG results: PT/INR, D-dimer PT 10.8 Seconds (9.4-12.1) 03/12/18 01:30 Consult Discharge Plan - Plan Referrals: Fredis Moser DPM [Partnered Physician] - Heriberto Quach DO [Primary Care Provider] - (1) Diabetic foot ulcer Qualifiers: Diabetic foot ulcer location: unspecified part of foot Diabetes mellitus type : type 2 Laterality: right Non-pressure ulcer stage: unspecified non-pressure ulcer stage Qualified Code(s): E11.621 - Type 2 diabetes mellitus with foot ulcer; L97.519 - Non-pressure chronic ulcer of other part of right foot with unspecified severity (2) Hyperglycemia due to type 2 diabetes mellitus Qualifiers: Diabetes mellitus table inspector insulin use: with [facility] use Qualified Code(s) : E11.65 - Type 2 diabetes mellitus with hyperglycemia; Z79.4 - mechanical ordnance assembler ( current) use of insulin (3) HTN (hypertension) Qualifiers: Hypertension type: essential hypertension Qualified Code(s): I10 - Essential (primary) hypertension (4) HLD (hyperlipidemia) Qualifiers: Hyperlipidemia type: unspecified Qualified Code(s): E78.5 - Hyperlipidemia, unspecified
[2018-03-21 12:19] LABS: Basophils % 0.3 %; Eosinophils # 0.1 K/mcL (0.0-0.6); Eosinophils % 1.2 %; Hematocrit 36.3 % (35.3-44.9); Hemoglobin 12.5 g/dL (11.5-15.4); Immature Granulocytes % 0.9 % (0-4); Immature Platelets 1.2 % (1.1-6.1); Lymphocytes # 1.5 K/mcL (0.6-4.6); Lymphocytes % 20.1 %; Mean Corpuscular HGB Conc 34.4 g/dL (31.6-35.5); Mean Corpuscular Volume 87.3 fL (83.0-100.0); Mean Platelet Volume 8.7 fL (9.4-12.4); Monocytes # 0.3 K/mcL (0.0-1.3); Monocytes % 3.5 %; Neutrophils # 5.5 K/mcL (1.6-8.9); Platelet Count 349 K/mcL (140-400); Red Blood Count 4.16 M/mcL (3.82-4.97); Red Cell Distribution Width 11.9 % (11.5-14.5)
[2018-03-21 12:39] LABS: BUN/Creatinine Ratio 22 (6-26); Blood Urea Nitrogen 14 mg/dL (6-20); Calcium 9.2 mg/dL (8.6-10.3); Carbon Dioxide 28 mEq/L (23-29); Chloride 100 mEq/L (98-107); Glucose 301 mg/dL (70-105); Osmolality,Calculated 292 (280-300); Sodium 135 mEq/L (136-145); eGFR For Non-African Americans > 60 (> 60)
[2018-03-22] MEDS: *HR* Heparin 5,000 UNIT/ML VIAL SQ SCH ×2 (06:16→14:15)
[2018-03-22 08:42] LABS: Basophils % 0.5 %; Eosinophils # 0.1 K/mcL (0.0-0.6); Eosinophils % 1.1 %; Hemoglobin 12.6 g/dL (11.5-15.4); Lymphocytes # 2.1 K/mcL (0.6-4.6); Lymphocytes % 25.5 %; Mean Corpuscular HGB Conc 34.1 g/dL (31.6-35.5); Mean Corpuscular Hemoglobin 29.7 pg (28.0-33.3); Mean Corpuscular Volume 87.3 fL (83.0-100.0); Mean Platelet Volume 8.9 fL (9.4-12.4); Monocytes # 0.4 K/mcL (0.0-1.3); Monocytes % 4.6 %; Neutrophils # 5.6 K/mcL (1.6-8.9); Platelet Count 302 K/mcL (140-400); Red Blood Count 4.24 M/mcL (3.82-4.97); Red Cell Distribution Width 11.9 % (11.5-14.5); Segmented Neutrophils % 67.3 %
[2018-03-22 08:50] LABS: BUN/Creatinine Ratio 24 (6-26); Blood Urea Nitrogen 15 mg/dL (6-20); Calcium 9.1 mg/dL (8.6-10.3); Carbon Dioxide 27 mEq/L (23-29); Chloride 102 mEq/L (98-107); Glucose 364 mg/dL (70-105); Osmolality,Calculated 296 (280-300); Potassium 3.8 mEq/L (3.5-5.1); Sodium 135 mEq/L (136-145); eGFR For Non-African Americans > 60 (> 60)
[2018-03-22] MEDS: Insulin LISPRO 300 UNITS/3 ML VIAL SQ SCH ×6 (09:07→17:30)
[2018-03-22] MEDS: Insulin DETEMIR 100 UNIT/ML X5UNITS SQ SCH (09:10)
[2018-03-22] MEDS: cefTRIAXone 2,000 MG in Water for inj. (sterile) 20 ML 20 ML IVP SCH (10:31)
[2018-03-22] MEDS: Sennosides/Docusate Sodium TABLET PO SCH (10:33)
[2018-03-22] MEDS: Thiamine (B-1) 100 MG TABLET PO SCH (10:34)
[2018-03-22] MEDS: Magnesium Oxide 400 MG TABLET PO SCH (10:34)
[2018-03-22] MEDS: Gabapentin 400 MG CAPSULE PO SCH ×2 (10:35→14:15)
[2018-03-22 11:04] VITALS: BP 113/77
--- NOTE | 2018-03-22 12:22 | Infectious Disease Progress No ---
Date of Encounter: 03/22/18 Time of Encounter: 12:19 - Assessment and Plan (1) Cellulitis Current Visit: Yes Status: Acute Location: Right foot. Causative organism: Likely group B strep. Likely secondary to right foot diabetic foot ulcer. Failed outpatient oral antibiotics. ESR 63, CRP 134. X-ray of the right foot showed severe soft tissue swelling of the forefoot that has increased since previous imaging, but no abscess or ostium myelitis. MRI of the right foot showed no abscess or soft tissue gas, but there were findings concerning for phlegmon and a nonspecific joint effusion of the first MTP without septic arthritis. Podiatry was consulted. The patient underwent a bedside I&D on 03/14/18 that revealed probing to the deep soft tissue and increased drainage. She was taken to the operating room on 03/16/18 and underwent an I&D of the right foot abscess. Intraoperative cultures are positive for GBS as well. Wound care and activity restrictions per the podiatry team. Status post repeat I & D with closure 03/19/18. Continue Rocephin 2 grams IV daily. Duration of treatment depends on the clinical picture. Discussed with Dr. Moser. Will plan on two weeks of IV antibiotics initially if the patient is agreeable and follow how she does clinically and her inflammatory markers and base further antibiotics on that. Monitor renal function and dose adjust antibiotics. Will need weekly CBC, BUN/Cr, ESR, and CRP. Will need weekly midline care per protocol. Follow up with ID 04/07/18 at 0920. Qualifiers: Site of cellulitis: extremity Site of cellulitis of extremity: lower extremity Laterality: right Qualified Code(s): L03.115 - Cellulitis of right lower limb (2) Wound abscess Current Visit: No Status: Acute Location: Right foot. Causative organism: Likely group B strep. Status post bedside I&D 03/14/18 by podiatry. Status post operative I&D of the right foot abscess 03/16/[address] Serrano. Operative note reviewed. Purulence noted Intra-Op. Intraoperative cultures are positive for GBS. Wound care and activity restrictions per the podiatry team. Continue antibiotics as above. Duration of treatment depends on the clinical picture. (3) Diabetic foot ulcer Current Visit: Yes Status: Acute Location: Right foot. Etiology unclear. The patient denies any known trauma or foreign body. Wound care per the podiatry team Qualifiers: Diabetic foot ulcer location: unspecified part of foot Diabetes mellitus type: type 2 Laterality: right Non-pressure ulcer stage: unspecified non- pressure ulcer stage Qualified Code(s): E11.621 - Type 2 diabetes mellitus with foot ulcer; L97.519 - Non-pressure chronic ulcer of other part of right foot with unspecified severity (4) Hyperglycemia due to type 2 diabetes mellitus Current Visit: No Status: Chronic Hemoglobin A1c 13.2. Blood sugars continue to run high in the 200-300 range. Recommend aggressive glucose monitoring and control to promote wound healing and prevent reinfection. Management per the primary team. Qualifiers: Diabetes mellitus group home insulin use: with ad terminal makeup operator use Qualified Code( s): E11.65 - Type 2 diabetes mellitus with hyperglycemia; Z79.4 - watermelon inspector ( current) use of insulin (5) Vomiting Current Visit: No Status: Resolved Secondary to headache. Appears resolved. Qualifiers: Vomiting type: projectile vomiting Nausea presence: with nausea Qualified Code(s): R11.12 - Projectile vomiting (6) Headache Current Visit: Yes Status: Acute Etiology unclear. CT of the head negative. Improved. Pain management per the primary team. Qualifiers: Headache type: unspecified Headache chronicity pattern: acute headache Intractability: not intractable Qualified Code(s): R51 - Headache - Subjective Interval history: Patient seen and examined. No acute events noted overnight. Patient states that overall she feels okay. Reports headache has resolved. Denies nausea, vomiting, or diarrhea. Denies abdominal pain or urinary complaints. Denies pain at the surgical site. States appetite is okay. Denies chest pain, shortness of breath, or cough. Denies oral thrush or new skin lesions. Status post repeat washout with closure on Thursday. Pending discharge later today. Infect Dis PN-Objective Data - Labs CBC & Chem 7: 03/22/18 08:20 03/22/18 08:20 Labs: Laboratory Results - last 24 hr 03/21/18 03/21/18 03/21/18 07:25 11:06 12:09 WBC 7.4 RBC 4.16 Hgb 12.5 Hct 36.3 MCV 87.3 MCH 30.0 MCHC 34.4 RDW 11.9 Plt Count 349 MPV 8.7 L Immature Gran % 0.9 Seg Neutrophils % 74.0 Lymphocytes % 20.1 Monocytes % 3.5 Eosinophils % 1.2 Basophils % 0.3 Neutrophils # 5.5 Lymphocytes # 1.5 Monocytes # 0.3 Eosinophils # 0.1 Basophils # 0.0 Immature Plt Fraction 1.2 Sodium Potassium Chloride Carbon Dioxide BUN Creatinine Est GFR ( Amer) Est GFR (Non-Af Amer) BUN/Creatinine Ratio Glucose POC Glucose 286 H 360 H Calculated Osmolality Calcium 03/21/18 03/21/18 03/22/18 12:09 17:46 08:20 WBC 8.3 RBC 4.24 Hgb 12.6 Hct 37.0 MCV 87.3 MCH 29.7 MCHC 34.1 RDW 11.9 Plt Count 302 MPV 8.9 L Immature Gran % 1.0 Seg Neutrophils % 67.3 Lymphocytes % 25.5 Monocytes % 4.6 Eosinophils % 1.1 Basophils % 0.5 Neutrophils # 5.6 Lymphocytes # 2.1 Monocytes # 0.4 Eosinophils # 0.1 Basophils # 0.0 Immature Plt Fraction Sodium 135 L Potassium 4.0 Chloride 100 Carbon Dioxide 28 BUN 14 Creatinine 0.64 Est GFR ( Amer) > 60 Est GFR (Non-Af Amer) > 60 BUN/Creatinine Ratio 22 Glucose 301 H POC Glucose 263 H Calculated Osmolality 292 Calcium 9.2 03/22/18 08:20 WBC RBC Hgb Hct MCV MCH MCHC RDW Plt Count MPV Immature Gran % Seg Neutrophils % Lymphocytes % Monocytes % Eosinophils % Basophils % Neutrophils # Lymphocytes # Monocytes # Eosinophils # Basophils # Immature Plt Fraction Sodium 135 L Potassium 3.8 Chloride 102 Carbon Dioxide 27 BUN 15 Creatinine 0.62 Est GFR ( Amer) > 60 Est GFR (Non-Af Amer) > 60 BUN/Creatinine Ratio 24 Glucose 364 H POC Glucose Calculated Osmolality 296 Calcium 9.1 Cultures: Cultures 03/16/18 17:35 Surgical Biopsy Culture - Final Right Foot Strep agalactiae - (Group B) Exam - Constitutional Vitals: Temp Pulse Resp BP Pulse Ox 97.9 F 76 16 113/77 96 03/22/18 10:58 03/22/18 10:58 03/22/18 10:58 03/22/18 10:58 03/22/18 10:58 General appearance: average body habitus, cooperative, no acute distress - Head Head exam: Present: atraumatic, normal inspection, normocephalic - Eye Eye exam: Present: EOMI, normal appearance, PERRL Pupils: Present: normal accommodation - ENT ENT exam: Present: mucous membranes moist - Neck Neck exam: Present: normal inspection - Respiratory Respiratory exam: Present: CTAB. Absent: rales, respiratory distress, rhonchi, wheezes - Cardiovascular Cardiovascular exam: Present: RRR, +S1, +S2 - GI/Abdominal GI/Abdominal exam: Present: normal bowel sounds, soft. Absent: distended, tenderness - Extremities Exam Extremities exam: Present: normal inspection. Absent: joint swelling, pedal edema, tenderness Additional comments: Right foot dressing C/D/I. - Neurological Exam Neurological exam: Present: alert, oriented X3, no focal deficits - Psychiatric Psychiatric exam: Present: normal affect, normal mood - Skin Skin exam: Present: dry, intact, normal color, warm Consult Discharge Plan - Plan Referrals: Fredis Moser DPM [Partnered Physician] - Heriberto Quach DO [Primary Care Provider] - Ofelia Pedro, ALYSHA [Advanced Practice Nurse] - 04/07/18 9:20 am Prescriptions: cefTRIAXone [Rocephin] 2,000 mg IVPB DAILY 14 Days #14 vial - Attending Attestation I examined this patient and my medical decision-making was reviewed with the Resident Physician. I agree with the documented findings, disposition and treatment plan as described except to the extent set forth below.
--- NOTE | 2018-03-22 13:47 | Podiatry Progress Note ---
Date of Encounter: 03/22/18 Time of Encounter: 12:45 - Assessment and Plan (1) Diabetic foot ulcer Current Visit: Yes Status: Acute Minimal erythema noted to foot. Wound edges well approximated. Cleaned wounds with betadine. Applied adaptic, kerlex, and VERNA. ATB to be managed by ID. Appreciate input. Can discharge home. Needs follow up appointment with Dr. Fredis Moser in clinic this week. Do not change dressing until seen in clinic. Qualifiers: Diabetic foot ulcer location: unspecified part of foot Diabetes mellitus type: type 2 Laterality: right Non-pressure ulcer stage: unspecified non- pressure ulcer stage Qualified Code(s): E11.621 - Type 2 diabetes mellitus with foot ulcer; L97.519 - Non-pressure chronic ulcer of other part of right foot with unspecified severity (2) Cellulitis Current Visit: Yes Status: Acute Improved. ATB to be managed by ID. Appreciate input. Qualifiers: Site of cellulitis: extremity Site of cellulitis of extremity: lower extremity Laterality: right Qualified Code(s): L03.115 - Cellulitis of right lower limb Subjective Principal diagnosis: cellulitis Interval history: Upon entering room patient sitting in chair eating lunch. Patient able to get into bed without any assistance. Denies any pain. Denies any fever or chills. Objective - Vital Signs Vital Signs: Vital Signs Temp Pulse Resp BP Pulse Ox 03/22/18 10:58 97.9 F 76 16 113/77 96 03/22/18 07:28 97.7 F 93 15 120/77 97 03/22/18 03:43 98 F 77 18 95/62 96 03/22/18 00:19 98.6 F 90 18 102/69 97 03/21/18 20:28 98.5 F 83 16 111/71 97 03/21/18 17:48 97.6 F 95 16 120/81 99 Intake and Output 03/21/18 03/22/18 03/22/18 23:59 07:59 15:59 Intake Total 0 / 0 0 / 0 1080 / 1080 Output Total 0 / 0 1100 / 1100 Balance 0 / 0 0 / 0 -20 / -20 Intake: Oral 0 / 0 0 / 0 1080 / 1080 Output: Urine 0 / 0 1100 / 1100 Other: Meal Lunch Percent of Meal Consumed 100% # Voids 1 Weight 76 kg Blood Glucose* 226 307 349 Patient Weight 03/22/18 23:59 Weight 76 kg - Exam Incision: Present: healing Capillary Refill: less than 3 seconds - Lab Result Diagrams: 03/22/18 08:20 03/22/18 08:20 Labs: Abnormal lab results MPV 8.9 fL (9.4-12.4) L 03/22/18 08:20 ESR 63 mm/hr (0-15) H 03/12/18 09:47 Heparin Anti-Xa, Unfract 0.18 IU/mL (0.30-0.70) L 03/12/18 14:12 Sodium 135 mEq/L (136-145) L 03/22/18 08:20 Glucose 364 mg/dL (70-105) H 03/22/18 08:20 POC Glucose 226 mg/dL (70-99) H 03/21/18 20:33 Hemoglobin A1c 13.2 % (-5.6) H 03/11/18 20:32 C-Reactive Protein 134 mg/L (Less than 10) H 03/12/18 09:47 Microbiology, Last 48 Hours 03/16/18 17:35 Surgical Biopsy Culture - Final Right Foot Strep agalactiae - (Group B) Consult Discharge Plan - Plan Additional Instructions: Do not change dressing until follow up in office this week. Wear surgical shoe when ambulating Referrals: Ofelia Pedro CNP [Advanced Practice Nurse] - 04/07/18 9:20 am Heriberto Quach DO [Primary Care Provider] - Fredis Moser DPM [Partnered Physician] - (Please set up appointment for this week. ) Prescriptions: cefTRIAXone [Rocephin] 2,000 mg IVPB DAILY 14 Days #14 vial
--- NOTE | 2018-03-22 14:58 | Discharge Summary ---
- NOTES TO OUTPATIENT PROVIDER Notes to Outpatient Provider: Patient to complete a 14 day course of IV antibiotic and follow-up with podiatry Date of Encounter: 03/22/18 Time of Encounter: 11:00 - Discharge Diagnosis (1) Diabetic foot ulcer Priority: Primary Status: Acute Qualifiers: Diabetic foot ulcer location: unspecified part of foot Diabetes mellitus type: type 2 Laterality: right Non-pressure ulcer stage: unspecified non- pressure ulcer stage Qualified Code(s): E11.621 - Type 2 diabetes mellitus with foot ulcer; L97.519 - Non-pressure chronic ulcer of other part of right foot with unspecified severity (2) Hyperglycemia due to type 2 diabetes mellitus Priority: Primary Status: Acute Qualifiers: 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 insulin use: with detention use Qualified Code( s): E11.65 - Type 2 diabetes mellitus with hyperglycemia; Z79.4 - [facility] ( current) use of insulin Code(s): E11.65 - Type 2 diabetes mellitus with hyperglycemia SNOMED Code(s): 690116483588804, [id number] (3) HTN (hypertension) Priority: Secondary Status: Chronic Qualifiers: Hypertension type: essential hypertension Qualified Code(s): I10 - Essential (primary) hypertension Code(s): I10 - Essential (primary) hypertension SNOMED Code(s): 24070472 (4) HLD (hyperlipidemia) Priority: Secondary Status: Chronic Qualifiers: Hyperlipidemia type: unspecified Qualified Code(s): E78.5 - Hyperlipidemia , unspecified Code(s): E78.5 - Hyperlipidemia, unspecified SNOMED Code(s): 50454271 Hospital course: Patient is a 52-year-old female with past medical history significant for prior PE and DVT in addition to hypertension and hyperlipidemia and diabetes who presented to the ER on 03/14/18 due to right foot pain/swelling. She reported of worsening redness, pain and swelling so decided to go to primary care provider and was started on clindamycin. However patient reported no improvement so she decided to come to the ER for evaluation. In the ER, patient was found to have leukocytosis therefore was started on IV antibiotics admitted to medical surgical floor for further management. During patients hospital stay podiatry was consulted with recommendations for incision and drainage. Patient was treated with IV ampicillin per infectious disease recommendations which was later changed to IV ceftriaxone. A midline was inserted for long-term IV antibiotics as an outpatient. Patient will be discharged to continue a 2 week course of IV Rocephin and follow up with podiatry. - Time Spent with Patient Total time spent providing and/or coordinating discharge services: Less than 30 minutes - Discharge Medications Prescriptions: cefTRIAXone [Rocephin] 2,000 mg IVPB DAILY 14 Days #14 vial Home Medications: Acetaminophen [Tylenol] 650 mg PO Q6HR PRN #0 tablet 01/10/16 [Rx] Bifidobacterium Infantis [Align] 4 mg PO DAILY 04/20/17 [History] Colestipol HCl [Colestid] 2 gm PO DAILY 04/20/17 [History] Dicyclomine [Bentyl] 20 mg PO QID 04/20/17 [History] Gabapentin [Neurontin] 1,600 mg PO HS 04/20/17 [History] Gabapentin [Neurontin] 800 mg PO BID 04/20/17 [History] Insulin ASPART [Novolog Flexpen] 30 unit SQ DAILY 04/20/17 [History] Insulin Glargine,Hum.rec.anlog [Lantus Solostar] 35 unit SQ HS 04/20/17 [History ] Lisinopril-HCTZ 10-12.5 [Prinzide 10-12.5] 1 tab PO DAILY 04/20/17 [History] Simvastatin [Zocor] 40 mg PO DAILY 04/20/17 [History] Amitriptyline [Elavil] 10 mg PO HS 03/12/18 [History] Citalopram [CeleXA] 20 mg PO DAILY 03/12/18 [History] cefTRIAXone [Rocephin] 2,000 mg IVPB DAILY 14 Days #14 vial 03/22/18 [Rx] Allergies/Adverse Reactions: 3 Allergy/AdvReac Type Severity Reaction Status Date / Time No Known Allergies Allergy Verified 04/20/17 08:52 Date of admission: 03/14/18 16:28 Primary care physician: Heriberto Quach DO Consults: 03/17/18 10:55 Consult to Infectious Diseases [CONS] Routine Consulting Provider: Infectious Disease [place] Reason for Consult: Diabetic Foot Infection Time Notified: 10:55 Call Completed: No 03/19/18 13:49 Consult to Invasive Line Access Team [CONS] Routine Reason for Consult: Rocephin 2-6 weeks Line Type: Midline PICC line indications: [facility] Med/Antibiotic Time Notified: 13:49 Call Completed: Yes - Constitutional Vitals: Temp Pulse Resp BP Pulse Ox 97.9 F 76 16 113/77 96 03/22/18 10:58 03/22/18 10:58 03/22/18 10:58 03/22/18 10:58 03/22/18 10:58 General appearance: Present: A&O X 3 Exam: As above - Patient Status Disposition: Home Health Service Condition: Fair - Discharge Instructions Follow Up With: Fredis Moser DPM [Partnered Physician] - 03/25/18 1:00 pm (Please set up appointment for this week. ) Ofelia Pedro RECREATION ESTABLISHMENT MANAGER [Advanced Practice Nurse] - 04/07/18 9:20 am Heriberto Quach DO [Primary Care Provider] - Additional Instructions: Do not change dressing until follow up in office this week. Wear surgical shoe when ambulating
--- NOTE | 2018-03-22 14:59 | Physician Discharge Referral ---
Home Health/Hosp Referral Info Transfer to: Home Health - Diagnosis (1) Diabetic foot ulcer Status: Acute (2) Hyperglycemia due to type 2 diabetes mellitus Status: Acute (3) HTN (hypertension) Status: Chronic (4) HLD (hyperlipidemia) Status: Chronic - Respiratory Orders Smoking Cessation: Smoking cessation has been advised. For more information, call the [place] Tobacco Quit Line at 0-489-FDFN-NOW. - Services Needed Following services are medically necessary services: Nursing, Home Health Aide, Physical Therapy, Occupational Therapy, Home Infusion - Transfer Medications Prescriptions: cefTRIAXone [Rocephin] 2,000 mg IVPB DAILY 14 Days #14 vial Home Medications: Acetaminophen [Tylenol] 650 mg PO Q6HR PRN #0 tablet 01/10/16 [Rx] Bifidobacterium Infantis [Align] 4 mg PO DAILY 04/20/17 [History] Colestipol HCl [Colestid] 2 gm PO DAILY 04/20/17 [History] Dicyclomine [Bentyl] 20 mg PO QID 04/20/17 [History] Gabapentin [Neurontin] 1,600 mg PO HS 04/20/17 [History] Gabapentin [Neurontin] 800 mg PO BID 04/20/17 [History] Insulin ASPART [Novolog Flexpen] 30 unit SQ DAILY 04/20/17 [History] Insulin Glargine,Hum.rec.anlog [Lantus Solostar] 35 unit SQ HS 04/20/17 [History ] Lisinopril-HCTZ 10-12.5 [Prinzide 10-12.5] 1 tab PO DAILY 04/20/17 [History] Simvastatin [Zocor] 40 mg PO DAILY 04/20/17 [History] Amitriptyline [Elavil] 10 mg PO HS 03/12/18 [History] Citalopram [CeleXA] 20 mg PO DAILY 03/12/18 [History] cefTRIAXone [Rocephin] 2,000 mg IVPB DAILY 14 Days #14 vial 03/22/18 [Rx] Allergies/Adverse Reactions: 3 Allergy/AdvReac Type Severity Reaction Status Date / Time No Known Allergies Allergy Verified 04/20/17 08:52 Certification: Further, I certify that my clinical findings support that this patient is homebound (i.e. absences from home require considerable and taxing effort and are for medical reasons or nondenominational services or infrequently or short duration when for other reasons) because: Homebound Reason: Patient requires assistance of a person or device to safely leave home Attestation: My signature below is to certify that this patient is under my care and that I, or nurse practitioner, or a physician's assistant director of security working with me, has a face-to -face encounter with this patient.
== END 2018-03-22 18:15 | disposition home health service (06) | DRG 380 ==
LOC: EMEROOARM 19:14 → 3ANU 19:14 → SUATTDRO 03-14 16:28
PROVIDERS: ADMIT Family Medicine; ATTEND Hospitalist

== ENCOUNTER 2019-12-12 17:05 | Inpatient (IN) ==
[2019-12-12] MEDS ORDERED: 0.9 % Sodium Chloride 1,000 ML IVC ONE ×2 (17:18→19:57)
[2019-12-12] MEDS ORDERED: Morphine Sulfate 2 MG/ML SYRINGE IVP ONE (17:20)
[2019-12-12] MEDS ORDERED: Ondansetron 4 MG/2 ML VIAL IVP ONE (17:20)
[2019-12-12] MEDS ORDERED: Isovue-370 500 ML BOTTLE IVP ONE (17:20)
[2019-12-12 18:13] LABS: VBG HCO3 27 mEq/L (21-27); VBG PCO2 44 mmHg (41-51); VBG PO2 40 mmHg (25-50)
[2019-12-12 18:15] LABS: Basophils % 0.1 %; Eosinophils % 0.2 %; Hemoglobin 11.8 g/dL (11.5-15.4); Immature Granulocytes % 0.6 % (0-4); Lymphocytes # 0.4 K/mcL (0.6-4.6); Lymphocytes % 3.5 %; Mean Corpuscular HGB Conc 33.7 g/dL (31.6-35.5); Mean Corpuscular Hemoglobin 28.6 pg (28.0-33.3); Mean Platelet Volume 9.5 fL (9.4-12.4); Monocytes # 0.4 K/mcL (0.0-1.3); Monocytes % 3.8 %; Neutrophils # 9.6 K/mcL (1.6-8.9); Platelet Count 204 K/mcL (140-400); Red Blood Count 4.12 M/mcL (3.82-4.97); Red Cell Distribution Width 12.4 % (11.5-14.5); Segmented Neutrophils % 91.8 %; White Blood Count 10.5 K/mcL (4.3-11.1)
[2019-12-12 18:18] LABS: INR 1.2; Prothrombin Time 13.6 Seconds (9.4-12.1)
[2019-12-12 18:36] LABS: Alanine Aminotransferase 11 Units/L (7-52); Albumin 3.7 g/dL (3.5-5.7); Albumin/Globulin Ratio 0.9 (1.1-2.2); Alkaline Phosphatase 103 Units/L (34-104); Aspartate Amino Transferase 13 Units/L (13-39); BUN/Creatinine Ratio 12 (6-26); Bilirubin,Direct 0.3 mg/dL (0.0-0.2); Bilirubin,Indirect 0.9 mg/dL (0.0-1.0); Bilirubin,Total 1.2 mg/dL (0.3-1.0); Blood Urea Nitrogen 10 mg/dL (6-20); Carbon Dioxide 27 mEq/L (23-29); Chloride 97 mEq/L (98-107); Glucose 207 mg/dL (70-105); Lipase 17 Units/L (11-82); Osmolality,Calculated 283 (280-300); Potassium 3.3 mEq/L (3.5-5.1); Sodium 134 mEq/L (136-145); Total Protein 7.7 g/dL (6.4-8.9); Troponin I < 0.03 ng/mL (< 0.04); eGFR For African Americans > 60 (> 60); eGFR For Non-African Americans > 60 (> 60)
[2019-12-12] MEDS ORDERED: Clindamycin 600 MG/50 ML 600 MG/50 ML IV.SOLN IVPB ONE (18:49)
[2019-12-12] MEDS ORDERED: levoFLOXacin 750 MG/150 ML 750 MG/150 ML BAG IVPB ONE (18:58)
[2019-12-12] MEDS ORDERED: Potassium Chloride 40 MEQ, Lidocaine 1% 2 ML in D5% in Water 500 ML IVPB ONE (19:57)
[2019-12-12 20:12] LABS: Bacteria,Urine Few per hpf (None-Few); Bilirubin,Urine Negative (Negative); Blood,Urine Negative (Negative); Clarity,Urine Clear (Clear); Color,Urine Colorless (Yellow); Glucose,Urine (UA) 300 mg/dL (Normal); Ketones,Urine Trace mg/dL (Negative); Leukocyte Esterase,Urine Negative (Negative); Mucus,Urine Few per lpf (None-Few); Nitrite,Urine Negative (Negative); Protein,Urine 50 mg/dL (Neg-Trace); RBC,Urine 0-3 per hpf (0-3); Specific Gravity,Urine > 1.030 (1.010-1.025); Squamous Epithelial Cell,Urine Few per hpf (None-Few); Urobilinogen,Urine Normal (Normal); WBC,Urine 0-3 per hpf (0-3)
[2019-12-12] MEDS ORDERED: Naloxone 0.4 MG/ML INJ IVP PRN (21:50)
[2019-12-12] MEDS ORDERED: *HR* OxyCODONE Immed Rel 5 MG TABLET PO PRN (21:50)
[2019-12-12] MEDS: 0.9 % Sodium Chloride 1,000 ML IVC SCH (22:35)
[2019-12-12] MEDS: *HR* Promethazine 25 MG/ML VIAL IVP PRN (22:47)
[2019-12-12] MEDS ORDERED: *HR* HYDROcodone/Acet 5/325 mg TABLET PO PRN (23:10)
[2019-12-12] MEDS ORDERED: INSULIN ASPART 45 UNIT SQ SCH (23:15)
[2019-12-12] MEDS ORDERED: D5% in Water 1,000 ML IVC PRN (23:42)
[2019-12-12] MEDS ORDERED: *HR* Dextrose 50 % in Water (Vial) 50 ML VIAL IVP PRN (23:42)
[2019-12-12] MEDS ORDERED: Dextrose Gel 15 GM/37.5 ML TUBE PO PRN ×2 (23:42)
[2019-12-13] MEDS: Insulin LISPRO 300 UNITS/3 ML VIAL SQ SCH ×5 (00:50→20:27)
[2019-12-13] MEDS: 0.9 % Sodium Chloride 1,000 ML IVC SCH (03:36)
[2019-12-13] MEDS: Clindamycin 600 MG/50 ML 600 MG/50 ML IV.SOLN IVPB SCH ×2 (03:37→11:24)
[2019-12-13] MEDS: *HR* Promethazine 25 MG/ML VIAL IVP PRN ×2 (06:01→20:33)
[2019-12-13 06:54] LABS: INR 1.2; Prothrombin Time 13.7 Seconds (9.4-12.1)
[2019-12-13 06:57] LABS: Basophils % 0.3 %; Eosinophils % 0.5 %; Hematocrit 31.1 % (35.3-44.9); Hemoglobin 10.1 g/dL (11.5-15.4); Immature Granulocytes % 0.5 % (0-4); Lymphocytes # 0.8 K/mcL (0.6-4.6); Lymphocytes % 10.8 %; Mean Corpuscular HGB Conc 32.5 g/dL (31.6-35.5); Mean Corpuscular Hemoglobin 28.5 pg (28.0-33.3); Mean Corpuscular Volume 87.6 fL (83.0-100.0); Mean Platelet Volume 9.9 fL (9.4-12.4); Monocytes # 0.5 K/mcL (0.0-1.3); Neutrophils # 5.9 K/mcL (1.6-8.9); Platelet Count 177 K/mcL (140-400); Red Blood Count 3.55 M/mcL (3.82-4.97); Red Cell Distribution Width 12.6 % (11.5-14.5); Segmented Neutrophils % 80.9 %; White Blood Count 7.3 K/mcL (4.3-11.1)
[2019-12-13 07:13] LABS: BUN/Creatinine Ratio 12 (6-26); Blood Urea Nitrogen 9 mg/dL (6-20); Calcium 8.2 mg/dL (8.6-10.3); Carbon Dioxide 26 mEq/L (23-29); Chloride 102 mEq/L (98-107); Glucose 152 mg/dL (70-105); Magnesium 1.6 mg/dL (1.6-2.6); Osmolality,Calculated 284 (280-300); Phosphorous 2.7 mg/dL (2.7-4.5); Potassium 3.7 mEq/L (3.5-5.1); Sodium 136 mEq/L (136-145); eGFR For African Americans > 60 (> 60); eGFR For Non-African Americans > 60 (> 60)
[2019-12-13] MEDS ORDERED: levoFLOXacin 750 MG/150 ML 750 MG/150 ML BAG IVPB SCH (09:00)
[2019-12-13] MEDS: *HR* Enoxaparin 40 MG/0.4 ML SYRINGE SQ SCH (09:09)
[2019-12-13] MEDS: Pregabalin 75 MG CAPSULE PO SCH ×3 (09:10→20:24)
[2019-12-13] MEDS: Ondansetron 4 MG/2 ML VIAL IVP PRN (10:55)
[2019-12-13] MEDS ORDERED: Insulin DETEMIR 100 UNIT/ML X5UNITS SQ ONE (11:14)
[2019-12-13] MEDS: Insulin DETEMIR 100 UNIT/ML X5UNITS SQ SCH ×2 (11:20→20:25)
[2019-12-13] MEDS ORDERED: Aminoglycoside Consult 1 EACH MC ONE (12:08)
[2019-12-13] MEDS ORDERED: *HR* OxyCODONE Immed Rel 5 MG TABLET PO PRN (14:06)
[2019-12-13] MEDS ORDERED: *HR* HYDROcodone/Acet 5/325 mg TABLET PO PRN (14:06)
[2019-12-13 15:27] LABS: Acinetobacter baumannii by PCR Not Detected (Not Detect); Candida albicans by PCR Not Detected (Not Detect); Candida glabrata by PCR Not Detected (Not Detect); Candida krusei by PCR Not Detected (Not Detect); Candida parapsilosis by PCR Not Detected (Not Detect); Candida tropicalis by PCR Not Detected (Not Detect); Enterobacter cloacae Cmplx PCR Not Detected (Not Detect); Enterobacteriaceae by PCR Not Detected (Not Detect); Enterococcus by PCR Not Detected (Not Detect); Escherichia coli by PCR Not Detected (Not Detect); Klebsiella oxytoca by PCR Not Detected (Not Detect); Klebsiella pneumoniae by PCR Not Detected (Not Detect); Proteus by PCR Not Detected (Not Detect); Pseudomonas aeruginosa by PCR Not Detected (Not Detect); Serratia marcescens by PCR Not Detected (Not Detect); Staphylococcus aureus by PCR Not Detected (Not Detect); Staphylococcus by PCR Not Detected (Not Detect); Streptococcus agalactiae(B)PCR Not Detected (Not Detect); Streptococcus by PCR DETECTED (Not Detect); Streptococcus pneumoniae PCR Not Detected (Not Detect); Streptococcus pyogenes (A) PCR Not Detected (Not Detect)
[2019-12-13] MEDS ORDERED: Vancomycin 1,500 MG/265 ML IV.SOLN IVPB SCH (16:00)
[2019-12-13] MEDS: Cefepime HCl 2,000 MG in Water for inj. (sterile) 20 ML IVP SCH (17:43)
[2019-12-14] MEDS: Cefepime HCl 2,000 MG in Water for inj. (sterile) 20 ML IVP SCH ×2 (06:39→18:41)
[2019-12-14] MEDS: Ondansetron 4 MG/2 ML VIAL IVP PRN (06:40)
[2019-12-14 07:02] LABS: Basophils % 0.6 %; Eosinophils % 0.6 %; Hematocrit 32.7 % (35.3-44.9); Hemoglobin 10.9 g/dL (11.5-15.4); Immature Granulocytes % 0.6 % (0-4); Lymphocytes # 0.9 K/mcL (0.6-4.6); Lymphocytes % 17.1 %; Mean Corpuscular HGB Conc 33.3 g/dL (31.6-35.5); Mean Corpuscular Hemoglobin 28.5 pg (28.0-33.3); Mean Corpuscular Volume 85.6 fL (83.0-100.0); Mean Platelet Volume 9.7 fL (9.4-12.4); Monocytes # 0.5 K/mcL (0.0-1.3); Monocytes % 10.4 %; Neutrophils # 3.7 K/mcL (1.6-8.9); Platelet Count 198 K/mcL (140-400); Red Blood Count 3.82 M/mcL (3.82-4.97); Red Cell Distribution Width 12.5 % (11.5-14.5); Segmented Neutrophils % 70.7 %; White Blood Count 5.2 K/mcL (4.3-11.1)
[2019-12-14 07:21] LABS: BUN/Creatinine Ratio 11 (6-26); Blood Urea Nitrogen 8 mg/dL (6-20); Calcium 8.7 mg/dL (8.6-10.3); Carbon Dioxide 26 mEq/L (23-29); Chloride 102 mEq/L (98-107); Glucose 152 mg/dL (70-105); Osmolality,Calculated 281 (280-300); Potassium 3.7 mEq/L (3.5-5.1); Sodium 135 mEq/L (136-145); eGFR For African Americans > 60 (> 60); eGFR For Non-African Americans > 60 (> 60)
[2019-12-14] MEDS: Insulin LISPRO 300 UNITS/3 ML VIAL SQ SCH ×3 (08:29→18:42)
[2019-12-14] MEDS: Insulin DETEMIR 100 UNIT/ML X5UNITS SQ SCH ×2 (08:30→21:10)
[2019-12-14] MEDS: *HR* Enoxaparin 40 MG/0.4 ML SYRINGE SQ SCH (08:31)
[2019-12-14] MEDS: Pregabalin 75 MG CAPSULE PO SCH ×3 (08:31→21:09)
[2019-12-14] MEDS: Sennosides/Docusate Sodium TABLET PO SCH ×2 (12:46→21:10)
[2019-12-14] MEDS: Acetaminophen 325 MG TABLET PO PRN ×2 (15:55→21:08)
[2019-12-15] MEDS: Acetaminophen 325 MG TABLET PO PRN (03:27)
[2019-12-15 05:15] LABS: Basophils % 0.7 %; Eosinophils # 0.1 K/mcL (0.0-0.6); Eosinophils % 1.9 %; Hemoglobin 11.1 g/dL (11.5-15.4); Immature Granulocytes % 0.5 % (0-4); Lymphocytes # 1.2 K/mcL (0.6-4.6); Lymphocytes % 27.8 %; Mean Corpuscular HGB Conc 32.6 g/dL (31.6-35.5); Mean Corpuscular Hemoglobin 28.4 pg (28.0-33.3); Mean Platelet Volume 9.7 fL (9.4-12.4); Monocytes # 0.4 K/mcL (0.0-1.3); Monocytes % 9.6 %; Neutrophils # 2.5 K/mcL (1.6-8.9); Platelet Count 228 K/mcL (140-400); Red Blood Count 3.91 M/mcL (3.82-4.97); Red Cell Distribution Width 12.7 % (11.5-14.5); Segmented Neutrophils % 59.5 %; White Blood Count 4.2 K/mcL (4.3-11.1)
[2019-12-15 05:37] LABS: BUN/Creatinine Ratio 13 (6-26); Blood Urea Nitrogen 10 mg/dL (6-20); Calcium 8.7 mg/dL (8.6-10.3); Carbon Dioxide 26 mEq/L (23-29); Chloride 101 mEq/L (98-107); Glucose 148 mg/dL (70-105); Osmolality,Calculated 282 (280-300); Potassium 3.2 mEq/L (3.5-5.1); Sodium 135 mEq/L (136-145); eGFR For African Americans > 60 (> 60); eGFR For Non-African Americans > 60 (> 60)
[2019-12-15] MEDS: Cefepime HCl 2,000 MG in Water for inj. (sterile) 20 ML IVP SCH ×2 (06:15→18:13)
[2019-12-15] MEDS: Sennosides/Docusate Sodium TABLET PO SCH ×2 (08:45→20:40)
[2019-12-15] MEDS: *HR* Enoxaparin 40 MG/0.4 ML SYRINGE SQ SCH (08:45)
[2019-12-15] MEDS: Pregabalin 75 MG CAPSULE PO SCH ×3 (08:45→20:40)
[2019-12-15] MEDS: Insulin DETEMIR 100 UNIT/ML X5UNITS SQ SCH ×2 (08:46→20:40)
[2019-12-15] MEDS: Insulin LISPRO 300 UNITS/3 ML VIAL SQ SCH ×3 (08:47→17:58)
[2019-12-15] MEDS: polyethylene glycoL 3350 17 GM POWD.PACK PO SCH (15:01)
[2019-12-15] MEDS ORDERED: Vancomycin 1,250 MG/262.5 ML IV.SOLN IVPB SCH (16:00)
[2019-12-15] MEDS: Vancomycin 1,500 MG/265 ML IV.SOLN IVPB SCH (16:36)
[2019-12-16 02:09] LABS: Basophils % 0.3 %; Eosinophils # 0.1 K/mcL (0.0-0.6); Eosinophils % 1.2 %; Hematocrit 34.2 % (35.3-44.9); Hemoglobin 11.2 g/dL (11.5-15.4); Immature Granulocytes % 0.6 % (0-4); Lymphocytes # 1.5 K/mcL (0.6-4.6); Lymphocytes % 23.6 %; Mean Corpuscular HGB Conc 32.7 g/dL (31.6-35.5); Mean Corpuscular Hemoglobin 28.1 pg (28.0-33.3); Mean Corpuscular Volume 85.7 fL (83.0-100.0); Mean Platelet Volume 9.6 fL (9.4-12.4); Monocytes # 0.5 K/mcL (0.0-1.3); Monocytes % 8.2 %; Neutrophils # 4.2 K/mcL (1.6-8.9); Platelet Count 236 K/mcL (140-400); Red Blood Count 3.99 M/mcL (3.82-4.97); Red Cell Distribution Width 12.6 % (11.5-14.5); Segmented Neutrophils % 66.1 %
[2019-12-16 02:10] LABS: White Blood Count 6.4 K/mcL (4.3-11.1)
[2019-12-16 02:25] LABS: Platelet Estimate Normal (Normal)
[2019-12-16 02:26] LABS: Reactive Lymphocytes Present (Not Present)
[2019-12-16 02:27] LABS: BUN/Creatinine Ratio 15 (6-26); Blood Urea Nitrogen 11 mg/dL (6-20); Calcium 8.6 mg/dL (8.6-10.3); Carbon Dioxide 26 mEq/L (23-29); Chloride 102 mEq/L (98-107); Glucose 157 mg/dL (70-105); Osmolality,Calculated 283 (280-300); Sodium 135 mEq/L (136-145); eGFR For African Americans > 60 (> 60); eGFR For Non-African Americans > 60 (> 60)
[2019-12-16] MEDS: Vancomycin 1,500 MG/265 ML IV.SOLN IVPB SCH ×2 (03:07→15:33)
[2019-12-16] MEDS: Ondansetron 4 MG/2 ML VIAL IVP PRN (03:11)
[2019-12-16] MEDS: Cefepime HCl 2,000 MG in Water for inj. (sterile) 20 ML IVP SCH ×2 (05:56→17:31)
[2019-12-16] MEDS: Pregabalin 75 MG CAPSULE PO SCH ×3 (08:35→22:04)
[2019-12-16] MEDS: Sennosides/Docusate Sodium TABLET PO SCH ×2 (08:35→22:03)
[2019-12-16] MEDS: polyethylene glycoL 3350 17 GM POWD.PACK PO SCH (08:35)
[2019-12-16] MEDS: *HR* Enoxaparin 40 MG/0.4 ML SYRINGE SQ SCH (08:35)
[2019-12-16] MEDS: Insulin DETEMIR 100 UNIT/ML X5UNITS SQ SCH ×2 (08:36→22:05)
[2019-12-16] MEDS: Insulin LISPRO 300 UNITS/3 ML VIAL SQ SCH ×3 (08:36→16:52)
[2019-12-16] MEDS ORDERED: Lidocaine -MPF 1% 5 ML AMPUL INFILT ONE (10:04)
[2019-12-16] MEDS ORDERED: Isovue-370 500 ML BOTTLE IVP ONE (10:22)
[2019-12-16] MEDS ORDERED: *HR* Midazolam HCl 2 MG/2 ML VIAL ONE ×2 (18:41→19:02)
[2019-12-16] MEDS ORDERED: Ondansetron 4 MG/2 ML VIAL ONE (18:58)
[2019-12-16] MEDS ORDERED: Acetaminophen 325 MG TABLET PO PRN (19:48)
[2019-12-16] MEDS ORDERED: *HR* Promethazine 25 MG/ML VIAL IVP PRN (19:48)
[2019-12-16] MEDS ORDERED: D5% in Water 1,000 ML IVC PRN (19:48)
[2019-12-16] MEDS ORDERED: Naloxone 0.4 MG/ML INJ IVP PRN (19:48)
[2019-12-16] MEDS ORDERED: Ondansetron 4 MG/2 ML VIAL IVP PRN (19:48)
[2019-12-16] MEDS ORDERED: *HR* Dextrose 50 % in Water (Vial) 50 ML VIAL IVP PRN (19:48)
[2019-12-16] MEDS ORDERED: *HR* OxyCODONE Immed Rel 5 MG TABLET PO PRN (19:48)
[2019-12-16] MEDS ORDERED: *HR* HYDROcodone/Acet 5/325 mg TABLET PO PRN (19:48)
[2019-12-16] MEDS ORDERED: Dextrose Gel 15 GM/37.5 ML TUBE PO PRN ×2 (19:48)
[2019-12-17 03:13] LABS: Basophils % 0.6 %; Eosinophils # 0.1 K/mcL (0.0-0.6); Eosinophils % 1.3 %; Hematocrit 33.9 % (35.3-44.9); Hemoglobin 11.2 g/dL (11.5-15.4); Immature Granulocytes % 0.8 % (0-4); Lymphocytes # 1.5 K/mcL (0.6-4.6); Lymphocytes % 21.5 %; Mean Corpuscular Volume 87.8 fL (83.0-100.0); Mean Platelet Volume 9.8 fL (9.4-12.4); Monocytes # 0.5 K/mcL (0.0-1.3); Monocytes % 7.6 %; Neutrophils # 4.8 K/mcL (1.6-8.9); Platelet Count 227 K/mcL (140-400); Red Blood Count 3.86 M/mcL (3.82-4.97); Red Cell Distribution Width 12.7 % (11.5-14.5); Segmented Neutrophils % 68.2 %; White Blood Count 7.1 K/mcL (4.3-11.1)
[2019-12-17 03:34] LABS: BUN/Creatinine Ratio 17 (6-26); Blood Urea Nitrogen 13 mg/dL (6-20); Calcium 8.6 mg/dL (8.6-10.3); Carbon Dioxide 27 mEq/L (23-29); Chloride 101 mEq/L (98-107); Glucose 219 mg/dL (70-105); Osmolality,Calculated 285 (280-300); Potassium 4.2 mEq/L (3.5-5.1); Sodium 134 mEq/L (136-145); eGFR For African Americans > 60 (> 60); eGFR For Non-African Americans > 60 (> 60)
[2019-12-17] MEDS: Vancomycin 1,500 MG/265 ML IV.SOLN IVPB SCH ×2 (03:38→16:15)
[2019-12-17] MEDS: *HR* Enoxaparin 40 MG/0.4 ML SYRINGE SQ SCH (06:00)
[2019-12-17] MEDS: Cefepime HCl 2,000 MG in Water for inj. (sterile) 20 ML IVP SCH ×2 (06:00→18:04)
[2019-12-17] MEDS: Insulin DETEMIR 100 UNIT/ML X5UNITS SQ SCH ×2 (08:02→20:57)
[2019-12-17] MEDS: Insulin LISPRO 300 UNITS/3 ML VIAL SQ SCH ×3 (08:03→18:04)
[2019-12-17] MEDS: Pregabalin 75 MG CAPSULE PO SCH ×3 (08:44→20:57)
[2019-12-17] MEDS: polyethylene glycoL 3350 17 GM POWD.PACK PO SCH (08:45)
[2019-12-17] MEDS: Sennosides/Docusate Sodium TABLET PO SCH ×2 (08:45→20:56)
[2019-12-18] MEDS: Vancomycin 1,500 MG/265 ML IV.SOLN IVPB SCH ×2 (04:25→17:15)
[2019-12-18 05:04] LABS: BUN/Creatinine Ratio 20 (6-26); Blood Urea Nitrogen 14 mg/dL (6-20); Calcium 9.1 mg/dL (8.6-10.3); Carbon Dioxide 28 mEq/L (23-29); Chloride 101 mEq/L (98-107); Glucose 206 mg/dL (70-105); Osmolality,Calculated 284 (280-300); Potassium 4.3 mEq/L (3.5-5.1); Sodium 134 mEq/L (136-145); eGFR For African Americans > 60 (> 60); eGFR For Non-African Americans > 60 (> 60)
[2019-12-18] MEDS: *HR* Enoxaparin 40 MG/0.4 ML SYRINGE SQ SCH (06:03)
[2019-12-18] MEDS: Cefepime HCl 2,000 MG in Water for inj. (sterile) 20 ML IVP SCH ×2 (06:03→19:21)
[2019-12-18] MEDS: Pregabalin 75 MG CAPSULE PO SCH ×3 (07:31→20:39)
[2019-12-18] MEDS: Insulin LISPRO 300 UNITS/3 ML VIAL SQ SCH ×3 (07:31→17:33)
[2019-12-18] MEDS: Insulin DETEMIR 100 UNIT/ML X5UNITS SQ SCH ×2 (07:31→20:39)
[2019-12-18] MEDS: polyethylene glycoL 3350 17 GM POWD.PACK PO SCH (07:32)
[2019-12-18] MEDS: Sennosides/Docusate Sodium TABLET PO SCH ×2 (07:32→20:38)
[2019-12-18] MEDS ORDERED: Perflutren Lipid Microsphere 1.3 ML in 0.9 % Sodium Chloride 8.7 ML IVP PRN (11:15)
[2019-12-19] MEDS: Vancomycin 1,500 MG/265 ML IV.SOLN IVPB SCH ×2 (03:51→15:48)
[2019-12-19] MEDS: *HR* Enoxaparin 40 MG/0.4 ML SYRINGE SQ SCH (05:20)
[2019-12-19] MEDS: Cefepime HCl 2,000 MG in Water for inj. (sterile) 20 ML IVP SCH ×2 (05:20→17:38)
[2019-12-19] MEDS: Pregabalin 75 MG CAPSULE PO SCH ×2 (08:54→15:47)
[2019-12-19] MEDS: Insulin DETEMIR 100 UNIT/ML X5UNITS SQ SCH (08:54)
[2019-12-19] MEDS: Insulin LISPRO 300 UNITS/3 ML VIAL SQ SCH ×3 (08:54→17:38)
[2019-12-19] MEDS: polyethylene glycoL 3350 17 GM POWD.PACK PO SCH (08:55)
[2019-12-19] MEDS: Sennosides/Docusate Sodium TABLET PO SCH (08:55)
[2019-12-19 16:06] VITALS: BP 126/84
== END 2019-12-19 19:08 | disposition home health service (06) | DRG 710 ==
LOC: 3NENU 17:05 → EMEROOARM 17:05 → SUATTDRO 20:19 → 3NENU 21:43 → SUATTDRO 12-13 15:09
PROVIDERS: ADMIT Student in an Organized Health Care Education/Training Program; ATTEND Internal Medicine

== ENCOUNTER 2020-04-25 18:19 | Inpatient (IN) ==
[2020-04-25] MEDS ORDERED: Piperacillin/Tazobactam 3.375 GM in Water for inj. (sterile) 20 ML IVP ONE (20:36)
[2020-04-25] MEDS ORDERED: Vancomycin 1,500 MG/265 ML IV.SOLN IVPB ONE (20:36)
[2020-04-25] MEDS ORDERED: 0.9 % Sodium Chloride 1,000 ML IVC ONE (20:36)
[2020-04-25 21:28] LABS: Basophils % 0.2 %; Eosinophils % 0.4 %; Immature Granulocytes % 0.4 % (0-4); Lymphocytes # 1.9 K/mcL (0.6-4.6); Lymphocytes % 18.4 %; Mean Corpuscular HGB Conc 33.3 g/dL (31.6-35.5); Mean Corpuscular Hemoglobin 28.3 pg (28.0-33.3); Mean Platelet Volume 10.1 fL (9.4-12.4); Monocytes # 0.6 K/mcL (0.0-1.3); Neutrophils # 7.7 K/mcL (1.6-8.9); Platelet Count 199 K/mcL (140-400); Red Blood Count 4.59 M/mcL (3.82-4.97); Red Cell Distribution Width 14.5 % (11.5-14.5); Segmented Neutrophils % 74.6 %; White Blood Count 10.4 K/mcL (4.3-11.1)
[2020-04-25 21:35] LABS: INR 1.1; Prothrombin Time 12.5 Seconds (9.4-12.1)
[2020-04-25 21:49] LABS: Alanine Aminotransferase 16 Units/L (7-52); Albumin 4.5 g/dL (3.5-5.7); Albumin/Globulin Ratio 1.4 (1.1-2.2); Alkaline Phosphatase 103 Units/L (34-104); Aspartate Amino Transferase 15 Units/L (13-39); BUN/Creatinine Ratio 18 (6-26); Blood Urea Nitrogen 16 mg/dL (6-20); Calcium 9.5 mg/dL (8.6-10.3); Carbon Dioxide 24 mEq/L (23-29); Chloride 105 mEq/L (98-107); Globulin 3.3 g/dL (2.4-3.5); Glucose 70 mg/dL (70-105); Osmolality,Calculated 288 (280-300); Potassium 3.1 mEq/L (3.5-5.1); Sodium 139 mEq/L (136-145); Total Protein 7.8 g/dL (6.4-8.9); eGFR For African Americans > 60 (> 60); eGFR For Non-African Americans > 60 (> 60)
[2020-04-25 21:50] LABS: Troponin I < 0.03 ng/mL (< 0.04)
[2020-04-26] MEDS ORDERED: Acetaminophen 325 MG TABLET PO PRN ×2 (00:23→19:45)
[2020-04-26] MEDS ORDERED: *HR* OxyCODONE Immed Rel 5 MG TABLET PO PRN ×2 (00:23→19:45)
[2020-04-26] MEDS ORDERED: Naloxone 0.4 MG/ML INJ IVP PRN ×2 (00:31→19:45)
[2020-04-26] MEDS ORDERED: *HR* HYDROcodone/Acet 5/325 mg TABLET PO PRN (00:31)
[2020-04-26] MEDS ORDERED: D5% in Water 1,000 ML IVC PRN ×2 (00:37→19:45)
[2020-04-26] MEDS ORDERED: *HR* Dextrose 50 % in Water (Vial) 50 ML VIAL IVP PRN ×2 (00:37→19:45)
[2020-04-26] MEDS ORDERED: Dextrose Gel 15 GM/37.5 ML TUBE PO PRN ×4 (00:37→19:45)
[2020-04-26] MEDS ORDERED: Potassium Chloride Elixir 20 MEQ/15 ML UDC PO ONE (01:28)
[2020-04-26 04:56] LABS: Hematocrit 33.7 % (35.3-44.9); Mean Corpuscular HGB Conc 32.9 g/dL (31.6-35.5); Mean Corpuscular Hemoglobin 28.4 pg (28.0-33.3); Mean Corpuscular Volume 86.2 fL (83.0-100.0); Mean Platelet Volume 10.5 fL (9.4-12.4); Platelet Count 169 K/mcL (140-400); Red Blood Count 3.91 M/mcL (3.82-4.97); Red Cell Distribution Width 14.3 % (11.5-14.5); White Blood Count 6.7 K/mcL (4.3-11.1)
[2020-04-26 04:58] LABS: Hemoglobin 11.1 g/dL (11.5-15.4)
[2020-04-26 05:15] LABS: BUN/Creatinine Ratio 18 (6-26); Blood Urea Nitrogen 15 mg/dL (6-20); Calcium 8.4 mg/dL (8.6-10.3); Carbon Dioxide 24 mEq/L (23-29); Chloride 109 mEq/L (98-107); Chol/HDL Ratio 4.5 (0-4.9); Cholesterol 122 mg/dL (< 200); Glucose 172 mg/dL (70-105); HDL Cholesterol 27 mg/dL (40-59); LDL Cholesterol,Calculated 63 mg/dL (< 100); Magnesium 1.6 mg/dL (1.6-2.6); Osmolality,Calculated 295 (280-300); Potassium 3.6 mEq/L (3.5-5.1); Sodium 140 mEq/L (136-145); Triglycerides 160 mg/dL (< 150); eGFR For African Americans > 60 (> 60); eGFR For Non-African Americans > 60 (> 60)
[2020-04-26] MEDS: *HR* Heparin 5,000 UNIT/ML VIAL SQ SCH ×3 (05:44→21:21)
[2020-04-26] MEDS: Piperacillin/Tazobactam 3.375 GM in 0.9 % Sodium Chloride Mini Bag 100 ML IVPB SCH ×2 (07:56→16:19)
[2020-04-26] MEDS: Insulin LISPRO 300 UNITS/3 ML VIAL SQ SCH ×4 (08:04→21:24)
[2020-04-26] MEDS ORDERED: Vancomycin 1,250 MG/262.5 ML IV.SOLN IVPB SCH ×2 (09:00→14:00)
[2020-04-26] MEDS ORDERED: Famotidine 20 MG TABLET PO SCH (09:00)
[2020-04-26] MEDS ORDERED: Furosemide 40 MG TABLET PO SCH (16:22)
[2020-04-26] MEDS ORDERED: lisinopriL 5 MG TABLET PO SCH (16:30)
[2020-04-26] MEDS ORDERED: Lidocaine 1% 20 ML MDV ONE (18:18)
[2020-04-26] MEDS ORDERED: Vancomycin 1,000 MG VIAL ONE (18:23)
[2020-04-26] MEDS ORDERED: *HR* Midazolam HCl 2 MG/2 ML VIAL ONE (18:35)
[2020-04-26] MEDS ORDERED: *HR* FentaNYL (PF) 100 MCG/2 ML VIAL ONE (18:35)
[2020-04-26] MEDS ORDERED: Insulin LISPRO 300 UNITS/3 ML VIAL SQ SCH (21:00)
[2020-04-26] MEDS: Famotidine 20 MG TABLET PO SCH (21:21)
[2020-04-26] MEDS: *HR* HYDROcodone/Acet 5/325 mg TABLET PO PRN (22:08)
[2020-04-27] MEDS: Piperacillin/Tazobactam 3.375 GM in 0.9 % Sodium Chloride Mini Bag 100 ML IVPB SCH ×4 (00:28→23:11)
[2020-04-27] MEDS: Vancomycin 1,250 MG/262.5 ML IV.SOLN IVPB SCH ×2 (02:36→14:49)
[2020-04-27] MEDS: *HR* Heparin 5,000 UNIT/ML VIAL SQ SCH ×3 (06:59→20:27)
[2020-04-27 07:12] LABS: Hematocrit 39.3 % (35.3-44.9); Hemoglobin 13.3 g/dL (11.5-15.4); Mean Corpuscular HGB Conc 33.8 g/dL (31.6-35.5); Mean Corpuscular Volume 85.8 fL (83.0-100.0); Mean Platelet Volume 10.2 fL (9.4-12.4); Platelet Count 165 K/mcL (140-400); Red Blood Count 4.58 M/mcL (3.82-4.97); Red Cell Distribution Width 13.9 % (11.5-14.5); White Blood Count 7.5 K/mcL (4.3-11.1)
[2020-04-27 07:33] LABS: BUN/Creatinine Ratio 18 (6-26); Blood Urea Nitrogen 13 mg/dL (6-20); Calcium 9.1 mg/dL (8.6-10.3); Carbon Dioxide 23 mEq/L (23-29); Chloride 104 mEq/L (98-107); Glucose 211 mg/dL (70-105); Osmolality,Calculated 286 (280-300); Sodium 135 mEq/L (136-145); eGFR For African Americans > 60 (> 60); eGFR For Non-African Americans > 60 (> 60)
[2020-04-27] MEDS ORDERED: Pregabalin 75 MG CAPSULE PO SCH (09:00)
[2020-04-27] MEDS: Insulin LISPRO 300 UNITS/3 ML VIAL SQ SCH ×4 (10:01→19:34)
[2020-04-27] MEDS: Furosemide 40 MG TABLET PO SCH ×2 (10:02→16:50)
[2020-04-27] MEDS: Pregabalin 75 MG CAPSULE PO SCH ×3 (10:02→20:26)
[2020-04-27] MEDS: lisinopriL 5 MG TABLET PO SCH (10:02)
[2020-04-27] MEDS: Famotidine 20 MG TABLET PO SCH ×2 (10:03→20:26)
[2020-04-27] MEDS ORDERED: Ondansetron 4 MG/2 ML VIAL IVP PRN (10:11)
[2020-04-27] MEDS: 0.9 % Sodium Chloride 1,000 ML IVC SCH ×2 (11:16→23:10)
[2020-04-27] MEDS: *HR* HYDROcodone/Acet 5/325 mg TABLET PO PRN (11:16)
[2020-04-28 02:27] LABS: BUN/Creatinine Ratio 13 (6-26); Blood Urea Nitrogen 13 mg/dL (6-20); Calcium 8.1 mg/dL (8.6-10.3); Carbon Dioxide 25 mEq/L (23-29); Chloride 106 mEq/L (98-107); Glucose 190 mg/dL (70-105); Osmolality,Calculated 293 (280-300); Potassium 3.2 mEq/L (3.5-5.1); Sodium 139 mEq/L (136-145); eGFR For African Americans > 60 (> 60); eGFR For Non-African Americans 58 (> 60)
[2020-04-28] MEDS: Vancomycin 1,250 MG/262.5 ML IV.SOLN IVPB SCH ×2 (02:29→14:29)
[2020-04-28] MEDS: *HR* Heparin 5,000 UNIT/ML VIAL SQ SCH ×2 (06:10→14:18)
[2020-04-28] MEDS: Famotidine 20 MG TABLET PO SCH (08:39)
[2020-04-28] MEDS: lisinopriL 5 MG TABLET PO SCH (08:39)
[2020-04-28] MEDS: Pregabalin 75 MG CAPSULE PO SCH ×2 (08:39→14:19)
[2020-04-28] MEDS: Furosemide 40 MG TABLET PO SCH (08:39)
[2020-04-28] MEDS: Piperacillin/Tazobactam 3.375 GM in 0.9 % Sodium Chloride Mini Bag 100 ML IVPB SCH ×2 (08:40→17:21)
[2020-04-28] MEDS: Insulin LISPRO 300 UNITS/3 ML VIAL SQ SCH ×2 (09:27→14:28)
[2020-04-28] MEDS: *HR* HYDROcodone/Acet 5/325 mg TABLET PO PRN (09:27)
[2020-04-28 10:33] VITALS: BP 135/80
== END 2020-04-28 17:45 | disposition home or self-care (01) | DRG 364 ==
LOC: 3NENU 18:19 → EMEROOARM 18:19 → SUATTDRO 23:38 → 3NENU 04-26 00:43
PROVIDERS: ADMIT Student in an Organized Health Care Education/Training Program; ATTEND Internal Medicine

== ENCOUNTER 2021-01-15 08:27 | Inpatient (IN) ==
[2021-01-15] MEDS ORDERED: D5% in Water 1,000 ML IVC PRN (12:54)
[2021-01-15] MEDS ORDERED: *HR* HYDROcodone/Acet 5/325 mg TABLET PO PRN (12:54)
[2021-01-15] MEDS ORDERED: *HR* Dextrose 50 % in Water (Vial) 50 ML VIAL IVP PRN (12:54)
[2021-01-15] MEDS ORDERED: Dextrose Gel 15 GM/37.5 ML TUBE PO PRN ×2 (12:54)
[2021-01-15] MEDS ORDERED: Naloxone 0.4 MG/ML INJ IVP PRN (12:54)
[2021-01-15] MEDS ORDERED: Acetaminophen 325 MG TABLET PO PRN (12:54)
[2021-01-15] MEDS ORDERED: Ondansetron 4 MG/2 ML VIAL IVP PRN (12:54)
[2021-01-15 14:02] LABS: Basophils % 0.7 %; Eosinophils # 0.1 K/mcL (0.0-0.6); Hematocrit 41.3 % (35.3-44.9); Hemoglobin 13.9 g/dL (11.5-15.4); Immature Granulocytes % 0.5 % (0-4); Lymphocytes # 1.6 K/mcL (0.6-4.6); Lymphocytes % 26.9 %; Mean Corpuscular HGB Conc 33.7 g/dL (31.6-35.5); Mean Corpuscular Hemoglobin 29.6 pg (28.0-33.3); Mean Corpuscular Volume 87.9 fL (83.0-100.0); Mean Platelet Volume 10.7 fL (9.4-12.4); Monocytes # 0.4 K/mcL (0.0-1.3); Monocytes % 5.9 %; Neutrophils # 3.9 K/mcL (1.6-8.9); Platelet Count 198 K/mcL (140-400); Red Cell Distribution Width 13.1 % (11.5-14.5); White Blood Count 6.1 K/mcL (4.3-11.1)
[2021-01-15 14:30] LABS: BUN/Creatinine Ratio 18 (6-26); Blood Urea Nitrogen 16 mg/dL (6-20); Calcium 9.4 mg/dL (8.6-10.3); Carbon Dioxide 26 mEq/L (23-29); Chloride 108 mEq/L (98-107); Glucose 174 mg/dL (70-105); Osmolality,Calculated 299 (280-300); Potassium 4.2 mEq/L (3.5-5.1); Sodium 142 mEq/L (136-145); eGFR For African Americans > 60 (> 60); eGFR For Non-African Americans > 60 (> 60)
[2021-01-15] MEDS: Piperacillin/Tazobactam 3.375 GM in 0.9 % Sodium Chloride Mini Bag 100 ML IVPB SCH (15:09)
[2021-01-15 15:49] LABS: Adenovirus DETECTED (Not Detect); Bordetella Pertussis Not Detected (Not Detect); Chlamydophila pneumoniae Not Detected (Not Detect); Coronavirus 229E Not Detected (Not Detect); Coronavirus HKU1 Not Detected (Not Detect); Coronavirus NL63 Not Detected (Not Detect); Coronavirus OC43 Not Detected (Not Detect); Human Metapneumovirus Not Detected (Not Detect); Human Rhinovirus/Enterovirus Not Detected (Not Detect); Influenza A Subtype 2009 H1 Not Detected (Not Detect); Influenza B Not Detected (Not Detect); Mycoplasma pneumoniae Not Detected (Not Detect); Parainfluenza Virus 1 Not Detected (Not Detect); Parainfluenza Virus 2 Not Detected (Not Detect); Parainfluenza Virus 3 Not Detected (Not Detect); Parainfluenza Virus 4 Not Detected (Not Detect); Respiratory Syncytial Virus Not Detected (Not Detect); SARS-CoV-2 Not Detected (Not Detect)
[2021-01-15] MEDS: Insulin LISPRO 300 UNITS/3 ML VIAL SUBQ SCH (17:48)
[2021-01-15] MEDS ORDERED: Insulin DETEMIR 100 UNIT/ML X5UNITS SUBQ SCH (21:00)
[2021-01-16] MEDS: Piperacillin/Tazobactam 3.375 GM in 0.9 % Sodium Chloride Mini Bag 100 ML IVPB SCH ×4 (00:07→15:41)
[2021-01-16 03:17] LABS: Basophils % 0.7 %; Eosinophils # 0.1 K/mcL (0.0-0.6); Eosinophils % 1.5 %; Hematocrit 38.8 % (35.3-44.9); Hemoglobin 13.1 g/dL (11.5-15.4); Immature Granulocytes % 0.3 % (0-4); Lymphocytes # 2.1 K/mcL (0.6-4.6); Lymphocytes % 35.7 %; Mean Corpuscular HGB Conc 33.8 g/dL (31.6-35.5); Mean Corpuscular Hemoglobin 29.3 pg (28.0-33.3); Mean Corpuscular Volume 86.8 fL (83.0-100.0); Mean Platelet Volume 10.3 fL (9.4-12.4); Monocytes # 0.4 K/mcL (0.0-1.3); Monocytes % 6.3 %; Neutrophils # 3.3 K/mcL (1.6-8.9); Platelet Count 181 K/mcL (140-400); Red Blood Count 4.47 M/mcL (3.82-4.97); Segmented Neutrophils % 55.5 %; White Blood Count 5.9 K/mcL (4.3-11.1)
[2021-01-16 03:32] LABS: BUN/Creatinine Ratio 22 (6-26); Blood Urea Nitrogen 18 mg/dL (6-20); Calcium 8.9 mg/dL (8.6-10.3); Carbon Dioxide 22 mEq/L (23-29); Chloride 109 mEq/L (98-107); Glucose 102 mg/dL (70-105); Osmolality,Calculated 290 (280-300); Potassium 3.8 mEq/L (3.5-5.1); Sodium 139 mEq/L (136-145); eGFR For African Americans > 60 (> 60); eGFR For Non-African Americans > 60 (> 60)
[2021-01-16] MEDS ORDERED: Vancomycin 1,000 MG, 0.9 % Sodium Chloride 1,000 ML IR ONE ×2 (06:00→08:11)
[2021-01-16] MEDS ORDERED: *HR* Midazolam HCl 2 MG/2 ML VIAL ONE (07:11)
[2021-01-16] MEDS ORDERED: Lidocaine -MPF 2% 2 ML VIAL ONE (07:11)
[2021-01-16] MEDS ORDERED: *HR* FentaNYL (PF) 100 MCG/2 ML VIAL ONE (07:11)
[2021-01-16] MEDS ORDERED: Vancomycin 1,000 MG VIAL ONE (07:21)
[2021-01-16] MEDS ORDERED: Bupivacaine/EPI 1:200k 0.25% 50 ML VIAL ONE (07:21)
[2021-01-16] MEDS ORDERED: Ondansetron 4 MG/2 ML VIAL IVP PRN ×3 (07:37→08:11)
[2021-01-16] MEDS ORDERED: *HR* FentaNYL (PF) 100 MCG/2 ML VIAL IVP PRN ×2 (07:37→08:11)
[2021-01-16] MEDS ORDERED: Albuterol 2.5 MG/3 ML NEBULIZER IH PRN ×2 (07:37→08:11)
[2021-01-16] MEDS ORDERED: Naloxone 0.4 MG/ML INJ IVP PRN ×3 (07:37→08:11)
[2021-01-16] MEDS ORDERED: Nitroglycerin 0.4 MG TAB.SUBL SL PRN ×2 (07:37→08:11)
[2021-01-16] MEDS ORDERED: Lidocaine 1% 20 ML MDV ONE (08:02)
[2021-01-16] MEDS ORDERED: *HR* Propofol 200 MG/20 ML VIAL IVP ONE ×2 (08:10→08:28)
[2021-01-16] MEDS ORDERED: *HR* HYDROcodone/Acet 5/325 mg TABLET PO PRN (08:11)
[2021-01-16] MEDS ORDERED: Dextrose Gel 15 GM/37.5 ML TUBE PO PRN ×2 (08:11)
[2021-01-16] MEDS ORDERED: Acetaminophen 325 MG TABLET PO PRN (08:11)
[2021-01-16] MEDS ORDERED: *HR* Dextrose 50 % in Water (Vial) 50 ML VIAL IVP PRN (08:11)
[2021-01-16] MEDS ORDERED: D5% in Water 1,000 ML IVC PRN (08:11)
[2021-01-16] MEDS ORDERED: EPHEDrine 50 MG/ML VIAL ONE (08:30)
[2021-01-16] MEDS: Insulin LISPRO 300 UNITS/3 ML VIAL SUBQ SCH ×3 (09:12→15:42)
[2021-01-16] MEDS: amLODIPine 5 MG TABLET PO SCH (11:58)
[2021-01-16] MEDS: lisinopriL 5 MG TABLET PO SCH (11:59)
[2021-01-16] MEDS: Vancomycin 1,500 MG/265 ML IV.SOLN IVPB SCH (16:10)
[2021-01-16] MEDS ORDERED: Prochlorperazine 10 MG/2 ML VIAL IVP PRN (20:29)
[2021-01-16] MEDS: Pregabalin 75 MG CAPSULE PO SCH (20:41)
[2021-01-16] MEDS: Insulin DETEMIR 100 UNIT/ML X5UNITS SUBQ SCH (21:49)
[2021-01-16] MEDS: *HR* Heparin 5,000 UNIT/ML VIAL SQ SCH (21:49)
[2021-01-17] MEDS: Piperacillin/Tazobactam 3.375 GM in 0.9 % Sodium Chloride Mini Bag 100 ML IVPB SCH ×3 (01:24→15:38)
[2021-01-17 03:00] LABS: Basophils % 0.3 %; Eosinophils % 0.2 %; Hematocrit 37.7 % (35.3-44.9); Hemoglobin 12.8 g/dL (11.5-15.4); Immature Granulocytes % 0.3 % (0-4); Lymphocytes # 0.8 K/mcL (0.6-4.6); Lymphocytes % 8.4 %; Mean Corpuscular Hemoglobin 29.4 pg (28.0-33.3); Mean Corpuscular Volume 86.7 fL (83.0-100.0); Mean Platelet Volume 10.7 fL (9.4-12.4); Monocytes # 0.6 K/mcL (0.0-1.3); Monocytes % 6.3 %; Neutrophils # 8.2 K/mcL (1.6-8.9); Platelet Count 184 K/mcL (140-400); Red Blood Count 4.35 M/mcL (3.82-4.97); Red Cell Distribution Width 12.8 % (11.5-14.5); Segmented Neutrophils % 84.5 %
[2021-01-17 03:01] LABS: White Blood Count 9.7 K/mcL (4.3-11.1)
[2021-01-17 03:12] LABS: BUN/Creatinine Ratio 20 (6-26); Blood Urea Nitrogen 17 mg/dL (6-20); Calcium 8.7 mg/dL (8.6-10.3); Carbon Dioxide 26 mEq/L (23-29); Chloride 106 mEq/L (98-107); Glucose 176 mg/dL (70-105); Osmolality,Calculated 292 (280-300); Potassium 3.8 mEq/L (3.5-5.1); Sodium 138 mEq/L (136-145); eGFR For African Americans > 60 (> 60); eGFR For Non-African Americans > 60 (> 60)
[2021-01-17] MEDS: Vancomycin 1,500 MG/265 ML IV.SOLN IVPB SCH ×2 (05:07→19:00)
[2021-01-17] MEDS: *HR* Heparin 5,000 UNIT/ML VIAL SQ SCH ×3 (05:09→22:17)
[2021-01-17] MEDS: Pregabalin 75 MG CAPSULE PO SCH ×3 (09:58→20:24)
[2021-01-17] MEDS: lisinopriL 5 MG TABLET PO SCH (09:58)
[2021-01-17] MEDS: amLODIPine 5 MG TABLET PO SCH (09:58)
[2021-01-17] MEDS: Insulin LISPRO 300 UNITS/3 ML VIAL SUBQ SCH ×3 (10:01→17:12)
[2021-01-17] MEDS: Insulin DETEMIR 100 UNIT/ML X5UNITS SUBQ SCH (20:24)
[2021-01-18 00:54] LABS: Basophils % 0.3 %; Eosinophils # 0.1 K/mcL (0.0-0.6); Eosinophils % 1.2 %; Hematocrit 35.7 % (35.3-44.9); Hemoglobin 12.1 g/dL (11.5-15.4); Immature Granulocytes % 0.4 % (0-4); Lymphocytes # 1.5 K/mcL (0.6-4.6); Lymphocytes % 20.4 %; Mean Corpuscular HGB Conc 33.9 g/dL (31.6-35.5); Mean Corpuscular Hemoglobin 29.7 pg (28.0-33.3); Mean Corpuscular Volume 87.5 fL (83.0-100.0); Mean Platelet Volume 10.8 fL (9.4-12.4); Monocytes # 0.6 K/mcL (0.0-1.3); Monocytes % 8.6 %; Neutrophils # 5.1 K/mcL (1.6-8.9); Platelet Count 149 K/mcL (140-400); Red Blood Count 4.08 M/mcL (3.82-4.97); Segmented Neutrophils % 69.1 %; White Blood Count 7.4 K/mcL (4.3-11.1)
[2021-01-18 01:13] LABS: BUN/Creatinine Ratio 20 (6-26); Blood Urea Nitrogen 22 mg/dL (6-20); Calcium 8.8 mg/dL (8.6-10.3); Carbon Dioxide 25 mEq/L (23-29); Chloride 104 mEq/L (98-107); Glucose 160 mg/dL (70-105); Osmolality,Calculated 289 (280-300); Potassium 3.4 mEq/L (3.5-5.1); Sodium 136 mEq/L (136-145); eGFR For African Americans > 60 (> 60); eGFR For Non-African Americans 51 (> 60)
[2021-01-18] MEDS: Vancomycin 1,500 MG/265 ML IV.SOLN IVPB SCH ×2 (04:03→07:34)
[2021-01-18] MEDS: Piperacillin/Tazobactam 3.375 GM in 0.9 % Sodium Chloride Mini Bag 100 ML IVPB SCH ×2 (04:03→10:19)
[2021-01-18] MEDS: *HR* Heparin 5,000 UNIT/ML VIAL SQ SCH (05:22)
[2021-01-18 08:23] VITALS: BP 115/74; PULSE 81; TEMP 98.2; O2SAT 95
[2021-01-18] MEDS: Pregabalin 75 MG CAPSULE PO SCH (09:20)
[2021-01-18] MEDS: amLODIPine 5 MG TABLET PO SCH (09:20)
[2021-01-18] MEDS: Insulin LISPRO 300 UNITS/3 ML VIAL SUBQ SCH (09:20)
[2021-01-18] MEDS: lisinopriL 5 MG TABLET PO SCH (09:20)
== END 2021-01-18 11:52 | disposition home or self-care (01) | DRG 952 ==
LOC: 3ANU → SUATTDRO 12:03
PROVIDERS: ADMIT Internal Medicine; ATTEND Family Medicine

== ENCOUNTER 2021-02-02 15:14 | Observation (INO) ==
[2021-02-02] MEDS ORDERED: 0.9 % Sodium Chloride 1,000 ML IVC ONE (16:26)
[2021-02-02 17:03] LABS: Basophils % 0.5 %; Eosinophils # 0.2 K/mcL (0.0-0.6); Eosinophils % 2.8 %; Hematocrit 35.5 % (35.3-44.9); Immature Granulocytes % 0.4 % (0-4); Lymphocytes % 12.5 %; Mean Corpuscular HGB Conc 33.8 g/dL (31.6-35.5); Mean Corpuscular Hemoglobin 29.3 pg (28.0-33.3); Mean Corpuscular Volume 86.6 fL (83.0-100.0); Mean Platelet Volume 9.8 fL (9.4-12.4); Monocytes # 0.6 K/mcL (0.0-1.3); Monocytes % 7.6 %; Neutrophils # 5.9 K/mcL (1.6-8.9); Platelet Count 229 K/mcL (140-400); Red Cell Distribution Width 12.2 % (11.5-14.5); Segmented Neutrophils % 76.2 %; White Blood Count 7.8 K/mcL (4.3-11.1)
[2021-02-02 17:14] LABS: INR 1.1; Prothrombin Time 12.7 Seconds (9.4-12.1)
[2021-02-02 17:17] LABS: Activated Partial Thrombo Time 29.4 Seconds (26.0-36.0)
[2021-02-02 17:25] LABS: Alanine Aminotransferase 11 Units/L (7-52); Albumin 3.8 g/dL (3.5-5.7); Albumin/Globulin Ratio 1.1 (1.1-2.2); Alkaline Phosphatase 91 Units/L (34-104); Aspartate Amino Transferase 13 Units/L (13-39); BUN/Creatinine Ratio 14 (6-26); Bilirubin,Direct 0.1 mg/dL (0.0-0.2); Bilirubin,Indirect 0.5 mg/dL (0.0-1.0); Bilirubin,Total 0.6 mg/dL (0.3-1.0); Blood Urea Nitrogen 15 mg/dL (6-20); C-Reactive Protein 77 mg/L (Less than 10); Calcium 9.5 mg/dL (8.6-10.3); Carbon Dioxide 24 mEq/L (23-29); Chloride 103 mEq/L (98-107); Globulin 3.5 g/dL (2.4-3.5); Glucose 128 mg/dL (70-105); Magnesium 1.6 mg/dL (1.6-2.6); Osmolality,Calculated 286 (280-300); Phosphorous 2.7 mg/dL (2.7-4.5); Potassium 3.7 mEq/L (3.5-5.1); Sodium 137 mEq/L (136-145); Total Protein 7.3 g/dL (6.4-8.9); Troponin I < 0.03 ng/mL (< 0.04); eGFR For African Americans > 60 (> 60); eGFR For Non-African Americans 54 (> 60)
[2021-02-02] MEDS ORDERED: Piperacillin/Tazobactam 3.375 GM in 0.9 % Sodium Chloride Mini Bag 100 ML IVPB ONE (18:20)
[2021-02-02] MEDS ORDERED: Vancomycin 1,500 MG/265 ML IV.SOLN IVPB ONE (18:20)
[2021-02-02] MEDS: 0.9 % Sodium Chloride 1,000 ML IVC SCH (20:58)
[2021-02-02] MEDS ORDERED: Naloxone 0.4 MG/ML INJ IVP PRN (21:56)
[2021-02-02] MEDS ORDERED: tiZANidine 4 MG TABLET PO ONE (22:00)
[2021-02-02] MEDS ORDERED: Prochlorperazine 10 MG/2 ML VIAL IVP PRN (22:00)
[2021-02-02] MEDS ORDERED: *HR* HYDROmorphone 2 MG TABLET PO ONE (22:00)
[2021-02-02] MEDS ORDERED: Dextrose Gel 15 GM/37.5 ML TUBE PO PRN ×2 (22:13)
[2021-02-02] MEDS ORDERED: *HR* Dextrose 50 % in Water (Vial) 50 ML VIAL IVP PRN (22:13)
[2021-02-02] MEDS ORDERED: D5% in Water 1,000 ML IVC PRN (22:13)
[2021-02-02] MEDS: Insulin LISPRO 300 UNITS/3 ML VIAL SUBQ SCH (22:28)
[2021-02-02 22:50] LABS: Bilirubin,Urine Negative (Negative); Blood,Urine Negative (Negative); Clarity,Urine Clear (Clear); Color,Urine Light-Yellow (Yellow); Glucose,Urine (UA) Normal (Normal); Ketones,Urine Negative (Negative); Leukocyte Esterase,Urine Small (Negative); Mucus,Urine Few per lpf (None-Few); Nitrite,Urine Positive (Negative); Protein,Urine Trace mg/dL (Neg-Trace); RBC,Urine 0-3 per hpf (0-3); Squamous Epithelial Cell,Urine Few per hpf (None-Few); Urobilinogen,Urine Normal (Normal); WBC,Urine 30-50 per hpf (0-3)
[2021-02-02] MEDS: Famotidine 20 MG TABLET PO SCH (23:41)
[2021-02-03] MEDS: Piperacillin/Tazobactam 3.375 GM in 0.9 % Sodium Chloride Mini Bag 100 ML IVPB SCH ×3 (02:50→18:29)
[2021-02-03 05:52] LABS: Hematocrit 29.2 % (35.3-44.9); Mean Corpuscular HGB Conc 34.6 g/dL (31.6-35.5); Mean Corpuscular Hemoglobin 30.3 pg (28.0-33.3); Mean Corpuscular Volume 87.7 fL (83.0-100.0); Mean Platelet Volume 10.2 fL (9.4-12.4); Platelet Count 209 K/mcL (140-400); Red Blood Count 3.33 M/mcL (3.82-4.97); Red Cell Distribution Width 12.4 % (11.5-14.5); White Blood Count 6.3 K/mcL (4.3-11.1)
[2021-02-03 05:54] LABS: Estimated Average Glucose 137 mg/dl; Hemoglobin 10.1 g/dL (11.5-15.4); Hemoglobin A1C 6.4 %
[2021-02-03 06:00] LABS: INR 1.1
[2021-02-03 06:02] LABS: Activated Partial Thrombo Time 28.1 Seconds (26.0-36.0)
[2021-02-03 06:08] LABS: BUN/Creatinine Ratio 13 (6-26); Blood Urea Nitrogen 12 mg/dL (6-20); Carbon Dioxide 22 mEq/L (23-29); Chloride 108 mEq/L (98-107); Chol/HDL Ratio 6.3 (0-4.9); Cholesterol 126 mg/dL (< 200); Glucose 212 mg/dL (70-105); HDL Cholesterol 20 mg/dL (40-59); LDL Cholesterol,Calculated 82 mg/dL (< 100); Osmolality,Calculated 288 (280-300); Potassium 3.6 mEq/L (3.5-5.1); Sodium 136 mEq/L (136-145); Triglycerides 120 mg/dL (< 150); eGFR For African Americans > 60 (> 60); eGFR For Non-African Americans > 60 (> 60)
[2021-02-03] MEDS: Insulin LISPRO 300 UNITS/3 ML VIAL SUBQ SCH ×4 (07:50→20:16)
[2021-02-03] MEDS ORDERED: lisinopriL 5 MG TABLET PO SCH (09:00)
[2021-02-03] MEDS: Ondansetron 4 MG/2 ML VIAL IVP PRN (10:19)
[2021-02-03] MEDS: Pregabalin 75 MG CAPSULE PO SCH ×3 (10:21→20:07)
[2021-02-03] MEDS: Famotidine 20 MG TABLET PO SCH ×2 (10:21→20:07)
[2021-02-03] MEDS: Pantoprazole 40 MG VIAL IVP SCH (10:28)
[2021-02-03] MEDS: 0.9 % Sodium Chloride 1,000 ML IVC SCH (10:38)
[2021-02-03] MEDS: Vancomycin 1,250 MG/262.5 ML IV.SOLN IVPB SCH ×2 (11:32→23:12)
[2021-02-04] MEDS: Piperacillin/Tazobactam 3.375 GM in 0.9 % Sodium Chloride Mini Bag 100 ML IVPB SCH ×3 (03:29→23:33)
[2021-02-04 07:11] LABS: BUN/Creatinine Ratio 13 (6-26); Blood Urea Nitrogen 13 mg/dL (6-20); Calcium 8.6 mg/dL (8.6-10.3); Carbon Dioxide 25 mEq/L (23-29); Chloride 108 mEq/L (98-107); Glucose 168 mg/dL (70-105); Osmolality,Calculated 290 (280-300); Potassium 4.3 mEq/L (3.5-5.1); Sodium 138 mEq/L (136-145); eGFR For African Americans > 60 (> 60); eGFR For Non-African Americans 57 (> 60)
[2021-02-04] MEDS: Famotidine 20 MG TABLET PO SCH ×2 (08:29→21:22)
[2021-02-04] MEDS: Pregabalin 75 MG CAPSULE PO SCH ×3 (08:29→21:22)
[2021-02-04] MEDS: Pantoprazole 40 MG VIAL IVP SCH (08:29)
[2021-02-04] MEDS: Insulin LISPRO 300 UNITS/3 ML VIAL SUBQ SCH ×4 (08:30→21:23)
[2021-02-04 12:36] LABS: Hematocrit 32.5 % (35.3-44.9); Hemoglobin 10.8 g/dL (11.5-15.4); Mean Corpuscular HGB Conc 33.2 g/dL (31.6-35.5); Mean Corpuscular Hemoglobin 29.5 pg (28.0-33.3); Mean Corpuscular Volume 88.8 fL (83.0-100.0); Mean Platelet Volume 10.4 fL (9.4-12.4); Platelet Count 225 K/mcL (140-400); Red Blood Count 3.66 M/mcL (3.82-4.97); Red Cell Distribution Width 12.4 % (11.5-14.5); White Blood Count 5.3 K/mcL (4.3-11.1)
[2021-02-04] MEDS: Vancomycin 1,500 MG/265 ML IV.SOLN IVPB SCH ×2 (14:57→23:43)
[2021-02-04] MEDS: lisinopriL 5 MG TABLET PO SCH (16:57)
[2021-02-04] MEDS: *HR* Heparin 5,000 UNIT/ML VIAL SQ SCH (16:57)
[2021-02-04] MEDS: Acetaminophen 325 MG TABLET PO PRN (21:34)
[2021-02-04 23:01] LABS: Hemoglobin 11.1 g/dL (11.5-15.4)
[2021-02-05 04:42] LABS: Hematocrit 30.4 % (35.3-44.9); Hemoglobin 10.4 g/dL (11.5-15.4); Mean Corpuscular HGB Conc 34.2 g/dL (31.6-35.5); Mean Corpuscular Hemoglobin 29.8 pg (28.0-33.3); Mean Corpuscular Volume 87.1 fL (83.0-100.0); Mean Platelet Volume 9.9 fL (9.4-12.4); Platelet Count 221 K/mcL (140-400); Red Blood Count 3.49 M/mcL (3.82-4.97); Red Cell Distribution Width 12.2 % (11.5-14.5); White Blood Count 4.9 K/mcL (4.3-11.1)
[2021-02-05 04:56] LABS: BUN/Creatinine Ratio 12 (6-26); Blood Urea Nitrogen 13 mg/dL (6-20); Calcium 8.6 mg/dL (8.6-10.3); Carbon Dioxide 27 mEq/L (23-29); Chloride 107 mEq/L (98-107); Glucose 176 mg/dL (70-105); Osmolality,Calculated 292 (280-300); Potassium 3.6 mEq/L (3.5-5.1); Sodium 139 mEq/L (136-145); eGFR For African Americans > 60 (> 60); eGFR For Non-African Americans 53 (> 60)
[2021-02-05] MEDS: Ondansetron 4 MG/2 ML VIAL IVP PRN ×3 (06:08→23:06)
[2021-02-05] MEDS: Piperacillin/Tazobactam 3.375 GM in 0.9 % Sodium Chloride Mini Bag 100 ML IVPB SCH ×3 (06:14→23:06)
[2021-02-05] MEDS: *HR* Heparin 5,000 UNIT/ML VIAL SQ SCH ×2 (06:15→17:20)
[2021-02-05] MEDS: Acetaminophen 325 MG TABLET PO PRN (06:15)
[2021-02-05] MEDS: Famotidine 20 MG TABLET PO SCH ×2 (07:54→22:00)
[2021-02-05] MEDS: Pregabalin 75 MG CAPSULE PO SCH ×3 (07:54→22:00)
[2021-02-05] MEDS: lisinopriL 5 MG TABLET PO SCH (07:54)
[2021-02-05] MEDS: Pantoprazole 40 MG VIAL IVP SCH (07:55)
[2021-02-05] MEDS: Insulin LISPRO 300 UNITS/3 ML VIAL SUBQ SCH ×4 (09:30→22:02)
[2021-02-05] MEDS: Vancomycin 1,500 MG/265 ML IV.SOLN IVPB SCH (11:37)
[2021-02-06 05:37] LABS: Basophils % 0.5 %; Eosinophils # 0.1 K/mcL (0.0-0.6); Hematocrit 33.9 % (35.3-44.9); Hemoglobin 11.6 g/dL (11.5-15.4); Immature Granulocytes % 0.7 % (0-4); Lymphocytes # 1.3 K/mcL (0.6-4.6); Lymphocytes % 21.3 %; Mean Corpuscular HGB Conc 34.2 g/dL (31.6-35.5); Mean Corpuscular Hemoglobin 29.7 pg (28.0-33.3); Mean Corpuscular Volume 86.9 fL (83.0-100.0); Mean Platelet Volume 9.6 fL (9.4-12.4); Monocytes # 0.5 K/mcL (0.0-1.3); Monocytes % 7.9 %; Platelet Count 234 K/mcL (140-400); Red Cell Distribution Width 12.3 % (11.5-14.5); Segmented Neutrophils % 67.6 %
[2021-02-06 05:49] LABS: Potassium 3.7 mEq/L (3.5-5.1)
[2021-02-06] MEDS: Piperacillin/Tazobactam 3.375 GM in 0.9 % Sodium Chloride Mini Bag 100 ML IVPB SCH ×2 (06:18→16:09)
[2021-02-06] MEDS: *HR* Heparin 5,000 UNIT/ML VIAL SQ SCH (06:18)
[2021-02-06] MEDS: Ondansetron 4 MG/2 ML VIAL IVP PRN (06:32)
[2021-02-06] MEDS: Pregabalin 75 MG CAPSULE PO SCH ×2 (07:35→16:09)
[2021-02-06] MEDS: Famotidine 20 MG TABLET PO SCH (07:35)
[2021-02-06] MEDS: lisinopriL 5 MG TABLET PO SCH (07:35)
[2021-02-06 07:36] VITALS: O2SAT 95
[2021-02-06] MEDS: Insulin LISPRO 300 UNITS/3 ML VIAL SUBQ SCH ×2 (07:36→12:27)
[2021-02-06] MEDS ORDERED: Vancomycin 1,250 MG/262.5 ML IV.SOLN IVPB SCH (08:00)
[2021-02-06 11:06] VITALS: BP 154/82; PULSE 83; TEMP 98.3
== END 2021-02-06 18:32 | disposition home health service (06) ==
LOC: 3NENU 15:14 → EMEROOARM 15:14 → SUATTDRO 18:49 → 3NENU 20:04
PROVIDERS: ADMIT Internal Medicine; ATTEND Internal Medicine

== ENCOUNTER 2021-03-14 13:36 | Inpatient (IN) ==
[2021-03-14] MEDS ORDERED: Isovue-370 500 ML BOTTLE IVP ONE (15:05)
[2021-03-14] MEDS ORDERED: Piperacillin/Tazobactam 3.375 GM in 0.9 % Sodium Chloride Mini Bag 100 ML IVPB ONE (15:05)
[2021-03-14] MEDS ORDERED: Vancomycin 1,250 MG/262.5 ML IV.SOLN IVPB ONE (15:05)
[2021-03-14 15:37] LABS: Basophils % 0.4 %; Eosinophils # 0.1 K/mcL (0.0-0.6); Eosinophils % 0.8 %; Hematocrit 33.3 % (35.3-44.9); Immature Granulocytes % 0.4 % (0-4); Lymphocytes # 1.7 K/mcL (0.6-4.6); Lymphocytes % 22.1 %; Mean Corpuscular Hemoglobin 28.9 pg (28.0-33.3); Mean Corpuscular Volume 87.6 fL (83.0-100.0); Mean Platelet Volume 9.8 fL (9.4-12.4); Monocytes # 0.5 K/mcL (0.0-1.3); Monocytes % 6.9 %; Neutrophils # 5.5 K/mcL (1.6-8.9); Platelet Count 242 K/mcL (140-400); Red Cell Distribution Width 12.5 % (11.5-14.5); Segmented Neutrophils % 69.4 %; White Blood Count 7.8 K/mcL (4.3-11.1)
[2021-03-14] MEDS ORDERED: Piperacillin/Tazobactam 3.375 GM VIAL ONE (15:50)
[2021-03-14 15:51] LABS: BUN/Creatinine Ratio 13 (6-26); Blood Urea Nitrogen 12 mg/dL (6-20); C-Reactive Protein 82 mg/L (Less than 10); Carbon Dioxide 26 mEq/L (23-29); Chloride 104 mEq/L (98-107); Glucose 111 mg/dL (70-105); Osmolality,Calculated 284 (280-300); Potassium 3.4 mEq/L (3.5-5.1); Sodium 137 mEq/L (136-145); eGFR For African Americans > 60 (> 60); eGFR For Non-African Americans > 60 (> 60)
[2021-03-14] MEDS ORDERED: Clindamycin 600 MG/50 ML 600 MG/50 ML IV.SOLN IVPB ONE (16:42)
[2021-03-14] MEDS ORDERED: *HR* OxyCODONE Immed Rel 5 MG TABLET PO PRN (17:26)
[2021-03-14] MEDS ORDERED: Mag Hydrox/Al Hydrox/Simeth 30 ML UDC PO PRN (17:26)
[2021-03-14] MEDS ORDERED: *HR* HYDROcodone/Acet 5/325 mg TABLET PO PRN (17:26)
[2021-03-14] MEDS ORDERED: Naloxone 0.4 MG/ML INJ IVP PRN (17:26)
[2021-03-14] MEDS ORDERED: Ondansetron ODT 4 MG TAB.RAPDIS SL PRN (17:26)
[2021-03-14] MEDS ORDERED: Melatonin 3 MG TABLET PO PRN (17:26)
[2021-03-14] MEDS ORDERED: Acetaminophen 325 MG TABLET PO PRN (17:26)
[2021-03-14] MEDS: Insulin DETEMIR 100 UNIT/ML X5UNITS SUBQ SCH (22:19)
[2021-03-14] MEDS: Pregabalin 75 MG CAPSULE PO SCH (22:48)
[2021-03-14] MEDS: Clindamycin 600 MG/50 ML 600 MG/50 ML IV.SOLN IVPB SCH (23:55)
[2021-03-15] MEDS: Piperacillin/Tazobactam 3.375 GM in 0.9 % Sodium Chloride Mini Bag 100 ML IVPB SCH ×3 (00:49→17:12)
[2021-03-15 02:50] LABS: BUN/Creatinine Ratio 16 (6-26); Blood Urea Nitrogen 14 mg/dL (6-20); Calcium 8.8 mg/dL (8.6-10.3); Carbon Dioxide 22 mEq/L (23-29); Chloride 107 mEq/L (98-107); Glucose 184 mg/dL (70-105); Osmolality,Calculated 289 (280-300); Potassium 3.4 mEq/L (3.5-5.1); Sodium 137 mEq/L (136-145); eGFR For African Americans > 60 (> 60); eGFR For Non-African Americans > 60 (> 60)
[2021-03-15 04:04] LABS: Basophils % 0.4 %; Eosinophils # 0.1 K/mcL (0.0-0.6); Eosinophils % 1.9 %; Hematocrit 30.4 % (35.3-44.9); Immature Granulocytes % 0.4 % (0-4); Lymphocytes # 1.2 K/mcL (0.6-4.6); Lymphocytes % 23.1 %; Mean Corpuscular HGB Conc 32.9 g/dL (31.6-35.5); Mean Corpuscular Hemoglobin 29.6 pg (28.0-33.3); Mean Corpuscular Volume 89.9 fL (83.0-100.0); Mean Platelet Volume 10.4 fL (9.4-12.4); Monocytes # 0.4 K/mcL (0.0-1.3); Monocytes % 7.1 %; Neutrophils # 3.6 K/mcL (1.6-8.9); Platelet Count 217 K/mcL (140-400); Red Blood Count 3.38 M/mcL (3.82-4.97); Red Cell Distribution Width 12.3 % (11.5-14.5); Segmented Neutrophils % 67.1 %; White Blood Count 5.3 K/mcL (4.3-11.1)
[2021-03-15] MEDS ORDERED: Vancomycin 1,250 MG/262.5 ML IV.SOLN IVPB SCH (05:00)
[2021-03-15] MEDS: Clindamycin 600 MG/50 ML 600 MG/50 ML IV.SOLN IVPB SCH ×2 (07:45→17:11)
[2021-03-15] MEDS: Pregabalin 75 MG CAPSULE PO SCH ×3 (07:45→22:03)
[2021-03-15] MEDS: Insulin DETEMIR 100 UNIT/ML X5UNITS SUBQ SCH ×2 (07:45→22:05)
[2021-03-15] MEDS ORDERED: Ondansetron 4 MG/2 ML VIAL IVP PRN ×2 (10:42→15:18)
[2021-03-15] MEDS ORDERED: *HR* FentaNYL (PF) 100 MCG/2 ML VIAL IVP PRN (10:42)
[2021-03-15] MEDS ORDERED: *HR* HYDROmorphone (PF) 1 MG/ML SYRINGE IVP PRN (11:06)
[2021-03-15] MEDS ORDERED: *HR* Midazolam HCl 2 MG/2 ML VIAL ONE (14:51)
[2021-03-15] MEDS ORDERED: *HR* FentaNYL (PF) 100 MCG/2 ML VIAL ONE (14:51)
[2021-03-15] MEDS ORDERED: Lidocaine -MPF 2% 5 ML VIAL ONE (14:51)
[2021-03-15] MEDS ORDERED: Bupivacaine/EPI 1:200k 0.25% 50 ML VIAL ONE (14:59)
[2021-03-15] MEDS ORDERED: Naloxone 0.4 MG/ML INJ IVP PRN (15:18)
[2021-03-15] MEDS ORDERED: Melatonin 3 MG TABLET PO PRN (15:18)
[2021-03-15] MEDS ORDERED: Clindamycin 600 MG/50 ML 600 MG/50 ML IV.SOLN IVPB ONE (15:18)
[2021-03-15] MEDS ORDERED: Acetaminophen 325 MG TABLET PO PRN (15:18)
[2021-03-15] MEDS ORDERED: Mag Hydrox/Al Hydrox/Simeth 30 ML UDC PO PRN (15:18)
[2021-03-15] MEDS ORDERED: *HR* HYDROcodone/Acet 5/325 mg TABLET PO PRN (15:18)
[2021-03-15] MEDS ORDERED: Ondansetron ODT 4 MG TAB.RAPDIS SL PRN (15:18)
[2021-03-15] MEDS: Vancomycin 1,250 MG/262.5 ML IV.SOLN IVPB SCH (18:09)
[2021-03-15] MEDS ORDERED: *HR* Promethazine 25 MG/ML VIAL IM ONE (22:50)
[2021-03-16] MEDS ORDERED: Acetaminophen IV 500 MG/50 ML BAG IVPB PRN (00:51)
[2021-03-16] MEDS ORDERED: Prochlorperazine 10 MG/2 ML VIAL IVP PRN (00:53)
[2021-03-16] MEDS: Piperacillin/Tazobactam 3.375 GM in 0.9 % Sodium Chloride Mini Bag 100 ML IVPB SCH ×3 (00:54→15:41)
[2021-03-16] MEDS: Clindamycin 600 MG/50 ML 600 MG/50 ML IV.SOLN IVPB SCH (00:54)
[2021-03-16 05:00] LABS: Basophils % 0.4 %; Eosinophils % 0.3 %; Hematocrit 32.7 % (35.3-44.9); Hemoglobin 10.9 g/dL (11.5-15.4); Immature Granulocytes % 0.5 % (0-4); Lymphocytes # 0.7 K/mcL (0.6-4.6); Lymphocytes % 8.4 %; Mean Corpuscular HGB Conc 33.3 g/dL (31.6-35.5); Mean Corpuscular Hemoglobin 29.1 pg (28.0-33.3); Mean Corpuscular Volume 87.2 fL (83.0-100.0); Monocytes # 0.4 K/mcL (0.0-1.3); Monocytes % 5.5 %; Neutrophils # 6.5 K/mcL (1.6-8.9); Platelet Count 258 K/mcL (140-400); Red Blood Count 3.75 M/mcL (3.82-4.97); Red Cell Distribution Width 12.3 % (11.5-14.5); Segmented Neutrophils % 84.9 %; White Blood Count 7.7 K/mcL (4.3-11.1)
[2021-03-16 05:11] LABS: BUN/Creatinine Ratio 13 (6-26); Blood Urea Nitrogen 14 mg/dL (6-20); Calcium 8.6 mg/dL (8.6-10.3); Carbon Dioxide 23 mEq/L (23-29); Chloride 105 mEq/L (98-107); Glucose 190 mg/dL (70-105); Osmolality,Calculated 290 (280-300); Sodium 137 mEq/L (136-145); eGFR For African Americans > 60 (> 60); eGFR For Non-African Americans 55 (> 60)
[2021-03-16] MEDS: Vancomycin 1,250 MG/262.5 ML IV.SOLN IVPB SCH ×2 (05:20→17:27)
[2021-03-16] MEDS: lisinopriL 5 MG TABLET PO SCH (08:04)
[2021-03-16] MEDS: Pregabalin 75 MG CAPSULE PO SCH ×3 (08:04→20:49)
[2021-03-16] MEDS: Insulin DETEMIR 100 UNIT/ML X5UNITS SUBQ SCH ×2 (08:08→20:49)
[2021-03-16] MEDS: *HR* OxyCODONE Immed Rel 5 MG TABLET PO PRN (20:27)
[2021-03-17] MEDS: Piperacillin/Tazobactam 3.375 GM in 0.9 % Sodium Chloride Mini Bag 100 ML IVPB SCH ×4 (00:56→23:12)
[2021-03-17] MEDS: *HR* OxyCODONE Immed Rel 5 MG TABLET PO PRN (02:15)
[2021-03-17] MEDS: Vancomycin 1,250 MG/262.5 ML IV.SOLN IVPB SCH ×2 (05:50→17:49)
[2021-03-17 08:09] LABS: Basophils % 0.5 %; Eosinophils # 0.1 K/mcL (0.0-0.6); Eosinophils % 2.2 %; Hematocrit 32.1 % (35.3-44.9); Hemoglobin 10.5 g/dL (11.5-15.4); Immature Granulocytes % 0.5 % (0-4); Lymphocytes # 1.2 K/mcL (0.6-4.6); Lymphocytes % 21.8 %; Mean Corpuscular HGB Conc 32.7 g/dL (31.6-35.5); Mean Corpuscular Volume 88.7 fL (83.0-100.0); Monocytes # 0.5 K/mcL (0.0-1.3); Monocytes % 8.2 %; Neutrophils # 3.7 K/mcL (1.6-8.9); Platelet Count 249 K/mcL (140-400); Red Blood Count 3.62 M/mcL (3.82-4.97); Red Cell Distribution Width 12.6 % (11.5-14.5); Segmented Neutrophils % 66.8 %; White Blood Count 5.5 K/mcL (4.3-11.1)
[2021-03-17 08:58] LABS: BUN/Creatinine Ratio 14 (6-26); Blood Urea Nitrogen 14 mg/dL (6-20); Calcium 8.8 mg/dL (8.6-10.3); Carbon Dioxide 23 mEq/L (23-29); Chloride 106 mEq/L (98-107); Glucose 153 mg/dL (70-105); Osmolality,Calculated 288 (280-300); Potassium 4.2 mEq/L (3.5-5.1); Sodium 137 mEq/L (136-145); eGFR For African Americans > 60 (> 60); eGFR For Non-African Americans 59 (> 60)
[2021-03-17] MEDS: lisinopriL 5 MG TABLET PO SCH (10:10)
[2021-03-17] MEDS: Insulin DETEMIR 100 UNIT/ML X5UNITS SUBQ SCH ×2 (10:10→19:53)
[2021-03-17] MEDS: Pregabalin 75 MG CAPSULE PO SCH ×3 (10:10→19:52)
[2021-03-17] MEDS: *HR* Heparin 5,000 UNIT/ML VIAL SQ SCH ×2 (15:20→19:53)
[2021-03-18] MEDS: Vancomycin 1,250 MG/262.5 ML IV.SOLN IVPB SCH ×2 (05:14→16:17)
[2021-03-18] MEDS: *HR* Heparin 5,000 UNIT/ML VIAL SQ SCH ×3 (05:15→22:14)
[2021-03-18] MEDS: lisinopriL 5 MG TABLET PO SCH (07:54)
[2021-03-18] MEDS: Piperacillin/Tazobactam 3.375 GM in 0.9 % Sodium Chloride Mini Bag 100 ML IVPB SCH ×3 (07:55→16:16)
[2021-03-18] MEDS: Pregabalin 75 MG CAPSULE PO SCH ×3 (07:55→22:14)
[2021-03-18] MEDS: Insulin DETEMIR 100 UNIT/ML X5UNITS SUBQ SCH ×2 (07:55→22:19)
[2021-03-18 07:58] LABS: Basophils % 0.8 %; Eosinophils % 3.2 %; Hematocrit 32.4 % (35.3-44.9); Hemoglobin 10.8 g/dL (11.5-15.4); Immature Granulocytes % 0.6 % (0-4); Lymphocytes % 29.1 %; Mean Corpuscular HGB Conc 33.3 g/dL (31.6-35.5); Mean Corpuscular Hemoglobin 29.4 pg (28.0-33.3); Mean Corpuscular Volume 88.3 fL (83.0-100.0); Mean Platelet Volume 9.9 fL (9.4-12.4); Monocytes % 7.3 %; Platelet Count 260 K/mcL (140-400); Red Blood Count 3.67 M/mcL (3.82-4.97); Red Cell Distribution Width 12.4 % (11.5-14.5); White Blood Count 5.3 K/mcL (4.3-11.1)
[2021-03-18 07:59] LABS: Eosinophils # 0.2 K/mcL (0.0-0.6); Lymphocytes # 1.6 K/mcL (0.6-4.6); Monocytes # 0.4 K/mcL (0.0-1.3); Neutrophils # 3.1 K/mcL (1.6-8.9)
[2021-03-18 08:16] LABS: BUN/Creatinine Ratio 13 (6-26); Blood Urea Nitrogen 13 mg/dL (6-20); Calcium 9.1 mg/dL (8.6-10.3); Carbon Dioxide 26 mEq/L (23-29); Chloride 106 mEq/L (98-107); Glucose 98 mg/dL (70-105); Osmolality,Calculated 288 (280-300); Potassium 3.8 mEq/L (3.5-5.1); Sodium 139 mEq/L (136-145); eGFR For African Americans > 60 (> 60); eGFR For Non-African Americans 56 (> 60)
[2021-03-19] MEDS: Piperacillin/Tazobactam 3.375 GM in 0.9 % Sodium Chloride Mini Bag 100 ML IVPB SCH (00:28)
[2021-03-19 05:00] LABS: Hematocrit 32.2 % (35.3-44.9); Hemoglobin 10.8 g/dL (11.5-15.4); Mean Corpuscular HGB Conc 33.5 g/dL (31.6-35.5); Mean Corpuscular Hemoglobin 29.1 pg (28.0-33.3); Mean Corpuscular Volume 86.8 fL (83.0-100.0); Mean Platelet Volume 9.5 fL (9.4-12.4); Platelet Count 255 K/mcL (140-400); Red Blood Count 3.71 M/mcL (3.82-4.97); Red Cell Distribution Width 12.3 % (11.5-14.5); White Blood Count 5.5 K/mcL (4.3-11.1)
[2021-03-19 05:08] LABS: BUN/Creatinine Ratio 12 (6-26); Blood Urea Nitrogen 12 mg/dL (6-20); Carbon Dioxide 29 mEq/L (23-29); Chloride 104 mEq/L (98-107); Glucose 167 mg/dL (70-105); Osmolality,Calculated 290 (280-300); Potassium 3.6 mEq/L (3.5-5.1); Sodium 138 mEq/L (136-145); eGFR For African Americans > 60 (> 60); eGFR For Non-African Americans 55 (> 60)
[2021-03-19] MEDS: *HR* Heparin 5,000 UNIT/ML VIAL SQ SCH ×3 (05:31→22:31)
[2021-03-19] MEDS ORDERED: Lidocaine -MPF 1% 5 ML AMPUL INFILT ONE (08:23)
[2021-03-19] MEDS: lisinopriL 5 MG TABLET PO SCH (08:32)
[2021-03-19] MEDS: Pregabalin 75 MG CAPSULE PO SCH ×3 (08:32→22:30)
[2021-03-19] MEDS: Insulin DETEMIR 100 UNIT/ML X5UNITS SUBQ SCH ×2 (08:33→22:34)
[2021-03-19] MEDS: metroNIDAZOLE 500 MG TABLET PO SCH ×2 (15:51→22:30)
[2021-03-20] MEDS: *HR* Heparin 5,000 UNIT/ML VIAL SQ SCH (04:53)
[2021-03-20 05:31] LABS: Hematocrit 33.4 % (35.3-44.9); Hemoglobin 11.2 g/dL (11.5-15.4); Mean Corpuscular HGB Conc 33.5 g/dL (31.6-35.5); Mean Corpuscular Hemoglobin 29.4 pg (28.0-33.3); Mean Corpuscular Volume 87.7 fL (83.0-100.0); Mean Platelet Volume 9.6 fL (9.4-12.4); Platelet Count 260 K/mcL (140-400); Red Blood Count 3.81 M/mcL (3.82-4.97); Red Cell Distribution Width 12.3 % (11.5-14.5); White Blood Count 6.5 K/mcL (4.3-11.1)
[2021-03-20 06:22] LABS: BUN/Creatinine Ratio 14 (6-26); Blood Urea Nitrogen 13 mg/dL (6-20); Calcium 9.2 mg/dL (8.6-10.3); Carbon Dioxide 28 mEq/L (23-29); Chloride 104 mEq/L (98-107); Glucose 133 mg/dL (70-105); Osmolality,Calculated 288 (280-300); Sodium 138 mEq/L (136-145); Vancomycin,Trough 17 mcg/mL (5-10); eGFR For African Americans > 60 (> 60); eGFR For Non-African Americans > 60 (> 60)
[2021-03-20] MEDS: Insulin DETEMIR 100 UNIT/ML X5UNITS SUBQ SCH (08:49)
[2021-03-20] MEDS: Pregabalin 75 MG CAPSULE PO SCH (08:49)
[2021-03-20] MEDS: metroNIDAZOLE 500 MG TABLET PO SCH (08:49)
[2021-03-20] MEDS: lisinopriL 5 MG TABLET PO SCH (08:49)
[2021-03-20 11:45] VITALS: BP 133/84; PULSE 82; TEMP 97.4; O2SAT 96
== END 2021-03-20 13:28 | disposition home health service (06) | DRG 314 ==
LOC: 4WAOSI 13:36 → EMEROOARM 13:36 → 4WAOSI 18:13 → SUATTDRO 21:29
PROVIDERS: ADMIT Family Medicine; ATTEND Internal Medicine

== ENCOUNTER 2021-05-20 16:38 | Inpatient (IN) ==
[2021-05-20] MEDS ORDERED: Isovue-370 500 ML BOTTLE IVP ONE (21:40)
[2021-05-20 22:01] LABS: Basophils # 0.1 K/mcL (0.0-0.2); Basophils % 0.4 %; Eosinophils # 0.1 K/mcL (0.0-0.6); Eosinophils % 0.5 %; Hematocrit 37.5 % (35.3-44.9); Hemoglobin 12.5 g/dL (11.5-15.4); Immature Granulocytes % 0.7 % (0-4); Lymphocytes # 1.5 K/mcL (0.6-4.6); Lymphocytes % 11.2 %; Mean Corpuscular HGB Conc 33.3 g/dL (31.6-35.5); Mean Corpuscular Hemoglobin 29.2 pg (28.0-33.3); Mean Corpuscular Volume 87.6 fL (83.0-100.0); Mean Platelet Volume 10.4 fL (9.4-12.4); Monocytes # 0.8 K/mcL (0.0-1.3); Monocytes % 5.6 %; Platelet Count 238 K/mcL (140-400); Red Blood Count 4.28 M/mcL (3.82-4.97); Red Cell Distribution Width 12.7 % (11.5-14.5); Segmented Neutrophils % 81.6 %; White Blood Count 13.5 K/mcL (4.3-11.1)
[2021-05-20 22:42] LABS: Alanine Aminotransferase 12 Units/L (7-52); Albumin 3.6 g/dL (3.5-5.7); Albumin/Globulin Ratio 0.9 (1.1-2.2); Alkaline Phosphatase 98 Units/L (34-104); Aspartate Amino Transferase 15 Units/L (13-39); BUN/Creatinine Ratio 13 (6-26); Bilirubin,Indirect 0.7 mg/dL (0.0-1.0); Bilirubin,Total 0.7 mg/dL (0.3-1.0); Blood Urea Nitrogen 19 mg/dL (6-20); Calcium 9.5 mg/dL (8.6-10.3); Carbon Dioxide 25 mEq/L (23-29); Chloride 98 mEq/L (98-107); Glucose 317 mg/dL (70-105); Osmolality,Calculated 288 (280-300); Potassium 4.4 mEq/L (3.5-5.1); Sodium 132 mEq/L (136-145); Total Protein 7.6 g/dL (6.4-8.9); Troponin I < 0.03 ng/mL (< 0.04); eGFR For African Americans 47 (> 60); eGFR For Non-African Americans 39 (> 60)
[2021-05-20] MEDS ORDERED: 0.9 % Sodium Chloride 1,000 ML IVC ONE (22:44)
[2021-05-20] MEDS ORDERED: Piperacillin/Tazobactam 3.375 GM in Water for inj. (sterile) 20 ML IVP ONE (22:45)
[2021-05-20] MEDS ORDERED: Vancomycin 1,500 MG/265 ML IV.SOLN IVPB ONE (23:00)
[2021-05-21] MEDS ORDERED: *HR* Dextrose 50 % in Water (Syg) 50 ML SYRINGE IVP PRN (00:50)
[2021-05-21] MEDS ORDERED: D5% in Water 1,000 ML IVC PRN (00:50)
[2021-05-21] MEDS ORDERED: Dextrose Gel 15 GM/37.5 ML TUBE PO PRN ×2 (00:50)
[2021-05-21] MEDS ORDERED: Melatonin 3 MG TABLET PO PRN (00:53)
[2021-05-21] MEDS ORDERED: Naloxone 0.4 MG/ML INJ IVP PRN (00:53)
[2021-05-21] MEDS ORDERED: Ringers Solution, Lactated 1,000 ML IVC SCH (01:00)
[2021-05-21] MEDS: Ibuprofen 400 MG TABLET PO PRN ×2 (01:37→23:27)
[2021-05-21] MEDS: Insulin LISPRO 300 UNITS/3 ML VIAL SUBQ SCH ×4 (01:39→17:18)
[2021-05-21] MEDS: Ondansetron ODT 4 MG TAB.RAPDIS SL PRN ×2 (01:57→15:46)
[2021-05-21 02:10] LABS: Basophils % 0.2 %; Eosinophils # 0.1 K/mcL (0.0-0.6); Eosinophils % 0.5 %; Hematocrit 34.7 % (35.3-44.9); Hemoglobin 11.7 g/dL (11.5-15.4); Immature Granulocytes % 0.6 % (0-4); Lymphocytes # 1.2 K/mcL (0.6-4.6); Lymphocytes % 8.3 %; Mean Corpuscular HGB Conc 33.7 g/dL (31.6-35.5); Mean Corpuscular Hemoglobin 29.3 pg (28.0-33.3); Mean Platelet Volume 9.9 fL (9.4-12.4); Monocytes # 0.8 K/mcL (0.0-1.3); Monocytes % 5.6 %; Neutrophils # 11.7 K/mcL (1.6-8.9); Platelet Count 242 K/mcL (140-400); Red Blood Count 3.99 M/mcL (3.82-4.97); Red Cell Distribution Width 12.6 % (11.5-14.5); Segmented Neutrophils % 84.8 %; White Blood Count 13.8 K/mcL (4.3-11.1)
[2021-05-21] MEDS: Ringers Solution, Lactated 1,000 ML IVC SCH (02:10)
[2021-05-21 02:21] LABS: INR 1.1; Prothrombin Time 12.2 Seconds (9.4-12.1)
[2021-05-21 02:24] LABS: Activated Partial Thrombo Time 26.2 Seconds (26.0-36.0)
[2021-05-21 02:25] LABS: Albumin 3.6 g/dL (3.5-5.7); Bilirubin,Total 0.8 mg/dL (0.3-1.0); Calcium 9.2 mg/dL (8.6-10.3); Globulin 3.7 g/dL (2.4-3.5); Potassium 3.8 mEq/L (3.5-5.1); Total Protein 7.3 g/dL (6.4-8.9)
[2021-05-21 04:53] LABS: Estimated Average Glucose 177 mg/dl; Hemoglobin A1C 7.8 %
[2021-05-21] MEDS: Cefepime HCl 2,000 MG in 0.9 % Sodium Chloride Mini Bag 100 ML IVPB SCH ×3 (08:52→23:31)
[2021-05-21] MEDS ORDERED: *HR* HYDROmorphone PF 0.5 MG/0.5 ML SYRINGE IVP PRN (12:00)
[2021-05-21] MEDS ORDERED: Ondansetron 4 MG/2 ML VIAL IVP PRN (12:00)
[2021-05-21] MEDS ORDERED: *HR* FentaNYL (PF) 100 MCG/2 ML VIAL IVP PRN (12:00)
[2021-05-21] MEDS ORDERED: Vancomycin 1,500 MG/265 ML IV.SOLN IVPB SCH ×2 (12:00→23:00)
[2021-05-21] MEDS: *HR* Heparin 5,000 UNIT/ML VIAL SQ SCH (17:18)
[2021-05-21] MEDS ORDERED: Lidocaine -MPF 1% 5 ML AMPUL ONE (18:33)
[2021-05-21] MEDS ORDERED: *HR* Propofol 200 MG/20 ML VIAL IVP ONE (18:33)
[2021-05-21] MEDS ORDERED: Bupivacaine/EPI 1:200k 0.25% 50 ML VIAL ONE (19:03)
[2021-05-21] MEDS ORDERED: Vancomycin 1,000 MG VIAL ONE (19:38)
[2021-05-21] MEDS: Insulin DETEMIR 100 UNIT/ML X5UNITS SUBQ SCH (21:03)
[2021-05-21] MEDS ORDERED: *HR* Promethazine 25 MG/ML VIAL IM ONE (23:24)
[2021-05-22] MEDS: Ondansetron ODT 4 MG TAB.RAPDIS SL PRN (03:13)
[2021-05-22] MEDS: Acetaminophen 325 MG TABLET PO PRN ×2 (03:13→08:40)
[2021-05-22 03:24] LABS: Basophils % 0.3 %; Eosinophils # 0.1 K/mcL (0.0-0.6); Eosinophils % 0.6 %; Hematocrit 31.8 % (35.3-44.9); Hemoglobin 10.3 g/dL (11.5-15.4); Immature Granulocytes % 0.8 % (0-4); Lymphocytes # 1.1 K/mcL (0.6-4.6); Lymphocytes % 10.3 %; Mean Corpuscular HGB Conc 32.4 g/dL (31.6-35.5); Mean Corpuscular Hemoglobin 28.5 pg (28.0-33.3); Mean Corpuscular Volume 88.1 fL (83.0-100.0); Monocytes # 0.6 K/mcL (0.0-1.3); Monocytes % 5.4 %; Neutrophils # 8.6 K/mcL (1.6-8.9); Platelet Count 234 K/mcL (140-400); Red Blood Count 3.61 M/mcL (3.82-4.97); Red Cell Distribution Width 12.6 % (11.5-14.5); Segmented Neutrophils % 82.6 %; White Blood Count 10.4 K/mcL (4.3-11.1)
[2021-05-22 03:44] LABS: BUN/Creatinine Ratio 22 (6-26); Blood Urea Nitrogen 21 mg/dL (6-20); Calcium 8.8 mg/dL (8.6-10.3); Carbon Dioxide 24 mEq/L (23-29); Chloride 103 mEq/L (98-107); Glucose 174 mg/dL (70-105); Osmolality,Calculated 287 (280-300); Potassium 3.8 mEq/L (3.5-5.1); Sodium 135 mEq/L (136-145); eGFR For African Americans > 60 (> 60); eGFR For Non-African Americans > 60 (> 60)
[2021-05-22] MEDS: Ibuprofen 400 MG TABLET PO PRN (05:37)
[2021-05-22] MEDS: *HR* Heparin 5,000 UNIT/ML VIAL SQ SCH ×2 (05:37→17:21)
[2021-05-22 06:38] LABS: Bacteria,Urine Few per hpf (None-Few); Bilirubin,Urine Negative (Negative); Blood,Urine Negative (Negative); Budding Yeast,Urine Few per hpf (None Seen); Clarity,Urine Turbid (Clear); Color,Urine Yellow (Yellow); Glucose,Urine (UA) 100 mg/dL (Normal); Ketones,Urine 10 mg/dL (Negative); Leukocyte Esterase,Urine Large (Negative); Mucus,Urine Few per lpf (None-Few); Nitrite,Urine Negative (Negative); Protein,Urine 70 mg/dL (Neg-Trace); Specific Gravity,Urine > 1.030 (1.010-1.025); Squamous Epithelial Cell,Urine Moderate per hpf (None-Few); Transitional Epi Cells,Urine Few per hpf (None-Few); Urobilinogen,Urine Normal (Normal); WBC,Urine TNTC per hpf (0-3)
[2021-05-22 06:49] LABS: Sodium, Urine 116.2 mEq/L
[2021-05-22] MEDS: Cefepime HCl 2,000 MG in 0.9 % Sodium Chloride Mini Bag 100 ML IVPB SCH ×2 (07:23→17:21)
[2021-05-22] MEDS: Insulin LISPRO 300 UNITS/3 ML VIAL SUBQ SCH ×3 (07:23→17:21)
[2021-05-22] MEDS: Prochlorperazine 10 MG/2 ML VIAL IVP PRN ×2 (10:31→22:44)
[2021-05-22] MEDS: Insulin DETEMIR 100 UNIT/ML X5UNITS SUBQ SCH (20:48)
[2021-05-23] MEDS: Cefepime HCl 2,000 MG in 0.9 % Sodium Chloride Mini Bag 100 ML IVPB SCH ×3 (00:50→15:12)
[2021-05-23] MEDS: Vancomycin 1,250 MG/262.5 ML IV.SOLN IVPB SCH ×2 (01:55→15:11)
[2021-05-23 05:04] LABS: Basophils % 0.5 %; Eosinophils # 0.1 K/mcL (0.0-0.6); Eosinophils % 0.9 %; Hematocrit 32.5 % (35.3-44.9); Hemoglobin 11.2 g/dL (11.5-15.4); Immature Granulocytes % 1.7 % (0-4); Lymphocytes # 0.9 K/mcL (0.6-4.6); Lymphocytes % 13.6 %; Mean Corpuscular HGB Conc 34.5 g/dL (31.6-35.5); Mean Corpuscular Hemoglobin 29.8 pg (28.0-33.3); Mean Corpuscular Volume 86.4 fL (83.0-100.0); Mean Platelet Volume 9.8 fL (9.4-12.4); Monocytes # 0.4 K/mcL (0.0-1.3); Monocytes % 5.8 %; Neutrophils # 4.9 K/mcL (1.6-8.9); Platelet Count 266 K/mcL (140-400); Red Blood Count 3.76 M/mcL (3.82-4.97); Red Cell Distribution Width 12.2 % (11.5-14.5); Segmented Neutrophils % 77.5 %; White Blood Count 6.3 K/mcL (4.3-11.1)
[2021-05-23 05:23] LABS: BUN/Creatinine Ratio 19 (6-26); Blood Urea Nitrogen 15 mg/dL (6-20); Calcium 8.8 mg/dL (8.6-10.3); Carbon Dioxide 25 mEq/L (23-29); Chloride 102 mEq/L (98-107); Glucose 168 mg/dL (70-105); Osmolality,Calculated 287 (280-300); Potassium 3.9 mEq/L (3.5-5.1); Sodium 136 mEq/L (136-145); eGFR For African Americans > 60 (> 60); eGFR For Non-African Americans > 60 (> 60)
[2021-05-23] MEDS: *HR* Heparin 5,000 UNIT/ML VIAL SQ SCH ×2 (08:24→16:53)
[2021-05-23] MEDS: Insulin LISPRO 300 UNITS/3 ML VIAL SUBQ SCH ×3 (08:32→16:50)
[2021-05-23] MEDS ORDERED: Prochlorperazine 10 MG/2 ML VIAL IVP ONE (09:15)
[2021-05-23] MEDS: metroNIDAZOLE 500 MG TABLET PO SCH ×3 (15:11→21:06)
[2021-05-23] MEDS: *HR* Promethazine 25 MG/ML VIAL IM PRN ×2 (15:11→23:27)
[2021-05-23] MEDS: Lactobacillus 1 EACH CAP.SPRINK PO SCH (21:06)
[2021-05-23] MEDS: Insulin DETEMIR 100 UNIT/ML X5UNITS SUBQ SCH (23:27)
[2021-05-24] MEDS: Cefepime HCl 2,000 MG in 0.9 % Sodium Chloride Mini Bag 100 ML IVPB SCH ×2 (00:50→08:43)
[2021-05-24] MEDS: Vancomycin 1,250 MG/262.5 ML IV.SOLN IVPB SCH (03:26)
[2021-05-24] MEDS ORDERED: Scopolamine Patch 1.5 MG PATCH.TD72 TD ONE (03:35)
[2021-05-24] MEDS: *HR* Heparin 5,000 UNIT/ML VIAL SQ SCH ×2 (06:09→18:40)
[2021-05-24 07:23] LABS: Basophils # 0.1 K/mcL (0.0-0.2); Basophils % 0.6 %; Eosinophils % 0.5 %; Hematocrit 34.3 % (35.3-44.9); Hemoglobin 11.9 g/dL (11.5-15.4); Immature Granulocytes % 2.4 % (0-4); Lymphocytes # 0.9 K/mcL (0.6-4.6); Lymphocytes % 11.8 %; Mean Corpuscular HGB Conc 34.7 g/dL (31.6-35.5); Mean Corpuscular Hemoglobin 29.6 pg (28.0-33.3); Mean Corpuscular Volume 85.3 fL (83.0-100.0); Mean Platelet Volume 9.5 fL (9.4-12.4); Monocytes # 0.4 K/mcL (0.0-1.3); Monocytes % 4.6 %; Neutrophils # 6.2 K/mcL (1.6-8.9); Platelet Count 310 K/mcL (140-400); Red Blood Count 4.02 M/mcL (3.82-4.97); Red Cell Distribution Width 12.4 % (11.5-14.5); Segmented Neutrophils % 80.1 %; White Blood Count 7.8 K/mcL (4.3-11.1)
[2021-05-24 07:42] LABS: BUN/Creatinine Ratio 20 (6-26); Blood Urea Nitrogen 17 mg/dL (6-20); Carbon Dioxide 24 mEq/L (23-29); Chloride 101 mEq/L (98-107); Glucose 217 mg/dL (70-105); Osmolality,Calculated 288 (280-300); Potassium 3.7 mEq/L (3.5-5.1); Sodium 135 mEq/L (136-145); eGFR For African Americans > 60 (> 60); eGFR For Non-African Americans > 60 (> 60)
[2021-05-24] MEDS: Lactobacillus 1 EACH CAP.SPRINK PO SCH ×2 (08:43→18:46)
[2021-05-24] MEDS: Insulin LISPRO 300 UNITS/3 ML VIAL SUBQ SCH ×3 (08:44→17:19)
[2021-05-24] MEDS: metroNIDAZOLE 500 MG TABLET PO SCH ×3 (08:44→18:46)
[2021-05-24] MEDS: Ringers Solution, Lactated 1,000 ML IVC SCH (10:07)
[2021-05-24 15:40] VITALS: BP 161/90; PULSE 97; TEMP 98.2; O2SAT 97
[2021-05-24] MEDS ORDERED: Vancomycin 1,250 MG/262.5 ML IV.SOLN IVPB SCH (18:00)
[2021-05-24] MEDS: Insulin DETEMIR 100 UNIT/ML X5UNITS SUBQ SCH (18:46)
== END 2021-05-24 21:30 | disposition home health service (06) | DRG 710 ==
LOC: 2ANU 16:38 → 4WAOSI 16:38 → EMEROOARM 16:38 → SUATTDRO 23:50 → 4WAOSI 05-21 00:53
PROVIDERS: ADMIT Internal Medicine; ATTEND Family Medicine

== ENCOUNTER 2021-05-31 20:06 | Inpatient (IN) ==
[2021-05-31] MEDS ORDERED: 0.9 % Sodium Chloride 1,000 ML IVC ONE (20:22)
[2021-05-31] MEDS ORDERED: Ondansetron 4 MG/2 ML VIAL IVP ONE (20:26)
[2021-05-31 21:10] LABS: Basophils % 0.3 %; Eosinophils % 0.1 %; Hematocrit 36.2 % (35.3-44.9); Hemoglobin 12.1 g/dL (11.5-15.4); Immature Granulocytes % 0.6 % (0-4); Lymphocytes # 0.4 K/mcL (0.6-4.6); Lymphocytes % 3.7 %; Mean Corpuscular HGB Conc 33.4 g/dL (31.6-35.5); Mean Corpuscular Hemoglobin 28.7 pg (28.0-33.3); Mean Platelet Volume 9.7 fL (9.4-12.4); Monocytes # 0.4 K/mcL (0.0-1.3); Monocytes % 3.4 %; Neutrophils # 10.8 K/mcL (1.6-8.9); Platelet Count 220 K/mcL (140-400); Red Blood Count 4.21 M/mcL (3.82-4.97); Red Cell Distribution Width 12.7 % (11.5-14.5); Segmented Neutrophils % 91.9 %; White Blood Count 11.8 K/mcL (4.3-11.1)
[2021-05-31 21:27] LABS: Alanine Aminotransferase 13 Units/L (7-52); Albumin 3.6 g/dL (3.5-5.7); Alkaline Phosphatase 101 Units/L (34-104); Aspartate Amino Transferase 10 Units/L (13-39); Bilirubin,Indirect 0.6 mg/dL (0.0-1.0); Bilirubin,Total 0.6 mg/dL (0.3-1.0); Globulin 3.5 g/dL (2.4-3.5); Total Protein 7.1 g/dL (6.4-8.9)
[2021-05-31 21:28] LABS: Troponin I < 0.03 ng/mL (< 0.04)
[2021-05-31 21:44] LABS: Alanine Aminotransferase 12 Units/L (7-52); Albumin 3.6 g/dL (3.5-5.7); Alkaline Phosphatase 100 Units/L (34-104); Aspartate Amino Transferase 10 Units/L (13-39); BUN/Creatinine Ratio 15 (6-26); Bilirubin,Total 0.6 mg/dL (0.3-1.0); Blood Urea Nitrogen 12 mg/dL (6-20); C-Reactive Protein 44 mg/L (Less than 10); Calcium 8.8 mg/dL (8.6-10.3); Carbon Dioxide 24 mEq/L (23-29); Chloride 101 mEq/L (98-107); Globulin 3.5 g/dL (2.4-3.5); Glucose 203 mg/dL (70-105); Magnesium 1.3 mg/dL (1.6-2.6); Osmolality,Calculated 284 (280-300); Potassium 3.7 mEq/L (3.5-5.1); Sodium 134 mEq/L (136-145); Total Protein 7.1 g/dL (6.4-8.9); eGFR For African Americans > 60 (> 60); eGFR For Non-African Americans > 60 (> 60)
[2021-05-31 21:54] LABS: Activated Partial Thrombo Time 26.8 Seconds (26.0-36.0)
[2021-05-31 22:05] LABS: Influenza A PCR Negative (Negative); Influenza B PCR Negative (Negative); Resp. Syncytial Virus PCR Negative (Negative)
[2021-05-31] MEDS ORDERED: Isovue-370 500 ML BOTTLE IVP ONE ×2 (22:09→23:25)
[2021-05-31 22:10] LABS: SARS-CoV-2 by PCR (In House) Negative (Negative)
[2021-05-31] MEDS ORDERED: Doxycycline 100 MG in 0.9 % Sodium Chloride Mini Bag 100 ML IVPB ONE (22:10)
[2021-05-31] MEDS ORDERED: *HR* Promethazine 25 MG/ML VIAL IM ONE (23:26)
[2021-05-31 23:29] LABS: INR 1.1; Prothrombin Time 12.4 Seconds (9.4-12.1)
[2021-06-01 00:27] LABS: INR 1.1; Prothrombin Time 12.5 Seconds (9.4-12.1)
[2021-06-01] MEDS ORDERED: Naloxone 0.4 MG/ML INJ IVP PRN (01:28)
[2021-06-01] MEDS ORDERED: Ondansetron 4 MG/2 ML VIAL IVP PRN (01:28)
[2021-06-01] MEDS ORDERED: Acetaminophen 325 MG TABLET PO PRN (01:28)
[2021-06-01] MEDS ORDERED: *HR* OxyCODONE Immed Rel 5 MG TABLET PO PRN (01:28)
[2021-06-01] MEDS ORDERED: 0.9 % Sodium Chloride 1,000 ML IVC SCH (01:30)
[2021-06-01 01:43] LABS: Bilirubin,Urine Negative (Negative); Blood,Urine Negative (Negative); Clarity,Urine Clear (Clear); Color,Urine Colorless (Yellow); Glucose,Urine (UA) 300 mg/dL (Normal); Ketones,Urine Negative (Negative); Leukocyte Esterase,Urine Negative (Negative); Mucus,Urine Few per lpf (None-Few); Nitrite,Urine Negative (Negative); PH,Urine 6.5 pH Units (5.0-8.0); Protein,Urine 50 mg/dL (Neg-Trace); Specific Gravity,Urine > 1.030 (1.010-1.025); Squamous Epithelial Cell,Urine Few per hpf (None-Few); Urobilinogen,Urine Normal (Normal); WBC,Urine 0-3 per hpf (0-3)
[2021-06-01] MEDS ORDERED: Dextrose Gel 15 GM/37.5 ML TUBE PO PRN ×2 (01:45)
[2021-06-01] MEDS ORDERED: D5% in Water 1,000 ML IVC PRN (01:45)
[2021-06-01] MEDS ORDERED: *HR* Dextrose 50 % in Water (Syg) 50 ML SYRINGE IVP PRN (01:45)
[2021-06-01] MEDS ORDERED: Prochlorperazine 10 MG/2 ML VIAL IVP PRN (02:58)
[2021-06-01] MEDS: Vancomycin 1,250 MG/262.5 ML IV.SOLN IVPB SCH ×2 (03:10→17:45)
[2021-06-01] MEDS: *HR* HYDROcodone/Acet 5/325 mg TABLET PO PRN ×2 (03:11→21:00)
[2021-06-01] MEDS: Melatonin 3 MG TABLET PO PRN (03:11)
[2021-06-01 05:05] LABS: Basophils % 0.3 %; Hematocrit 31.9 % (35.3-44.9); Immature Granulocytes % 0.7 % (0-4); Lymphocytes # 1.2 K/mcL (0.6-4.6); Lymphocytes % 11.8 %; Mean Corpuscular HGB Conc 32.9 g/dL (31.6-35.5); Mean Corpuscular Hemoglobin 28.7 pg (28.0-33.3); Mean Corpuscular Volume 87.2 fL (83.0-100.0); Mean Platelet Volume 9.7 fL (9.4-12.4); Monocytes # 0.6 K/mcL (0.0-1.3); Monocytes % 6.2 %; Neutrophils # 7.9 K/mcL (1.6-8.9); Platelet Count 218 K/mcL (140-400); Red Blood Count 3.66 M/mcL (3.82-4.97); White Blood Count 9.7 K/mcL (4.3-11.1)
[2021-06-01 05:07] LABS: Hemoglobin 10.5 g/dL (11.5-15.4)
[2021-06-01 05:15] LABS: BUN/Creatinine Ratio 15 (6-26); Blood Urea Nitrogen 11 mg/dL (6-20); Calcium 8.1 mg/dL (8.6-10.3); Carbon Dioxide 25 mEq/L (23-29); Chloride 104 mEq/L (98-107); Glucose 140 mg/dL (70-105); Osmolality,Calculated 282 (280-300); Potassium 3.5 mEq/L (3.5-5.1); Sodium 135 mEq/L (136-145); eGFR For African Americans > 60 (> 60); eGFR For Non-African Americans > 60 (> 60)
[2021-06-01] MEDS ORDERED: Insulin LISPRO 300 UNITS/3 ML VIAL SUBQ SCH (06:00)
[2021-06-01] MEDS ORDERED: Cefepime HCl 2,000 MG in 0.9 % Sodium Chloride Mini Bag 100 ML IVPB SCH (08:00)
[2021-06-01] MEDS: lisinopriL 5 MG TABLET PO SCH (08:33)
[2021-06-01] MEDS: Pregabalin 75 MG CAPSULE PO SCH ×3 (08:33→21:01)
[2021-06-01] MEDS: Insulin LISPRO 300 UNITS/3 ML VIAL SUBQ SCH ×3 (12:00→21:02)
[2021-06-01 13:16] LABS: Basophils # 0.1 K/mcL (0.0-0.2); Basophils % 0.6 %; Eosinophils % 0.5 %; Hemoglobin 10.5 g/dL (11.5-15.4); Immature Granulocytes % 0.4 % (0-4); Lymphocytes # 1.4 K/mcL (0.6-4.6); Lymphocytes % 16.9 %; Mean Corpuscular HGB Conc 32.8 g/dL (31.6-35.5); Mean Corpuscular Hemoglobin 28.6 pg (28.0-33.3); Mean Corpuscular Volume 87.2 fL (83.0-100.0); Mean Platelet Volume 9.6 fL (9.4-12.4); Monocytes # 0.7 K/mcL (0.0-1.3); Monocytes % 8.2 %; Platelet Count 205 K/mcL (140-400); Red Blood Count 3.67 M/mcL (3.82-4.97); Red Cell Distribution Width 13.1 % (11.5-14.5); Segmented Neutrophils % 73.4 %; White Blood Count 8.2 K/mcL (4.3-11.1)
[2021-06-01] MEDS: metroNIDAZOLE 500 MG TABLET PO SCH ×2 (17:45→21:01)
[2021-06-01] MEDS: *HR* Heparin 5,000 UNIT/ML VIAL SQ SCH (17:45)
[2021-06-01 18:05] LABS: Basophils % 0.4 %; Eosinophils # 0.1 K/mcL (0.0-0.6); Eosinophils % 0.6 %; Hematocrit 32.7 % (35.3-44.9); Hemoglobin 10.9 g/dL (11.5-15.4); Immature Granulocytes % 0.4 % (0-4); Lymphocytes # 1.5 K/mcL (0.6-4.6); Mean Corpuscular HGB Conc 33.3 g/dL (31.6-35.5); Mean Corpuscular Hemoglobin 29.1 pg (28.0-33.3); Mean Corpuscular Volume 87.2 fL (83.0-100.0); Mean Platelet Volume 9.3 fL (9.4-12.4); Monocytes # 0.6 K/mcL (0.0-1.3); Monocytes % 7.1 %; Neutrophils # 5.9 K/mcL (1.6-8.9); Platelet Count 195 K/mcL (140-400); Red Blood Count 3.75 M/mcL (3.82-4.97); Red Cell Distribution Width 13.1 % (11.5-14.5); Segmented Neutrophils % 73.5 %; White Blood Count 8.1 K/mcL (4.3-11.1)
[2021-06-02] MEDS: Melatonin 3 MG TABLET PO PRN (00:29)
[2021-06-02] MEDS: Vancomycin 1,250 MG/262.5 ML IV.SOLN IVPB SCH ×2 (04:15→18:23)
[2021-06-02 04:36] LABS: Basophils # 0.1 K/mcL (0.0-0.2); Basophils % 0.8 %; Eosinophils # 0.1 K/mcL (0.0-0.6); Hematocrit 30.4 % (35.3-44.9); Hemoglobin 10.3 g/dL (11.5-15.4); Immature Granulocytes % 0.5 % (0-4); Lymphocytes # 1.5 K/mcL (0.6-4.6); Lymphocytes % 24.9 %; Mean Corpuscular HGB Conc 33.9 g/dL (31.6-35.5); Mean Corpuscular Hemoglobin 29.6 pg (28.0-33.3); Mean Corpuscular Volume 87.4 fL (83.0-100.0); Mean Platelet Volume 9.3 fL (9.4-12.4); Monocytes # 0.5 K/mcL (0.0-1.3); Monocytes % 8.5 %; Neutrophils # 3.9 K/mcL (1.6-8.9); Platelet Count 196 K/mcL (140-400); Red Blood Count 3.48 M/mcL (3.82-4.97); Red Cell Distribution Width 13.1 % (11.5-14.5); Segmented Neutrophils % 64.3 %; White Blood Count 6.1 K/mcL (4.3-11.1)
[2021-06-02 04:51] LABS: BUN/Creatinine Ratio 21 (6-26); Blood Urea Nitrogen 16 mg/dL (6-20); Calcium 7.9 mg/dL (8.6-10.3); Carbon Dioxide 27 mEq/L (23-29); Chloride 107 mEq/L (98-107); Glucose 182 mg/dL (70-105); Magnesium 1.7 mg/dL (1.6-2.6); Osmolality,Calculated 294 (280-300); Potassium 3.5 mEq/L (3.5-5.1); Sodium 139 mEq/L (136-145); eGFR For African Americans > 60 (> 60); eGFR For Non-African Americans > 60 (> 60)
[2021-06-02] MEDS: *HR* Heparin 5,000 UNIT/ML VIAL SQ SCH ×2 (05:10→18:25)
[2021-06-02] MEDS: Insulin LISPRO 300 UNITS/3 ML VIAL SUBQ SCH ×4 (08:55→22:31)
[2021-06-02] MEDS: metroNIDAZOLE 500 MG TABLET PO SCH ×3 (08:55→21:55)
[2021-06-02] MEDS: lisinopriL 5 MG TABLET PO SCH (08:55)
[2021-06-02] MEDS: Pregabalin 75 MG CAPSULE PO SCH ×3 (08:55→21:55)
[2021-06-02] MEDS: Insulin DETEMIR 100 UNIT/ML X5UNITS SUBQ SCH ×2 (14:28→22:30)
[2021-06-03] MEDS: Melatonin 3 MG TABLET PO PRN (00:21)
[2021-06-03] MEDS: Vancomycin 1,250 MG/262.5 ML IV.SOLN IVPB SCH ×2 (03:26→15:55)
[2021-06-03 04:14] LABS: BUN/Creatinine Ratio 19 (6-26); Blood Urea Nitrogen 12 mg/dL (6-20); Calcium 8.3 mg/dL (8.6-10.3); Carbon Dioxide 28 mEq/L (23-29); Chloride 105 mEq/L (98-107); Glucose 179 mg/dL (70-105); Osmolality,Calculated 288 (280-300); Potassium 3.5 mEq/L (3.5-5.1); Sodium 137 mEq/L (136-145); eGFR For African Americans > 60 (> 60); eGFR For Non-African Americans > 60 (> 60)
[2021-06-03] MEDS: *HR* Heparin 5,000 UNIT/ML VIAL SQ SCH ×2 (05:21→21:07)
[2021-06-03] MEDS ORDERED: Isovue-370 500 ML BOTTLE IVP ONE (07:46)
[2021-06-03] MEDS: metroNIDAZOLE 500 MG TABLET PO SCH ×3 (08:58→21:13)
[2021-06-03] MEDS: Insulin LISPRO 300 UNITS/3 ML VIAL SUBQ SCH ×4 (08:58→21:25)
[2021-06-03] MEDS: lisinopriL 5 MG TABLET PO SCH (08:58)
[2021-06-03] MEDS: Insulin DETEMIR 100 UNIT/ML X5UNITS SUBQ SCH ×2 (08:58→22:54)
[2021-06-03] MEDS: Pregabalin 75 MG CAPSULE PO SCH ×3 (08:58→21:13)
[2021-06-03 12:47] LABS: Basophils % 0.6 %; Eosinophils # 0.1 K/mcL (0.0-0.6); Eosinophils % 1.3 %; Hematocrit 33.1 % (35.3-44.9); Hemoglobin 11.1 g/dL (11.5-15.4); Immature Granulocytes % 0.6 % (0-4); Lymphocytes # 1.1 K/mcL (0.6-4.6); Lymphocytes % 21.7 %; Mean Corpuscular HGB Conc 33.5 g/dL (31.6-35.5); Mean Corpuscular Hemoglobin 28.8 pg (28.0-33.3); Mean Platelet Volume 9.4 fL (9.4-12.4); Monocytes # 0.3 K/mcL (0.0-1.3); Monocytes % 6.5 %; Neutrophils # 3.6 K/mcL (1.6-8.9); Platelet Count 214 K/mcL (140-400); Red Blood Count 3.85 M/mcL (3.82-4.97); Red Cell Distribution Width 12.9 % (11.5-14.5); Segmented Neutrophils % 69.3 %; White Blood Count 5.2 K/mcL (4.3-11.1)
[2021-06-03] MEDS ORDERED: *HR* FentaNYL (PF) 100 MCG/2 ML VIAL IVP PRN (15:50)
[2021-06-03] MEDS ORDERED: Ringers Solution, Lactated 1,000 ML IVC SCH (16:00)
[2021-06-03] MEDS ORDERED: Clindamycin 900 MG/50 ML 900 MG/50 ML IV.SOLN IVPB SCH (16:04)
[2021-06-03] MEDS ORDERED: *HR* Propofol 200 MG/20 ML VIAL IVP ONE (16:17)
[2021-06-03] MEDS ORDERED: Ondansetron 4 MG/2 ML VIAL ONE (16:21)
[2021-06-03] MEDS ORDERED: Lidocaine -MPF 2% 5 ML VIAL ONE (16:21)
[2021-06-03] MEDS ORDERED: Vancomycin 1,000 MG VIAL ONE (16:32)
[2021-06-03] MEDS ORDERED: *HR* FentaNYL (PF) 100 MCG/2 ML VIAL ONE (16:42)
[2021-06-03] MEDS ORDERED: EPHEDrine 50 MG/ML VIAL ONE (17:00)
[2021-06-03] MEDS: Clindamycin 900 MG/50 ML 900 MG/50 ML IV.SOLN IVPB SCH (21:13)
[2021-06-03] MEDS: Lactobacillus 1 EACH CAP.SPRINK PO SCH (21:13)
[2021-06-04] MEDS: *HR* HYDROcodone/Acet 5/325 mg TABLET PO PRN (01:22)
[2021-06-04] MEDS: Vancomycin 1,250 MG/262.5 ML IV.SOLN IVPB SCH ×2 (03:49→15:15)
[2021-06-04] MEDS: Clindamycin 900 MG/50 ML 900 MG/50 ML IV.SOLN IVPB SCH (06:02)
[2021-06-04] MEDS: *HR* Heparin 5,000 UNIT/ML VIAL SQ SCH (06:02)
[2021-06-04] MEDS: Pregabalin 75 MG CAPSULE PO SCH ×2 (09:42→15:19)
[2021-06-04] MEDS: lisinopriL 5 MG TABLET PO SCH (09:43)
[2021-06-04] MEDS: Insulin LISPRO 300 UNITS/3 ML VIAL SUBQ SCH ×2 (09:43→12:40)
[2021-06-04] MEDS: Lactobacillus 1 EACH CAP.SPRINK PO SCH (09:43)
[2021-06-04] MEDS: Insulin DETEMIR 100 UNIT/ML X5UNITS SUBQ SCH (09:43)
[2021-06-04 11:04] VITALS: BP 126/75; PULSE 81; TEMP 98.2; O2SAT 96
[2021-06-04] MEDS ORDERED: Vancomycin 1,500 MG/265 ML IV.SOLN IVPB SCH (15:00)
== END 2021-06-04 17:03 | disposition home health service (06) | DRG 314 ==
LOC: EMEROOARM 20:06 → 4WAOSI 20:06 → SUATTDRO 06-01 01:35 → 4WAOSI 06-01 01:57
PROVIDERS: ADMIT Internal Medicine; ATTEND Internal Medicine